=== PATIENT | male | born 1960 | race Caucasian/White ===

== ENCOUNTER 2016-06-03 07:56 | Day surgery (SDC) | payer MEDICARE ==
[2016-05-27 12:20] LABS: HEMATOCRIT 40.6 % (37.9-51.0); HEMOGLOBIN 13.6 g/dL (13.5-17.0); HGB HCT DIFFERENCE 0.2; MEAN CORPUSCULAR HEMOGLOBIN 30.1 pg (27.0-33.4); MEAN CORPUSCULAR HGB CONC 33.6 g/dL (32.0-36.0); MEAN CORPUSCULAR VOLUME 89 fl (80-97); RED BLOOD COUNT 4.54 10^6/uL (4.35-5.55); RED CELL DISTRIBUTION WIDTH 14.4 % (11.5-14.0); WHITE BLOOD COUNT 5.1 10^3/uL (4.0-10.5)
[2016-05-27 12:55] LABS: ALANINE AMINOTRANSFERASE 28 U/L (21-72); ALBUMIN 4.2 g/dL (3.5-5.0); ALKALINE PHOSPHATASE 89 U/L (38-126); AMYLASE 73 U/L (30-110); ANION GAP 14 (5-19); ASPARTATE AMINO TRANSFERASE 23 U/L (17-59); BILIRUBIN,DIRECT 0.4 mg/dL (0.0-0.4); BILIRUBIN,TOTAL 0.5 mg/dL (0.2-1.3); BLOOD UREA NITROGEN 22 mg/dL (7-20); CALCIUM 10.3 mg/dL (8.4-10.2); CARBON DIOXIDE 25 mmol/L (22-30); CHLORIDE 105 mmol/L (98-107); CREATININE RESULT 0.91 mg/dL (0.52-1.25); GLUCOSE 96 mg/dL (75-110); POTASSIUM 4.9 mmol/L (3.6-5.0); SODIUM 144.1 mmol/L (137-145); TOTAL PROTEIN 7.3 g/dL (6.3-8.2)
--- NOTE | 2016-05-27 14:40 | EKG REPORT ---
SEVERITY:- NORMAL ECG - SINUS RHYTHM : Confirmed by: Virgil Kramer 27-May-2016 14:40:01
[~2016-06-03 07:56] MED LIST: ACETAMINOPHEN 325 MG TABLET PO PRN; CEFAZOLIN 1 GM/D5W RTU 1 GM/50 ML RTUPB IV PRN; LACTATED RINGERS 1000 ML IV PRN
[2016-06-03] MEDS ORDERED: BUPIVACAINE HCL 0.25 % INJ/PF (2.5 MG/1 ML) 30 ML VIAL ONE (08:35)
[2016-06-03] MEDS ORDERED: MIDAZOLAM 2 MG/2 ML INJ ONE ×2 (09:06→10:08)
[2016-06-03] MEDS ORDERED: ALBUTEROL SULFATE 0.083% NEB 2.5 MG/3 ML AMPUL NEB ONE (09:06)
[2016-06-03] MEDS ORDERED: FENTANYL CITRATE INJ/PF 250 MCG/5 ML AMPULE ONE (10:08)
[2016-06-03] MEDS ORDERED: HYDROMORPHONE HCL INJ/PF 2 MG/ML AMPULE ONE (10:08)
[2016-06-03] MEDS ORDERED: PROPOFOL INJ 200 MG/20 ML VIAL IV ONE (10:09)
[2016-06-03] MEDS ORDERED: ACETAMINOPHEN 100 ML IV ONE (10:09)
[2016-06-03] MEDS ORDERED: DIPHENHYDRAMINE HCL 50 MG/ML VIAL IV PRN (10:59)
[2016-06-03] MEDS ORDERED: MEPERIDINE HCL/PF INJ 25 MG/1 ML DISP.SYRIN IV PRN (10:59)
[2016-06-03] MEDS ORDERED: PROMETHAZINE HCL INJ 25 MG/1 ML VIAL IV PRN ×2 (10:59)
[2016-06-03] MEDS ORDERED: FENTANYL CITRATE INJ/PF 100 MCG/2 ML AMPUL IV PRN ×3 (10:59)
--- NOTE | 2016-06-03 11:19 | Operative Report ---
Operative Report DATE OF SURGERY: 06/03/16 PREOPERATIVE DIAGNOSIS: Chronic cholecystitis POSTOPERATIVE DIAGNOSIS: Same OPERATION: Laparoscopic cholecystectomy SURGEON: RADHA MEADOWS BEEF PLUCK TRIMMER: ESSENCE BUNN ANESTHESIA: GA TISSUE REMOVED OR ALTERED: Gallbladder COMPLICATIONS: None ESTIMATED BLOOD LOSS: scant INTRAOPERATIVE FINDINGS: See below PROCEDURE: After obtaining informed consent, the patient was taken to the operating room. General Anesthesia was induced; the arms were extended, and the abdomen was exposed, and prepped and draped in a sterile fashion. Instrumentation was set up for laparoscopic cholecystectomy. Surgical plan and surgical timeout were conducted. A vertical incision was made above the umbilicus, and a verres needle was inserted uneventfully into the peritoneal cavity. Pneumoperitoneum was established. The verres needle was removed and a 5 mm trocar was inserted and a 5 mm flexible laparoscope was inserted. Visualization of the peritoneal cavity confirmed safe uneventful entry. Under direct visualization 3 additional 5 mm ports were established, one in the subxiphoid position and second in the subcostal position. Visualization of the hepatobiliary anatomy revealed no anatomic variations. Physical patient's obesity, and significant abdominal fat, a fifth port was placed in the sub-costal region under direct visualization, and a fan retractor was used to hold the omentum dorsally. There were multiple adhesions between the gallbladder and the gastro-colic region as well as the right first colon. All of these adhesions came down easily with blunt and minimal electrocautery dissection. Gallbladder was enlarged. Findings were clinically consistent with chronic cholecystitis . A grasper was placed on the fundus of the gallbladder and the gallbladder is elevated over the right surface of the liver; a second grasper was used to grasp the infundibulum of the gallbladder. The neck of the gallbladder and junction with the cystic duct was dissected out. The Cystic artery was in its usual location medial and cephalad to the cystic duct. The cystic artery had 2 branches and both were surrounded with a right angle clamp, clipped twice proximally and divided with laparoscopic scissors. We now opened the triangle of Calot by dividing the peritoneal reflection on both the medial and lateral sides of the cystic duct infundibular junction. The critical view was obtained. We now milked the cystic duct of any possible stones, clipped the cystic duct approximately 2 times once distally and divided with scissors. Multiple photos were taken. The gallbladder was now removed from the undersurface of the liver using hook cautery dissection. Graspers were repositioned and the gallbladder was removed uneventfully from the abdominal cavity through the super umbilical port site incision. The specimen was examined, then passed off to pathology for permanent analysis. We returned to the peritoneal cavity check for bleeding, and evidence of bile leak, and there was none. We Confirmed satisfactory placement of clips on cystic duct and cystic artery were secured . At this point we felt the operation was complete. The subcutaneous tissue was then anesthetized with quarter percent Marcaine Sponge and needle counts are correct. All ports removed under direct visualization pneumoperitoneum evacuated, and 5 mm port wounds closed with 3-0 Vicryl suture, benzoin and Steri-Strips. The patient was extubated, and taken to the recovery room in stable condition. The physician funeral home assistant, Ms. Bunn, provided assistance during this case by: Assisting and port insertion, retracting tissue, instillation of local anesthesia and closure of skin incisions.
--- NOTE | 2016-06-03 11:30 | PDOC DISCHARGE SUMMARY ---
Discharge Summary (SDC) - Discharge Final Diagnosis: cholecystitis Date of Surgery: 06/03/16 Discharge Date: 06/03/16 Condition: Stable Treatment or Instructions: [facility] [address], [place] [address] Discharge Instructions: Laparoscopic Surgery 1. General Information: a. DO NOT DRIVE a car or operate dangerous machinery for 3-4 days or while taking narcotic pain pills. b. DO NOT consume alcohol, tranquilizers, sleeping medications or any non- prescribed medications for 24 hours unless approved by your doctor or as long as taking narcotic prescription medications. c. DO NOT make important decisions or sign any important papers for the first 24 hours after surgery. d. When discharged home the same day of surgery have a responsible person with you for the first night. 2. Activity Restrictions:4 weeks. a. NO heavy lifting, straining abdominal muscles, bending over a lot, yard work, house work, or sports for [address] for 3-4 days or while taking _Percocet__ . c. It is fine to go for walks, up and down steps, ride in a car. d. Elevate your head when sleeping/resting. 3. Treatment: a. You may shower 24 hours after surgery, no baths or swimming for 2 weeks. Remove band-aids or dressings before shower but leave paper strips (steri-strips ) on the skin to fall off on their own. If still on at postoperative visit they will be removed then. b. Drainage of fluid or blood is not unusual from an incision. If occurs, you can clean with peroxide and cotton ball daily and cover with dry gauze until the wound seals. c. If a lot of bleeding occurs, you can hold pressure with a gauze or cloth over the site for 10 minutes and it will usually stop. If bleeding continues you will need to call for possible evaluation in office or emergency room. 4. Medications: a. ___Percocet_ may be taken for pain as needed, one tablet every 6 hours. Stop the narcotic when able since you cannot take it and drive, and they cause constipation. You may switch to plain Tylenol, Advil or Aleve as you transition from the narcotic. Many adults find good pain relief with Advil 600-800 mg three times a day with meals. This can cause indigestion, ulcers, and kidney problems with long-term use. b. You should resume all normal medications unless a change is specified by your doctors. 5. Diet: Begin with clear liquids and may progress to your normal diet if not nauseated. No high fat, high protein foods the day of surgery. 6. The following may occur after laparoscopic surgery: a. Shoulder or upper back ache from retained gas that should resolve in 1-2 days b. Soreness and bruising at incision sites will resolve with time. c. Scrotal swelling (labia in women) and bruising is often seen after hernia surgery. d. Sore throat e. Fatigue may last days to weeks. f. Difficulty urinating may occur and may need to come into emergency room for urinary catheter placement. 7. Notify Physician If: a. Worsening or pain not improved with pain medication b. Persistent nausea and vomiting c. Fever above 101 d. Persistent bleeding or swelling at operative site e. Unable to urinate and uncomfortable bladder 6-8 hours after surgery 8..Follow Up Care: a. Schedule a follow up appointment with your doctor for 2 weeks. In the event of any postoperative problems or questions or you may call the office during business hours or the On-Call physician evenings and weekends at [facility]. [facility] I understand the instructions for my postoperative care as described above and a copy has been given to me. Patient/Significant Other Witness Date Prescriptions: Oxycodone HCl/Acetaminophen [Percocet 5-325 mg Tablet] 1 tab PO Q6 PRN #20 tab PRN Reason: Discharge Diet: Other (Comments) - Start with clear liquids and progress as tolerated. Small portions only. Discharge Activity: Activity As Tolerated Report the Following to Your Physician Immediately: Nausea, Vomiting, Increase in Pain, Fever over 101 Degrees, Warmth, Drainage-Foul Smelling
[2016-06-03] MEDS ORDERED: EPHEDRINE SULFATE INJ 50 MG/1 ML AMPULE ONE (11:40)
[2016-06-03] MEDS ORDERED: FENTANYL CITRATE INJ/PF 100 MCG/2 ML AMPUL ONE (12:19)
[2016-06-03] MEDS ORDERED: OXYCODONE-ACETAMINOPHEN 5-325 MG TABLET ONE (13:19)
[2016-06-03] MEDS ORDERED: KETOROLAC TROMETHAMINE INJ/PF 30 MG/1 ML SDV ONE (13:19)
[2016-06-03] MEDS ORDERED: GLYCOPYRROLATE INJ 0.4 MG/2 ML VIAL ONE (13:46)
[2016-06-03] MEDS ORDERED: ONDANSETRON HCL INJ/PF 4 MG/2 ML SDV ONE (13:46)
[2016-06-03] MEDS ORDERED: NEOSTIGMINE METHYLSULFATE 10 MG/10 ML VIAL ONE (13:46)
[2016-06-03] MEDS ORDERED: SUCCINYLCHOLINE CHLORIDE INJ 200 MG/10 ML VIAL ONE (13:46)
[2016-06-03] MEDS ORDERED: DEXAMETHASONE SOD PHOSPHATE INJ 4 MG/1 ML VIAL ONE (13:46)
[2016-06-03] MEDS ORDERED: ROCURONIUM BROMIDE INJ 50 MG/5 ML VIAL IV ONE (13:46)
[2016-06-03 14:47] VITALS: BP 95/53
== END 2016-06-03 14:30 | disposition home or self-care (01) ==
LOC: OROUT 07:56
PROVIDERS: ATTEND Surgery
PROC: 0FT44ZZ Resection of Gallbladder, Percutaneous Endoscopic Approach (ICD-10-PCS; principal; 2016-06-03 10:30)
DX: K81.1 Chronic cholecystitis (principal); M19.90 Unspecified osteoarthritis, unspecified site; J44.9 Chronic obstructive pulmonary disease, unspecified; F41.9 Anxiety disorder, unspecified; F41.0 Panic disorder [episodic paroxysmal anxiety]; F17.210 Nicotine dependence, cigarettes, uncomplicated; I10 Essential (primary) hypertension; Z86.19 Personal history of other infectious and parasitic diseases; Z79.899 Other long term (current) drug therapy; Z79.1 Long term (current) use of non-steroidal anti-inflammatories (NSAID); Z79.51 Long term (current) use of inhaled steroids
CPT/HCPCS: 93005; 36415 ×2; 82150; 84132; 85027; 80076; 80048; 88304 ×2; 93010; 47562; J2250; J0690; J3490 ×2; J1100; J3010 ×2; J1885; A9270 ×2; J0330; J2405; J2704; J0131; 790; J1170

== ENCOUNTER 2016-12-02 08:43 | Day surgery (SDC) | payer MEDICARE ==
[~2016-12-02 08:43] MED LIST changes: -ACETAMINOPHEN 325 MG TABLET PO PRN; -CEFAZOLIN 1 GM/D5W RTU 1 GM/50 ML RTUPB IV PRN; +CHONDR SU A NA/HYALUR INTRAOC KIT (SURGICARE) ONE; +EPINEPHRINE INJ/PF 1 MG/1 ML AMPULE ONE; +KETOROLAC TROMETHAMINE 0.45% 4 DROP/0.4 ML DROPERETTE OD PRN; -LACTATED RINGERS 1000 ML IV PRN; +LIDOCAINE 1% INJ-PF (10 MG/ML) 30 ML SDV ONE; +TOBRAMYCIN SULFATE/DEXAMETH OPH OINTMENT 3.5 GM ONE
[2016-12-02] MEDS: TROPICAMIDE 1% OPH SOLN 3 ML OD PRN ×3 (08:57→09:31)
[2016-12-02] MEDS: CYCLOPENTOLATE 0.2%/PHENYLEPHRINE 1% OPH SOLN 2 ML OD PRN ×3 (08:57→09:31)
[2016-12-02] MEDS: BESIFLOXACIN HCL 0.6% OPH SUSP 5 ML BOTTLE OD PRN ×3 (08:58→10:02)
[2016-12-02] MEDS: TETRACAINE HCL 0.5% OPH SOLN 0.6 ML DROPERETTE OD PRN ×3 (08:59→09:37)
[2016-12-02] MEDS ORDERED: FENTANYL CITRATE INJ/PF 100 MCG/2 ML AMPUL ONE (09:27)
[2016-12-02] MEDS ORDERED: MIDAZOLAM 2 MG/2 ML INJ ONE (09:27)
== END 2016-12-02 11:00 | disposition home or self-care (01) ==
LOC: SC 08:43
PROVIDERS: ATTEND Ophthalmology
PROC: 089230Z Drainage of Right Anterior Chamber with Drainage Device, Percutaneous Approach (ICD-10-PCS; 2016-12-02)
PROC: 08RJ3JZ Replacement of Right Lens with Synthetic Substitute, Percutaneous Approach (ICD-10-PCS; principal; 2016-12-02 09:45)
DX: H25.11 Age-related nuclear cataract, right eye (principal); H40.1111 Primary open-angle glaucoma, right eye, mild stage; F17.210 Nicotine dependence, cigarettes, uncomplicated; M19.90 Unspecified osteoarthritis, unspecified site; J44.9 Chronic obstructive pulmonary disease, unspecified; I10 Essential (primary) hypertension; E78.00 Pure hypercholesterolemia, unspecified; D64.9 Anemia, unspecified; K21.9 Gastro-esophageal reflux disease without esophagitis; Z79.899 Other long term (current) drug therapy; Z88.5 Allergy status to narcotic agent; Z79.51 Long term (current) use of inhaled steroids; Z88.8 Allergy status to other drugs, medicaments and biological substances; R73.03 Prediabetes
CPT/HCPCS: 0191T; 66984; 142; C1783; J0171; J2250; J3010; J3490; V2630

== ENCOUNTER 2016-12-16 11:06 | Day surgery (SDC) | payer MEDICARE ==
[~2016-12-16 11:06] MED LIST changes: -KETOROLAC TROMETHAMINE 0.45% 4 DROP/0.4 ML DROPERETTE OD PRN; +KETOROLAC TROMETHAMINE 0.45% 4 DROP/0.4 ML DROPERETTE OS PRN
[2016-12-16] MEDS: TETRACAINE HCL 0.5% OPH SOLN 0.6 ML DROPERETTE OS PRN ×3 (12:10→12:50)
[2016-12-16] MEDS: TROPICAMIDE 1% OPH SOLN 3 ML OS PRN ×3 (12:11→12:35)
[2016-12-16] MEDS: BESIFLOXACIN HCL 0.6% OPH SUSP 5 ML BOTTLE OS PRN ×3 (12:11→13:11)
[2016-12-16] MEDS: CYCLOPENTOLATE 0.2%/PHENYLEPHRINE 1% OPH SOLN 2 ML OS PRN ×3 (12:11→12:35)
[2016-12-16] MEDS ORDERED: MIDAZOLAM 2 MG/2 ML INJ ONE ×2 (12:22→12:37)
== END 2016-12-16 13:47 | disposition home or self-care (01) ==
LOC: SC 11:06
PROVIDERS: ATTEND Ophthalmology
PROC: 089330Z Drainage of Left Anterior Chamber with Drainage Device, Percutaneous Approach (ICD-10-PCS; 2016-12-16)
PROC: 08RK3JZ Replacement of Left Lens with Synthetic Substitute, Percutaneous Approach (ICD-10-PCS; principal; 2016-12-16 12:15)
DX: H25.12 Age-related nuclear cataract, left eye (principal); H40.1121 Primary open-angle glaucoma, left eye, mild stage; F17.210 Nicotine dependence, cigarettes, uncomplicated; M19.90 Unspecified osteoarthritis, unspecified site; J44.9 Chronic obstructive pulmonary disease, unspecified; K21.9 Gastro-esophageal reflux disease without esophagitis; I10 Essential (primary) hypertension; E78.00 Pure hypercholesterolemia, unspecified; D64.9 Anemia, unspecified; R73.03 Prediabetes; G47.30 Sleep apnea, unspecified; N40.0 Benign prostatic hyperplasia without lower urinary tract symptoms; Z79.899 Other long term (current) drug therapy; Z88.5 Allergy status to narcotic agent; Z88.8 Allergy status to other drugs, medicaments and biological substances; Z98.41 Cataract extraction status, right eye; Z79.51 Long term (current) use of inhaled steroids
CPT/HCPCS: 0191T; 66984; 142; C1783; J0171; J2250; J3490; V2630

== ENCOUNTER 2017-10-09 15:45 | Emergency (ER) | payer MEDICARE ==
--- NOTE | 2017-10-09 16:34 | ER Document Report ---
ED Medical Screen (RME) - General Chief Complaint: Blood Pressure Problem Stated Complaint: NOT SLEEPING Time Seen by Provider: 10/09/17 16:31 Mode of Arrival: Wheelchair Information source: Patient, Relative TRAVEL OUTSIDE OF THE [place] IN LAST 30 DAYS: No - HPI Patient complains to provider of: slurred speech, insomnia Onset: Other - state pt. with slurred speech, insomnia and confusion starting 3 days ago. Is concerned he may have had a stroke - Related Data Allergies/Adverse Reactions: codeine [Codeine] Allergy (Verified 10/09/17 15:46) pregabalin [From Lyrica] Allergy (Verified 10/09/17 15:46) Past Medical History - Social History Chew tobacco use (# tins/day): No Frequency of alcohol use: None Drug Abuse: None - Past Medical History Cardiac Medical History: Reports: Hx Coronary Artery Disease, Hx Hypercholesterolemia, Hx Hypertension - MEDICATION Denies: Hx Heart Attack Pulmonary Medical History: Reports: Hx COPD, Hx Sleep Apnea Denies: Hx Asthma, Hx Bronchitis, Hx Pneumonia Neurological Medical History: Denies: Hx Cerebrovascular Accident, Hx Seizures Renal/ Medical History: Denies: Hx Peritoneal Dialysis GI Medical History: Reports: Hx Hepatitis - HEP C/REMISSION. Denies: Hx Hiatal Hernia, Hx Ulcer Musculoskeltal Medical History: Reports Hx Arthritis Psychiatric Medical History: Reports: Hx Depression Infectious Medical History: Reports: Hx Hepatitis - HEP C/REMISSION Past Surgical History: Reports: Hx Orthopedic Surgery - Back. Denies: Hx Open Heart Surgery, Hx Pacemaker - Immunizations Hx Diphtheria, Pertussis, Tetanus Vaccination: Yes Physical Exam - Vital signs Vitals: Temp Pulse Resp BP Pulse Ox 98.0 F 87 16 153/87 H 94 10/09/17 15:52 10/09/17 15:52 10/09/17 15:52 10/09/17 15:52 10/09/17 15:52 Course - Vital Signs Vital signs: Temp Pulse Resp BP Pulse Ox 98.0 F 87 16 153/87 H 94 10/09/17 15:52 10/09/17 15:52 10/09/17 15:52 10/09/17 15:52 10/09/17 15:52 Doctor's Discharge - Discharge Referrals: CATRACHITO RG MD [Primary Care Provider] - Follow up as needed
--- NOTE | 2017-10-09 17:29 | RADIOLOGY REPORT (SQ) ---
EXAM DESCRIPTION: CT HEAD WITHOUT COMPLETED DATE/TIME: 10/09/2017 5:17 pm REASON FOR STUDY: slurred speech, confusion COMPARISON: CT head 12/31/2015, 08/08/2015. TECHNIQUE: Axial images acquired through the brain without intravenous contrast. Images reviewed wi th bone, brain and subdural windows. Images stored on PACS. All CT scanners at this facility use dose modulation, iterative reconstruction, and/or weight based d osing when appropriate to reduce radiation dose to as low as reasonably achievable (ALARA). [facility]: Dose Right [facility]: CareDose [facility]: Dose Right [facility]: Teradose 4D [facility]: Smart [place] RADIATION DOSE: CT Rad equipment meets quality standard of care and radiation dose reduction techniq ues were employed. CTDIvol: 53.2 mGy. DLP: 964 mGy-cm. mGy. LIMITATIONS: None. FINDINGS: VENTRICLES: Normal size and contour. CEREBRUM: No mass effect. No hemorrhage. No midline shift. Normal welsh/white matter differentiatio n. No evidence for acute territorial infarction. CEREBELLUM: No mass effect. No hemorrhage. No alteration of density. No evidence for acute infarct ion. EXTRAAXIAL SPACES: No fluid collections. ORBITS AND GLOBE: Symmetrical contour of the globes. CALVARIUM: No depressed skull fracture. PARANASAL SINUSES: No air-fluid level. SOFT TISSUES: No hematoma. IMPRESSION: NO ACUTE INTRACRANIAL IMAGING FINDINGS. EVIDENCE OF ACUTE STROKE: NO. COMMENT: Quality ID # [id number]: Final reports with documentation of one or more dose reduction techniques (e.g., Automated exposure control, adjustment of the mA and/or kV according to patient size, use of iterative reconstruction technique) TECHNICAL DOCUMENTATION: JOB ID: [id number] 2010 [employer]- All Rights Reserved Reading location - IP/workstation name: [facility]
[2017-10-09 19:21] LABS: ABSOLUTE LYMPHOCYTES (AUTO) 1.9 10^3/uL (0.5-4.7); ABSOLUTE MONOCYTES (AUTO) 0.5 10^3/uL (0.1-1.4); ABSOLUTE NEUT (AUTO) 7.1 10^3/uL (1.7-8.2); BASOPHILS % (AUTO) 0.3 % (0-2); EOSINOPHILS % (AUTO) 0.1 % (0-6); HEMATOCRIT 40.6 % (37.9-51.0); HEMOGLOBIN 13.8 g/dL (13.5-17.0); LYMPHOCYTES % (AUTO) 19.8 % (13-45); MEAN CORPUSCULAR HEMOGLOBIN 30.7 pg (27.0-33.4); MEAN CORPUSCULAR HGB CONC 34.1 g/dL (32.0-36.0); MEAN CORPUSCULAR VOLUME 90 fl (80-97); MONOCYTES % (AUTO) 5.4 % (3-13); PLATELET COUNT 368 10^3/uL (150-450); RED CELL DISTRIBUTION WIDTH 14.1 % (11.5-14.0); SEGMENTED NEUTROPHILS % (AUTO) 74.4 % (42-78); TOTAL CELLS COUNTED % (AUTO) 100 %; WHITE BLOOD COUNT 9.6 10^3/uL (4.0-10.5)
[2017-10-09 19:25] LABS: APPEARANCE,URINE CLEAR; BILIRUBIN,URINE NEGATIVE (NEGATIVE); COLOR,URINE YELLOW; GLUCOSE, URINE NEGATIVE (NEGATIVE); KETONES,URINE NEGATIVE (NEGATIVE); LEUKOCYTE ESTERASE,URINE NEGATIVE (NEGATIVE); NITRITE,URINE NEGATIVE (NEGATIVE); PROTEIN,URINE NEGATIVE (NEGATIVE)
[2017-10-09 19:40] LABS: ALANINE AMINOTRANSFERASE 20 U/L (21-72); ALBUMIN 4.4 g/dL (3.5-5.0); ALKALINE PHOSPHATASE 95 U/L (38-126); ANION GAP 14 (5-19); ASPARTATE AMINO TRANSFERASE 19 U/L (17-59); BILIRUBIN,TOTAL 0.4 mg/dL (0.2-1.3); BLOOD UREA NITROGEN 40 mg/dL (7-20); CALCIUM 9.3 mg/dL (8.4-10.2); CARBON DIOXIDE 26 mmol/L (22-30); CHLORIDE 102 mmol/L (98-107); GLUCOSE 137 mg/dL (75-110); POTASSIUM 4.6 mmol/L (3.6-5.0); SODIUM 142.3 mmol/L (137-145)
--- NOTE | 2017-10-09 19:55 | ER Document Report ---
ED General - General Chief Complaint: Blood Pressure Problem Stated Complaint: NOT SLEEPING Time Seen by Provider: 10/09/17 16:31 Mode of Arrival: Wheelchair Notes: Patient is a 57-year-old male comes emergency department for chief complaint of difficulty sleeping, intermittent dizziness, leg pain, difficulty getting words out for the past days, and increased irritability. states he is just not acting himself. Patient states he did not want to come, she talked him into it. He denies fever or chills. He did have an episode of vomiting last night but none since. Past medical history includes hypertension, hyperlipidemia, CAD , COPD, sleep apnea, anxiety/depression, and back surgery. He is on chronic pain management, he states that he was afraid to take his trazodone because of his pain medications. He also has chronic dizziness with diagnosed vertigo, meclizine, did not take his meclizine today. He denies specific symptoms such as abdominal pain, chest pain, focal numbness or weakness, shortness of breath. He denies alcohol, has a history of cirrhosis in the past status post treatment. TRAVEL OUTSIDE OF THE [place] IN LAST 30 DAYS: No - Related Data Allergies/Adverse Reactions: codeine [Codeine] Allergy (Verified 10/09/17 16:35) pregabalin [From Lyrica] Allergy (Verified 10/09/17 16:35) Past Medical History - General Information source: Patient, Relative - Social History Smoking Status: Current Every Day Smoker Chew tobacco use (# tins/day): No Frequency of alcohol use: None Drug Abuse: None Lives with: Family Family History: Reviewed & Not Pertinent Patient has suicidal ideation: No Patient has homicidal ideation: No - Past Medical History Cardiac Medical History: Reports: Hx Coronary Artery Disease, Hx Hypercholesterolemia, Hx Hypertension - MEDICATION Denies: Hx Heart Attack Pulmonary Medical History: Reports: Hx COPD, Hx Sleep Apnea Denies: Hx Asthma, Hx Bronchitis, Hx Pneumonia Neurological Medical History: Denies: Hx Cerebrovascular Accident, Hx Seizures Renal/ Medical History: Denies: Hx Peritoneal Dialysis GI Medical History: Reports: Hx Hepatitis - HEP C/REMISSION. Denies: Hx Hiatal Hernia, Hx Ulcer Musculoskeletal Medical History: Reports Hx Arthritis Psychiatric Medical History: Reports: Hx Depression Infectious Medical History: Reports: Hx Hepatitis - HEP C/REMISSION Past Surgical History: Reports: Hx Cholecystectomy, Hx Neurologic Surgery - back , Hx Orthopedic Surgery - Back. Denies: Hx Open Heart Surgery, Hx Pacemaker - Immunizations Hx Diphtheria, Pertussis, Tetanus Vaccination: Yes Review of Systems - Review of Systems Constitutional: See HPI EENT: No symptoms reported Cardiovascular: No symptoms reported Respiratory: No symptoms reported Gastrointestinal: No symptoms reported Genitourinary: No symptoms reported Male Genitourinary: No symptoms reported Musculoskeletal: No symptoms reported Skin: No symptoms reported Hematologic/Lymphatic: No symptoms reported Neurological/Psychological: See HPI Physical Exam - Vital signs Vitals: Temp Pulse Resp BP Pulse Ox 98.0 F 87 16 153/87 H 94 10/09/17 15:52 10/09/17 15:52 10/09/17 15:52 10/09/17 15:52 10/09/17 15:52 - Notes Notes: GENERAL: Alert, interacts well. No acute distress. HEAD: Normocephalic, atraumatic. EYES: Pupils equal, round, and reactive to light. Extraocular movements intact. ENT: Oral mucosa moist, tongue midline. NECK: Full range of motion. Supple. Trachea midline. LUNGS: Clear to auscultation bilaterally, no wheezes, rales, or rhonchi. No respiratory distress. HEART: Regular rate and rhythm. No murmur ABDOMEN: Questionable mild distention, no tenderness, bowel sounds present EXTREMITIES: Moves all 4 extremities spontaneously. No edema, normal radial and dorsalis pedis pulses bilaterally. No cyanosis. BACK: no cervical, thoracic, lumbar midline tenderness. No saddle anesthesia, normal distal neurovascular exam. NEUROLOGICAL: Alert and oriented x3. Normal speech. [cranial nerves II through XII grossly intact]. PSYCH: Patient intermittently becomes very emotional and raises his voice, talks for an extended period before calming down. Apologetic afterwards. This is in a cycle. SKIN: Warm, dry, normal turgor. No rashes or lesions noted. Course - Re-evaluation Re-evalutation: Patient became very riled up after and his negative CAT scan of the head, yelling at his that he told her he was fine. He did become calm afterwards. Patient was started on prednisone 2 days ago, states that he was acting abnormally before this but I suspect his irritability, insomnia, and generally not feeling right are probably at least contributed to by the prednisone. He also got up in the middle of the night and vomited once last night, no abdominal complaints since. Patient is cooperative, alert, has no slurred speech, has a normal neurological evaluation, negative CAT scan of the head almost 3 days after his initial presenting symptoms, reported intermittent slurred speech which was mild, low suspicion of CVA as a result. Review of remaining labs shows nonspecific unremarkable CBC, chemistry shows creatinine at approximate baseline with elevated BUN, generally unremarkable otherwise. Urinalysis unremarkable. Discussed additional therapies or workup including given IV fluids but this was declined. Patient states he is ready to go home. Patient states that he will take his trazodone to help him sleep at night, he states he is going to stop the prednisone because it is not helping any feels like it is making him worse, discussed follow-up and return precautions, patient and state understanding and agreement. - Vital Signs Vital signs: Temp Pulse Resp BP Pulse Ox 97.9 F 80 18 149/94 H 93 10/09/17 20:30 10/09/17 20:30 10/09/17 20:30 10/09/17 20:30 10/09/17 20:30 - Laboratory Result Diagrams: 10/09/17 18:45 10/09/17 18:45 Laboratory results interpreted by me: 10/09/17 10/09/17 10/09/17 18:45 18:45 18:45 RDW 14.1 H BUN 40 H Creatinine 1.30 H Est GFR (Non-Af Amer) 57 L Glucose 137 H ALT 20 L Urine Urobilinogen 2.0 H Discharge - Discharge Clinical Impression: Dizziness, Medication side effect Insomnia Qualifiers: Insomnia type: unspecified Qualified Code(s): G47.00 - Insomnia, unspecified Condition: Stable Disposition: HOME, SELF-CARE Additional Instructions: Your laboratory workup, CAT scan, and evaluation did not show any concerning abnormalities. Your symptoms including insomnia, irritability, and the vomiting episode are most likely from the prednisone. I recommend stopping this. Continue other medications as prescribed. Return if you worsen including returned vomiting, fever, weakness on one side of body, severe headache, or any other concerning or worsening symptoms. Referrals: CATRACHITO RG MD [Primary Care Provider] - Follow up as needed
[2017-10-09 20:38] VITALS: BP 149/94
== END 2017-10-09 21:22 | disposition home or self-care (01) ==
LOC: ER 15:45
DX: G47.00 Insomnia, unspecified (principal); T38.0X5A Adverse effect of glucocorticoids and synthetic analogues, initial encounter; R42 Dizziness and giddiness; M79.606 Pain in leg, unspecified; X58.XXXA Exposure to other specified factors, initial encounter; F17.200 Nicotine dependence, unspecified, uncomplicated; Z88.6 Allergy status to analgesic agent
CPT/HCPCS: 36415; 70450; 80053; 81001; 85025; 99283

== ENCOUNTER 2018-08-01 18:00 | Emergency (ER) | payer MEDICARE ==
[2018-08-01] MEDS ORDERED: OXYCODONE-ACETAMINOPHEN 5-325 MG TABLET PO ONE (18:48)
--- NOTE | 2018-08-01 18:59 | ER Document Report ---
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 He had another incident and fell onto his foot and the said she heard "a pop around the whole house". Patient is in acute pain at this time and cannot bear any weight on the extremity. He has no range of motion due to pain and swelling. He does have distal pulses and brisk cap refill. He also complains of tailbone pain. No fevers or chills, no other complaints. - REPRODUCTIVE Reproductive: DENIES: : - MUSCULOSKELETAL Musculoskeletal: REPORTS: Extremity pain - R ankle Past Medical History - Social History Smoking Status: Current Every Day Smoker Chew tobacco use (# tins/day): No Frequency of alcohol use: None Drug Abuse: None Family History: Reviewed & Not Pertinent Patient has suicidal ideation: No Patient has homicidal ideation: No - Past Medical History Cardiac Medical History: Reports: Hx Coronary Artery Disease, Hx Hypercholesterolemia, Hx Hypertension - MEDICATION Denies: Hx Heart Attack Pulmonary Medical History: Reports: Hx COPD, Hx Sleep Apnea Denies: Hx Asthma, Hx Bronchitis, Hx Pneumonia Neurological Medical History: Denies: Hx Cerebrovascular Accident, Hx Seizures Renal/ Medical History: Denies: Hx Peritoneal Dialysis GI Medical History: Reports: Hx Hepatitis - HEP C/REMISSION. Denies: Hx Hiatal Hernia, Hx Ulcer Musculoskeletal Medical History: Reports Hx Arthritis Psychiatric Medical History: Reports: Hx Depression Infectious Medical History: Reports: Hx Hepatitis - HEP C/REMISSION Past Surgical History: Reports: Hx Cholecystectomy, Hx Neurologic Surgery - back, Hx Orthopedic Surgery - Back. Denies: Hx Open Heart Surgery, Hx Pacemaker - Immunizations Hx Diphtheria, Pertussis, Tetanus Vaccination: Yes Vertical Provider Document - CONSTITUTIONAL Notes: PHYSICAL EXAMINATION: Reviewed vital signs and charting by RN GENERAL: Alert, interacts well. Mild distress. HEAD: Normocephalic, atraumatic. EYES: Pupils equal, round. Extraocular movements intact. ENT: Oral mucosa moist, tongue midline. NECK: Full range of motion. Supple. Trachea midline. LUNGS: Clear to auscultation bilaterally, no wheezes, rales, or rhonchi. No respiratory distress. HEART: Regular rate and rhythm. No murmur ABDOMEN: Obese abdomen, soft, non-tender. EXTREMITIES: Significant swelling of the right ankle most prominent on the medial malleolus with acute tenderness to palpation, pulses are palpable 1+ DP and 1+ PT, with brisk cap refill. PSYCH: Normal affect, normal mood. SKIN: Warm, dry, normal turgor. No rashes or lesions noted. - INFECTION CONTROL TRAVEL OUTSIDE OF THE [place] IN LAST 30 DAYS: No Course - Re-evaluation Re-evalutation: 08/01/18 18:59 Plan to get a right ankle complete. I will also get a lumbar spine completed as patient complained of tailbone pain after the fall. Patient is a complex pain patient's I am giving him Percocet 33 25 2 tablets p.o. once. Of note, at triage patient's blood pressure was 203/175 I am asking PCT to get a another set of vitals. 08/01/18 19:45 X-ray shows bimalleolar tubular/fibula fracture of the right lower extremity. No evidence of coccyx or sacral fracture seen in the other image. Plan to put a posterior splint/stirrup splint, give crutches, and have patient follow-up with orthopedics in the morning. Vital signs are within normal limits he has a normal 08/01/18 20:07 - Vital Signs Vital signs: Temp Pulse Resp BP Pulse Ox 98.4 F 85 20 203/175 H 93 08/01/18 18:04 08/01/18 18:04 08/01/18 18:04 08/01/18 18:04 08/01/18 18:04 Discharge - Discharge Clinical Impression: Bimalleolar fracture of right ankle Qualifiers: Encounter type: initial encounter Fracture type: closed Qualified Code(s): S82.841A - Displaced bimalleolar fracture of right lower leg, initial encounter for closed fracture Condition: Good Disposition: HOME, SELF-CARE Additional Instructions: You are seen in emergency department this evening for a fracture of your right ankle. You broke post the distal tibia and the distal fibula, this is called a bimalleolar fracture. We have placed you in a splint and you need to follow-up with orthopedics first thing in the morning. Please call them at 730 or 8:00. You can take your home pain medications that you have prescribed for pain control. If your toes starts to turn purple or you are losing circulation, you have severe shortness of breath or chest pain, or you have any other concerning symptoms please come back to the emergency department for reevaluation. Referrals: CATRACHITO RG MD [Primary Care Provider] - Follow up as needed RICA SILVERIO DO [ACTIVE STAFF] - Follow up tomorrow
[2018-08-01 19:33] VITALS: BP 140/80
--- NOTE | 2018-08-01 19:40 | RADIOLOGY REPORT (SQ) ---
EXAM DESCRIPTION: L SPINE WHOLE COMPLETED DATE/TIME: 08/01/2018 7:16 pm REASON FOR STUDY: fall COMPARISON: None. NUMBER OF VIEWS: Five views including obliques. TECHNIQUE: AP, lateral, oblique, and sacral radiographic images acquired of the lumbar spine. LIMITATIONS: None. FINDINGS: MINERALIZATION: Normal. SEGMENTATION: Normal. No transitional anatomy. ALIGNMENT: Normal. VERTEBRAE: Maintained height. No fracture or worrisome bone lesion. DISCS: Disc spaces are narrowed from L4-S1. POSTERIOR ELEMENTS: Hypertrophic facet changes are present throughout the lumbar spine. HARDWARE: None in the spine. PARASPINAL SOFT TISSUES: Normal. PELVIS: Intact as visualized. No fractures or worrisome bone lesions. SI joints intact. OTHER: No other significant finding. IMPRESSION: Degenerative disc disease and facet arthropathy. TECHNICAL DOCUMENTATION: JOB ID: [id number]- All Rights Reserved Reading location - IP/workstation name: [email or web address]
--- NOTE | 2018-08-01 19:41 | RADIOLOGY REPORT (SQ) ---
EXAM DESCRIPTION: ANKLE RIGHT COMPLETE COMPLETED DATE/TIME: 08/01/2018 7:16 pm REASON FOR STUDY: fall COMPARISON: None. NUMBER OF VIEWS: Three views. TECHNIQUE: AP, lateral, and oblique radiographic images acquired of the right ankle. LIMITATIONS: None. FINDINGS: MINERALIZATION: Normal. BONES: There is an oblique fracture of the distal fibula and transverse fracture of the medial malleo loan. JOINTS: No effusions. SOFT TISSUES: No soft tissue swelling. No foreign body. OTHER: No other significant finding. IMPRESSION: Bimalleolar fracture. TECHNICAL DOCUMENTATION: JOB ID: [id number] [employer]- All Rights Reserved Reading location - IP/workstation name: [email or web address]
== END 2018-08-01 20:59 | disposition home or self-care (01) ==
LOC: ER 18:00
PROC: 2W3QX1Z Immobilization of Right Lower Leg using Splint (ICD-10-PCS; principal; 2018-08-01)
DX: S82.841A Displaced bimalleolar fracture of right lower leg, initial encounter for closed fracture (principal); M53.3 Sacrococcygeal disorders, not elsewhere classified; W19.XXXA Unspecified fall, initial encounter; Y93.9 Activity, unspecified; Y92.009 Unspecified place in unspecified non-institutional (private) residence as the place of occurrence of the external cause; Y99.9 Unspecified external cause status; M19.90 Unspecified osteoarthritis, unspecified site; F32.9 Major depressive disorder, single episode, unspecified; Z90.49 Acquired absence of other specified parts of digestive tract; I25.10 Atherosclerotic heart disease of native coronary artery without angina pectoris; E78.00 Pure hypercholesterolemia, unspecified; I10 Essential (primary) hypertension; Z79.899 Other long term (current) drug therapy; J44.9 Chronic obstructive pulmonary disease, unspecified; G47.30 Sleep apnea, unspecified; F17.200 Nicotine dependence, unspecified, uncomplicated
CPT/HCPCS: 99283; 73610; 72110; 29515; A9270

== ENCOUNTER 2018-08-08 09:37 | Day surgery (SDC) | payer MEDICARE ==
[~2018-08-08 09:37] MED LIST changes: +CEFAZOLIN 1 GM/D5W RTU 0 GM/0 ML RTUPB IV ONE; +CEFAZOLIN 2 GM/D5W RTU 2 GM/50 ML RTUPB IV ONE; +CEFAZOLIN 2 GM/D5W RTU 2 GM/50 ML RTUPB IV PRN; -CHONDR SU A NA/HYALUR INTRAOC KIT (SURGICARE) ONE; -EPINEPHRINE INJ/PF 1 MG/1 ML AMPULE ONE; -KETOROLAC TROMETHAMINE 0.45% 4 DROP/0.4 ML DROPERETTE OS PRN; -LIDOCAINE 1% INJ-PF (10 MG/ML) 30 ML SDV ONE; -TOBRAMYCIN SULFATE/DEXAMETH OPH OINTMENT 3.5 GM ONE
[2018-08-08 10:28] VITALS: BP 132/101
[2018-08-08 10:44] LABS: HEMATOCRIT 39.5 % (37.9-51.0); HEMOGLOBIN 13.4 g/dL (13.5-17.0); MEAN CORPUSCULAR HEMOGLOBIN 29.8 pg (27.0-33.4); MEAN CORPUSCULAR HGB CONC 33.8 g/dL (32.0-36.0); MEAN CORPUSCULAR VOLUME 88 fl (80-97); PLATELET COUNT 293 10^3/uL (150-450); RED BLOOD COUNT 4.48 10^6/uL (4.35-5.55); RED CELL DISTRIBUTION WIDTH 14.6 % (11.5-14.0); WHITE BLOOD COUNT 6.9 10^3/uL (4.0-10.5)
[2018-08-08] MEDS ORDERED: DEXAMETHASONE SOD PHOSPHATE INJ 4 MG/1 ML VIAL ONE (11:02)
[2018-08-08] MEDS ORDERED: FENTANYL CITRATE INJ/PF 100 MCG/2 ML AMPUL ONE (11:02)
[2018-08-08] MEDS ORDERED: MIDAZOLAM 2 MG/2 ML INJ ONE (11:02)
[2018-08-08] MEDS ORDERED: ONDANSETRON HCL INJ/PF 4 MG/2 ML SDV ONE (11:02)
[2018-08-08] MEDS ORDERED: PROPOFOL INJ 200 MG/20 ML VIAL IV ONE (11:03)
[2018-08-08 11:06] LABS: ANION GAP 13 (5-19); BLOOD UREA NITROGEN 19 mg/dL (7-20); CALCIUM 9.7 mg/dL (8.4-10.2); CARBON DIOXIDE 26 mmol/L (22-30); CHLORIDE 103 mmol/L (98-107); GLUCOSE 115 mg/dL (75-110); POTASSIUM 4.5 mmol/L (3.6-5.0); SODIUM 141.5 mmol/L (137-145)
[2018-08-08] MEDS ORDERED: BUPIVACAINE HCL 0.5%-EPI 1:200000 INJ/PF 30 ML VIAL ONE (11:07)
--- NOTE | 2018-08-08 11:47 | RADIOLOGY REPORT (SQ) ---
EXAM DESCRIPTION: CHEST SINGLE VIEW COMPLETED DATE/TIME: 08/08/2018 11:02 am REASON FOR STUDY: PRE-OP COMPARISON: 12/31/2015 EXAM PARAMETERS: NUMBER OF VIEWS: One view. TECHNIQUE: Single frontal radiographic view of the chest acquired. RADIATION DOSE: NA LIMITATIONS: None. FINDINGS: LUNGS AND PLEURA: No opacities, masses or pneumothorax. No pleural effusion. MEDIASTINUM AND HILAR STRUCTURES: No masses. Contour normal. HEART AND VASCULAR STRUCTURES: Heart normal in size. Normal vasculature. BONES: No acute findings. HARDWARE: None in the chest. OTHER: No other significant finding. IMPRESSION: 1. NO ACUTE RADIOGRAPHIC FINDING IN THE CHEST. TECHNICAL DOCUMENTATION: JOB ID: [id number] [employer]- All Rights Reserved Reading location - IP/workstation name: [email or web address]
--- NOTE | 2018-08-08 12:55 | EKG REPORT ---
SEVERITY:- ABNORMAL ECG - SINUS RHYTHM ABNRM R PROG, CONSIDER ASMI OR LEAD PLACEMENT NO CHANGE FROM PREVIOUS EKG. : Confirmed by: Joshua Jiménez MD 08-Aug-2018 12:55:03
--- NOTE | 2018-08-08 12:59 | PDOC CONSULTATION ---
Consultation Consult Date: 08/08/18 Attending physician:: RIK MCCLENDON Provider Consulted: BK YAN Consult reason:: abn ekg History of Present Illness Admission Date/PCP: CATRACHITO RG MD Patient complains of: Right ankle discomfort. History of Present Illness: PRIETO KAHN is a 57 year old male, was admitted preop for right ankle fracture following a fall. Patient while being interviewed by the anesthesiologist had a episode of diaphoresis. A twelve-lead EKG obtained showed QS complex V1 and V2. This is felt to be changed from before. I was asked to evaluate patient in preop consultation. Patient has known history of CAD, COPD. Patient did have a nuclear stress test in March which was apparently unremarkable. On questioning patient denied any chest pain or shortness of breath. Attendant with the patient tells me that he gets sweating spells often without any chest pains. Patient denies being diabetic. Past Medical History Cardiac Medical History: Reports: Coronary Artery Disease, Hyperlipidema, Hypertension - MEDICATION Denies: Myocardial Infarction Pulmonary Medical History: Reports: Chronic Obstructive Pulmonary Disease (COPD), Sleep Apnea Denies: Asthma, Bronchitis, Pneumonia Neurological Medical History: Denies: Seizures GI Medical History: Reports: Hepatitis - HEP C/REMISSION Denies: Hiatal Hernia Musculoskeltal Medical History: Reports: Arthritis Psychiatric Medical History: Reports: Depression Hematology: Denies: Anemia, Sickle Cell Disease Past Surgical History Past Surgical History: Reports: Cholecystectomy, Orthopedic Surgery - Back Denies: Pacemaker Social History Information Source: Patient Smoking Status: Current Every Day Smoker Frequency of Alcohol Use: Rare Drugs: None Hx Prescription Drug Abuse: No Family History Family History: Reviewed & Not Pertinent Parental Family History Reviewed: Yes Children Family History Reviewed: Yes Sibling(s) Family History Reviewed.: Yes Medication/Allergy Home Medications: Albuterol Sulfate [Proair HFA] 1 puff PO Q4H PRN 08/08/15 Baclofen [Baclofen 20 mg Tablet] 20 mg PO QID 08/08/15 Buspirone HCl 20 mg PO TID 08/08/15 Furosemide 40 mg PO DAILY PRN 08/08/15 Gabapentin 800 mg PO QID 08/08/15 Lisinopril 40 mg PO DAILY 08/08/15 Meloxicam 7.5 mg PO BID 06/09/16 Pantoprazole Sodium 40 mg PO DAILY 08/08/15 Quetiapine Fumarate [Seroquel] 200 mg PO QHS 08/08/15 Sertraline HCl 150 mg PO DAILY 08/08/15 Simvastatin [Zocor 20 mg Tablet] 20 mg PO QHS 08/08/15 Tamsulosin HCl 0.4 mg PO DAILY 08/08/15 Trazodone HCl 300 mg PO QHS 08/08/15 Fluticasone/Vilanterol [Breo Ellipta 100-25 Mcg INH] 1 each IH DAILY 11/26/16 Meclizine HCl 12.5 mg PO DAILY PRN 11/26/16 Polyethylene Glycol 3350 [Miralax Powder 17 gm/Packet] 1 packet PO DAILY 11/26/16 Methadone HCl [Dolophine 10 Mg Tablet] 10 mg PO TID 08/08/18 Allergies/Adverse Reactions: codeine [Codeine] Allergy (Verified 08/08/18 09:59) pregabalin [From Lyrica] Allergy (Verified 08/08/18 09:59) Review of Systems Constitutional: ABSENT: chills, fever(s), headache(s), weight gain, weight loss Eyes: ABSENT: visual disturbances Ears: ABSENT: hearing changes Cardiovascular: ABSENT: chest pain, dyspnea on exertion, edema, orthropnea, palpitations Respiratory: ABSENT: cough, hemoptysis Gastrointestinal: ABSENT: abdominal pain, constipation, diarrhea, hematemesis, hematochezia, nausea, vomiting Genitourinary: ABSENT: dysuria, hematuria Musculoskeletal: PRESENT: other - Right ankle fracture. ABSENT: joint swelling Integumentary: ABSENT: rash, wounds Neurological: ABSENT: abnormal gait, abnormal speech, confusion, dizziness, focal weakness, syncope Psychiatric: ABSENT: anxiety, depression, homidical ideation, suicidal ideation Endocrine: ABSENT: cold intolerance, heat intolerance, polydipsia, polyuria Hematologic/Lymphatic: ABSENT: easy bleeding, easy bruising Physical Exam Vital Signs: Temp Pulse Resp BP Pulse Ox 98.1 F 115 H 20 132/101 H 90 L 08/08/18 10:02 08/08/18 10:02 08/08/18 10:02 08/08/18 10:02 08/08/18 10:02 Intake & Output 08/07/18 08/08/18 08/09/18 06:59 06:59 06:59 Intake Total 0 Balance 0 Weight 110.677 kg General appearance: PRESENT: no acute distress, well-developed, well-nourished Head exam: PRESENT: atraumatic, normocephalic Eye exam: PRESENT: conjunctiva pink, EOMI, PERRLA. ABSENT: scleral icterus Ear exam: PRESENT: normal external ear exam Mouth exam: PRESENT: moist, tongue midline Neck exam: ABSENT: carotid bruit, JVD, lymphadenopathy, thyromegaly Respiratory exam: PRESENT: clear to auscultation stanley. ABSENT: rales, rhonchi, wheezes Cardiovascular exam: PRESENT: RRR. ABSENT: diastolic murmur, rubs, systolic murmur Pulses: PRESENT: normal dorsalis pedis pul Vascular exam: PRESENT: normal capillary refill GI/Abdominal exam: PRESENT: normal bowel sounds, soft. ABSENT: distended, guarding, mass, organolmegaly, rebound, tenderness Rectal exam: PRESENT: deferred Extremities exam: PRESENT: full ROM, +1 edema - Right lower extremity secondary to fracture., other - Right ankle fracture noted.. ABSENT: calf tenderness, clubbing, pedal edema Neurological exam: PRESENT: alert, awake, oriented to person, oriented to place, oriented to time, oriented to situation, CN II-XII grossly intact. ABSENT: motor sensory deficit Psychiatric exam: PRESENT: appropriate affect, normal mood. ABSENT: homicidal ideation, suicidal ideation Skin exam: PRESENT: dry, intact, warm. ABSENT: cyanosis, rash Results Laboratory Results: 08/08/18 10:20 08/08/18 10:20 08/08/18 08/08/18 10:20 10:20 WBC 6.9 RBC 4.48 Hgb 13.4 L Hct 39.5 MCV 88 MCH 29.8 MCHC 33.8 RDW 14.6 H Plt Count 293 Sodium 141.5 Potassium 4.5 Chloride 103 Carbon Dioxide 26 Anion Gap 13 BUN 19 Creatinine 0.87 Est GFR ( Amer) > 60 Est GFR (Non-Af Amer) > 60 Glucose 115 H Calcium 9.7 Impressions: Chest X-Ray 08/08/18 00:00 IMPRESSION: 1. NO ACUTE RADIOGRAPHIC FINDING IN THE CHEST. Assessment & Plan - Diagnosis (1) Abnormal electrocardiogram Is this a current diagnosis for this admission?: Yes (2) COPD (chronic obstructive pulmonary disease) Qualifiers: COPD type: unspecified COPD Qualified Code(s): J44.9 - Chronic obstructive pulmonary disease, unspecified Is this a current diagnosis for this admission?: Yes (3) Hypertension Qualifiers: Hypertension type: essential hypertension Qualified Code(s): I10 - Essential (primary) hypertension Is this a current diagnosis for this admission?: Yes (4) Bimalleolar fracture of right ankle Qualifiers: Encounter type: initial encounter Fracture type: closed Qualified Code(s): S82.841A - Displaced bimalleolar fracture of right lower leg, initial encounter for closed fracture Is this a current diagnosis for this admission?: Yes (5) Dyspnea Qualifiers: Dyspnea type: shortness of breath Qualified Code(s): R06.02 - Shortness of breath Is this a current diagnosis for this admission?: Yes - Notes Notes: Patient noted to have abnormal electrocardiogram. Possibly related to lead placement. Will repeat an EKG with proper lead placement. Since patient has dyspnea, will get a stat 2D echocardiogram. Will also look for any wall motion abnormalities in view of abnormal EKG. Patient advised on quitting smoking. Patient also advised to report any chest pains or increased shortness of breath. Further plans after review of 2D echo and EKG. Discussed with anesthesiologist and orthopedic surgeon. - Time Time Spent: 30 to 50 Minutes Medications reviewed and adjusted accordingly: Yes
--- NOTE | 2018-08-08 13:10 | EKG REPORT ---
SEVERITY:- NORMAL ECG - SINUS RHYTHM : Confirmed by: Joshua Jiménez MD 08-Aug-2018 13:09:18
--- NOTE | 2018-08-08 14:56 | XCELERA REPORT ---
[address] [address] Transthoracic Echocardiogram Report Name: PRIETO KAHN Age: 57 yrs Gender: Male : 1960 Patient Status: Outpatient [facility] Study Date: 08/08/2018 01:34 PM Height: 68 in Weight: 244 lb BSA: 2.2 m2 Procedure: A complete two-dimensional transthoracic echocardiogram was performed (2D, M-mode, spectral and color flow Doppler). The study was technically adequate with some images being suboptimal in quality. Reason For Study: CARDIAC CLEARANCE Ordering Physician: VIRGIL YAN Performed By: Patito Estevez Interpretation Summary The left ventricular ejection fraction is normal. There is borderline concentric left ventricular hypertrophy. Doppler measurements suggest pseudonormalized left ventricular relaxation, which is associated with grade II/IV or mild to moderate diastolic dysfunction The left ventricle is grossly normal size. No regional wall motion abnormalities noted. The right ventricular systolic function is normal. Borderline left atrial enlargement. The right atrium is normal in size There is a trace amount of mitral regurgitation There is no mitral valve stenosis. No aortic regurgitation is present. There is no aortic valve stenosis There is a trace or physiologic amount of tricuspid regurgitation There is no tricuspid stenosis. The aortic root is not well visualized but is probably normal size. The inferior vena cava was not well visualized There is no pericardial effusion. MMode/2D Measurements & Calculations RVDd: 5.1 cm LVIDd: 4.5 cm FS: 37.3 % Ao root diam: 2.8 cm IVSd: 1.0 cm LVIDs: 2.8 cm EDV(Teich): 91.8 ml Ao root area: 6.3 cm2 LVPWd: 1.0 cm ESV(Teich): 29.9 ml EF(Teich): 67.4 % Doppler Measurements & Calculations MV E max marilee: MV dec slope: Ao V2 max: LV V1 max P.9 cm/sec 258.3 cm/sec2 132.7 cm/sec 4.7 mmHg MV A max marilee: MV dec time: 0.21 sec Ao max PG: LV V1 max: 91.2 cm/sec 7.0 mmHg 108.3 cm/sec MV E/A: 0.59 PA V2 max: TR max marilee: 75.2 cm/sec 233.7 cm/sec PA max P.3 mmHgTR max P.8 mmHg Left Ventricle The left ventricle is grossly normal size. There is borderline concentric left ventricular hypertrophy. The left ventricular ejection fraction is normal. Doppler measurements suggest pseudonormalized left ventricular relaxation, which is associated with grade II/IV or mild to moderate diastolic dysfunction. No regional wall motion abnormalities noted. Right Ventricle The right ventricle is grossly normal size. There is normal right ventricular wall thickness. The right ventricular systolic function is normal. Atria The right atrium is normal in size. Borderline left atrial enlargement. Interarterial septum not well visualized and not well dopplered. Cannot comment on ASD/PFO presence. Mitral Valve The mitral valve leaflets are sclerotic, but show no functional abnormalities. There is no mitral valve stenosis. There is a trace amount of mitral regurgitation. Aortic Valve The aortic valve is sclerotic, but shows no functional abnormality. There is no aortic valve stenosis. No aortic regurgitation is present. Tricuspid Valve The tricuspid valve is not well visualized, but is grossly normal. There is no tricuspid stenosis. There is a trace or physiologic amount of tricuspid regurgitation. Pulmonic Valve The pulmonic valve is not well seen, but is grossly normal. There is no pulmonic valvular stenosis. There is a trace or physiologic amount of pulmonic regurgitation. Great Vessels The aortic root is not well visualized but is probably normal size. The inferior vena cava was not well visualized. Effusions There is no pericardial effusion. : VIRGIL YAN > Virgil Yan
--- NOTE | 2018-08-08 14:59 | Progress Note ---
Provider Note Provider Note: Mr. Whitaker had 2D echo which showed normal LVEF. No definite wall motion abnormalities were noted. EKG was noted to be relatively unremarkable and unchanged. Repeat EKG with proper lead placement shows reapperience of R wave in lead V2. Patient is relatively asymptomatic. Patient therefore cleared for surgery.
--- NOTE | 2018-08-12 18:06 | PDOC H&P ---
History of Present Illness Admission Date/PCP: CATRACHITO RG MD History of Present Illness: PRIETO KAHN is a 57 year old male 57 yo WM with R bimlleolar ankle fracture Past Medical History Cardiac Medical History: Reports: Coronary Artery Disease, Hyperlipidema, Hypertension - MEDICATION Denies: Myocardial Infarction Pulmonary Medical History: Reports: Chronic Obstructive Pulmonary Disease (COPD), Sleep Apnea Denies: Asthma, Bronchitis, Pneumonia Neurological Medical History: Denies: Seizures GI Medical History: Reports: Hepatitis - HEP C/REMISSION Denies: Hiatal Hernia Musculoskeltal Medical History: Reports: Arthritis Psychiatric Medical History: Reports: Depression Hematology: Denies: Anemia, Sickle Cell Disease Past Surgical History Past Surgical History: Reports: Cholecystectomy Denies: Pacemaker Social History Information Source: Patient, [facility] Smoking Status: Current Every Day Smoker Frequency of Alcohol Use: Rare Drugs: None Hx Prescription Drug Abuse: No Family History Family History: Reviewed & Not Pertinent Parental Family History Reviewed: No Children Family History Reviewed: No Sibling(s) Family History Reviewed.: No Medication/Allergy Home Medications: Albuterol Sulfate [Proair HFA] 1 puff PO Q4H PRN 08/08/15 Baclofen [Baclofen 20 mg Tablet] 20 mg PO QID 08/08/15 Buspirone HCl 20 mg PO TID 08/08/15 Furosemide 40 mg PO DAILY PRN 08/08/15 Gabapentin 800 mg PO QID 08/08/15 Lisinopril 40 mg PO DAILY 08/08/15 Meloxicam 7.5 mg PO BID 08/08/15 Pantoprazole Sodium 40 mg PO DAILY 08/08/15 Quetiapine Fumarate [Seroquel] 200 mg PO QHS 08/08/15 Sertraline HCl 150 mg PO DAILY 08/08/15 Simvastatin [Zocor 20 mg Tablet] 20 mg PO QHS 08/08/15 Tamsulosin HCl 0.4 mg PO DAILY 08/08/15 Trazodone HCl 300 mg PO QHS 08/08/15 Fluticasone/Vilanterol [Breo Ellipta 100-25 Mcg INH] 1 each IH DAILY 11/26/16 Meclizine HCl 12.5 mg PO DAILY PRN 11/26/16 Polyethylene Glycol 3350 [Miralax Powder 17 gm/Packet] 1 packet PO DAILY 11/26/16 Methadone HCl [Dolophine 10 mg Tablet] 10 mg PO TID 08/08/18 Albuterol Sulfate [Ventolin 0.083% Neb 2.5 mg/3 mL Ampul] 1 vial DAILY 08/10/18 Lidocaine [Lidocare] 1 each TP PRN PRN 08/10/18 Oxycodone HCl/Acetaminophen [Percocet 10-325 mg Tablet] 1 each PO Q6 PRN #40 tablet 08/10/18 Allergies/Adverse Reactions: codeine [Codeine] Allergy (Verified 08/10/18 08:13) N/V/D, hives latex Allergy (Verified 08/10/18 08:33) Blisters, takes skin off pregabalin [From Lyrica] Allergy (Verified 08/10/18 08:13) Generalized edema Review of Systems All systems: as per PMH Physical Exam Vital Signs: Temp Pulse Resp BP Pulse Ox 36.7 C 115 H 20 132/101 H 90 L 08/08/18 10:02 08/08/18 10:02 08/08/18 10:02 08/08/18 10:02 08/08/18 10:02 General appearance: PRESENT: mild distress, well-developed, well-nourished Head exam: PRESENT: normocephalic Respiratory exam: PRESENT: unlabored Cardiovascular exam: PRESENT: RRR Vascular exam: PRESENT: normal capillary refill GI/Abdominal exam: PRESENT: soft Rectal exam: PRESENT: deferred Extremities exam: PRESENT: other - RLE in post splint Neurological exam: PRESENT: alert, awake, oriented to person, oriented to place, oriented to time, oriented to situation. ABSENT: motor sensory deficit Psychiatric exam: PRESENT: appropriate affect, normal mood. ABSENT: homicidal ideation, suicidal ideation Skin exam: PRESENT: dry, intact, warm. ABSENT: cyanosis, rash Results Laboratory Results: 08/08/18 10:20 08/08/18 10:20 Impressions: Chest X-Ray 08/08/18 00:00 IMPRESSION: 1. NO ACUTE RADIOGRAPHIC FINDING IN THE CHEST. Status: Imported from PACS Assessment & Plan - Diagnosis (1) Bimalleolar ankle fracture Qualifiers: Encounter type: initial encounter Fracture type: closed Laterality: right Qualified Code(s): S82.841A - Displaced bimalleolar fracture of right lower leg, initial encounter for closed fracture Is this a current diagnosis for this admission?: Yes Plan: ORIF - Time Time Spent: 30 to 50 Minutes Anticipated discharge: Home Within: within 24 hours
== END 2018-08-08 14:40 | disposition home or self-care (01) ==
LOC: OROUT 09:37
PROVIDERS: ATTEND Orthopaedic Surgery
DX: S82.841A Displaced bimalleolar fracture of right lower leg, initial encounter for closed fracture (principal); W19.XXXA Unspecified fall, initial encounter; R61 Generalized hyperhidrosis; I25.10 Atherosclerotic heart disease of native coronary artery without angina pectoris; J44.9 Chronic obstructive pulmonary disease, unspecified; E78.5 Hyperlipidemia, unspecified; I10 Essential (primary) hypertension; G47.30 Sleep apnea, unspecified; B18.2 Chronic viral hepatitis C; F17.210 Nicotine dependence, cigarettes, uncomplicated; Z79.51 Long term (current) use of inhaled steroids; Z79.899 Other long term (current) drug therapy; Z88.5 Allergy status to narcotic agent
CPT/HCPCS: 36415; 85027; 80048; 93306; 71045; 93005; 93010; J0690; J1100; J2250; J2405; J2704; J3010; J3490

== ENCOUNTER 2018-08-10 07:55 | Day surgery (SDC) | payer MEDICARE ==
[~2018-08-10 07:55] MED LIST changes: -CEFAZOLIN 1 GM/D5W RTU 0 GM/0 ML RTUPB IV ONE
[2018-08-10] MEDS ORDERED: PROPOFOL INJ 200 MG/20 ML VIAL IV ONE (11:19)
[2018-08-10] MEDS ORDERED: MIDAZOLAM 2 MG/2 ML INJ ONE (11:19)
[2018-08-10] MEDS ORDERED: FENTANYL CITRATE INJ/PF 250 MCG/5 ML AMPULE ONE (11:19)
[2018-08-10] MEDS ORDERED: BUPIVACAINE HCL 0.5%-EPI 1:200000 INJ/PF 30 ML VIAL ONE (11:27)
[2018-08-10] MEDS ORDERED: DIPHENHYDRAMINE HCL 50 MG/ML VIAL IV PRN (11:54)
[2018-08-10] MEDS ORDERED: PROMETHAZINE HCL INJ 25 MG/1 ML VIAL IV PRN ×2 (11:54)
[2018-08-10] MEDS ORDERED: ONDANSETRON HCL INJ/PF 4 MG/2 ML SDV IV PRN (11:54)
[2018-08-10] MEDS ORDERED: MORPHINE SULFATE 10 MG/ML INJ IV PRN (11:54)
[2018-08-10] MEDS ORDERED: MEPERIDINE HCL/PF INJ 25 MG/1 ML DISP.SYRIN IV PRN (11:54)
[2018-08-10] MEDS ORDERED: FENTANYL CITRATE INJ/PF 100 MCG/2 ML AMPUL IV PRN ×3 (11:54)
[2018-08-10] MEDS ORDERED: ACETAMINOPHEN 1,000 MG/100 ML RTUPB IV ONE (12:05)
--- NOTE | 2018-08-10 12:20 | Discharge Summary ---
Discharge Summary (SDC) - Discharge Final Diagnosis: Right ankle fracture Date of Surgery: 08/10/18 Discharge Date: 08/10/18 Condition: Good Treatment or Instructions: Touchdown weightbearing restriction right lower extremity Prescriptions: Oxycodone HCl/Acetaminophen [Percocet 10-325 mg Tablet] 1 each PO Q6 PRN #40 tablet PRN Reason: Referrals: CATRACHITO RG MD [Primary Care Provider] - Discharge Diet: As Tolerated, Regular Respiratory Treatments at Home: Deep Breathing/Coughing Discharge Activity: Balance Activity w/Rest, No tub bath Home Care Assistance: None Needed Report the Following to Your Physician Immediately: Shortness of Breath, Fever over 101 Degrees, Drainage-Foul Smelling
--- NOTE | 2018-08-10 12:22 | Operative Report ---
Operative Report DATE OF SURGERY: 08/10/18 PREOPERATIVE DIAGNOSIS: Right bimalleolar ankle fracture OPERATION: ORIF right bimalleolar ankle fracture SURGEON: RIK MCCLENDON ANESTHESIA: GA ESTIMATED BLOOD LOSS: Minimal PROCEDURE: With the patient supine on the operating table the right lower extremities elevated for exsanguination tourniquet inflated 280 torr. Longitudinal incision was made over the lateral aspect of the distal fibula and sharp dissection was carried incision down to the underlying periosteal layer. The periosteum was divided. The fracture was identified. Its reduced anatomically and held with a tenaculum. Subsequently a Pierce 6 hole titanium distal fibula plate is applied to the lateral surface and secured with 3 screws proximally and 5 screws distally. The hardware placement and fracture reduction were assessed fluoroscopically which is felt to be adequate. Attention is now turned to the medial aspect of the ankle. A longitudinal incision made on the medial malleolus. The medial malleolus is reduced anatomically using a dental pick. It subsequent held in place with 2 K wires for the Pierce 4.0 mm cannulated screw set. Subsequently 2 x 50 mm cannulated short thread 4.0 millimeter screws were placed over the guidewires to secure medial malleolar reduction. Fluoroscopic is used to evaluate fracture reduction hardware position was felt to be adequate. The tourniquet is deflated. Hemostasis obtained with electrocautery. Wound is irrigated with bulb lavage. Subsequent closed in layers interrupted Vicryl followed by daniella. Sterile compressive dressing was applied followed by a cam walker. The patient's return to the PACU in satisfactory condition.
[2018-08-10] MEDS ORDERED: FENTANYL CITRATE INJ/PF 100 MCG/2 ML AMPUL ONE (13:32)
--- NOTE | 2018-08-10 13:56 | RADIOLOGY REPORT (SQ) ---
EXAM DESCRIPTION: NO CHG FLUORO; ANKLE RIGHT AP/LATERAL COMPLETED DATE/TIME: 08/10/2018 1:27 pm REASON FOR STUDY: ORIF RT ANKLE ASST WITH FLUORO IN OR COMPARISON: None. FLUOROSCOPY TIME: 0.1 minutes 3 Images saved to PACS LIMITATIONS: None. PROCEDURE: ORIF right ankle fracture. FINDINGS: Images from fluoro document placement of 2 long cannulated screws in the medial malleolus and a compression plate on the distal fibula. IMPRESSION: ORIF right ankle. Refer to operative note for further information. COMMENT: PQRS 6045F: Fluoroscopy time of the procedure is documented in the report. TECHNICAL DOCUMENTATION: JOB ID: [id number] [employer]- All Rights Reserved Reading location - IP/workstation name: [email or web address]
--- NOTE | 2018-08-10 13:56 | RADIOLOGY REPORT (SQ) ---
EXAM DESCRIPTION: NO CHG FLUORO; ANKLE RIGHT AP/LATERAL COMPLETED DATE/TIME: 08/10/2018 1:27 pm REASON FOR STUDY: ORIF RT ANKLE ASST WITH FLUORO IN OR COMPARISON: None. FLUOROSCOPY TIME: 0.1 minutes 3 Images saved to PACS LIMITATIONS: None. PROCEDURE: ORIF right ankle fracture. FINDINGS: Images from fluoro document placement of 2 long cannulated screws in the medial malleolus and a compression plate on the distal fibula. IMPRESSION: ORIF right ankle. Refer to operative note for further information. COMMENT: PQRS 6045F: Fluoroscopy time of the procedure is documented in the report. TECHNICAL DOCUMENTATION: JOB ID: [id number] [employer]- All Rights Reserved Reading location - IP/workstation name: [email or web address]
[2018-08-10] MEDS ORDERED: OXYCODONE-ACETAMINOPHEN 5-325 MG TABLET PO ONE (14:00)
[2018-08-10] MEDS ORDERED: OXYCODONE HCL IR 5 MG TABLET PO ONE (14:00)
[2018-08-10] MEDS ORDERED: ACETAMINOPHEN 325 MG TABLET ONE (14:14)
[2018-08-10] MEDS ORDERED: OXYCODONE HCL SR 10 MG TABLET PO ONE (14:14)
[2018-08-10] MEDS ORDERED: OXYCODONE HCL IR 5 MG TABLET ONE (14:15)
[2018-08-10] MEDS ORDERED: LIDOCAINE 2% INJ-PF (20 MG/ML) 2 ML AMPUL ONE (14:59)
[2018-08-10] MEDS ORDERED: KETOROLAC TROMETHAMINE 60 MG/2 ML SDV ONE (14:59)
[2018-08-10] MEDS ORDERED: PHENYLEPHRINE HCL INJ/PF 10 MG/1 ML SDV ONE (14:59)
[2018-08-10] MEDS ORDERED: ONDANSETRON HCL INJ/PF 4 MG/2 ML SDV ONE (14:59)
[2018-08-10] MEDS ORDERED: DEXAMETHASONE SOD PHOSPHATE INJ 4 MG/1 ML VIAL ONE (14:59)
[2018-08-10 16:27] VITALS: BP 113/65
== END 2018-08-10 15:35 | disposition home or self-care (01) ==
LOC: OROUT 07:55
PROVIDERS: ATTEND Orthopaedic Surgery
DX: S82.841A Displaced bimalleolar fracture of right lower leg, initial encounter for closed fracture (principal); W19.XXXA Unspecified fall, initial encounter; J44.9 Chronic obstructive pulmonary disease, unspecified; I10 Essential (primary) hypertension; I25.10 Atherosclerotic heart disease of native coronary artery without angina pectoris; Z88.5 Allergy status to narcotic agent; E78.5 Hyperlipidemia, unspecified; F17.210 Nicotine dependence, cigarettes, uncomplicated; B18.2 Chronic viral hepatitis C; G47.33 Obstructive sleep apnea (adult) (pediatric); Z79.899 Other long term (current) drug therapy; Z79.51 Long term (current) use of inhaled steroids; Z91.040 Latex allergy status
CPT/HCPCS: 73600; 27814; C1713 ×6; C1769; A9270 ×2; J2250; J3490 ×2; J1100; J1885; J3010 ×2; J2370; J2405; J2704; J0690; J0131

== ENCOUNTER 2018-09-04 00:11 | Observation (INO) | payer MEDICARE ==
[2018-09-04 01:36] LABS: ABSOLUTE BASOPHILS # (AUTO) 0.1 10^3/uL (0.0-0.2); ABSOLUTE EOSINOPHILS # (AUTO) 0.2 10^3/uL (0.0-0.6); ABSOLUTE LYMPHOCYTES (AUTO) 1.5 10^3/uL (0.5-4.7); ABSOLUTE MONOCYTES (AUTO) 0.9 10^3/uL (0.1-1.4); ABSOLUTE NEUT (AUTO) 8.5 10^3/uL (1.7-8.2); BASOPHILS % (AUTO) 0.8 % (0-2); EOSINOPHILS % (AUTO) 1.5 % (0-6); LYMPHOCYTES % (AUTO) 13.4 % (13-45); MEAN CORPUSCULAR HEMOGLOBIN 29.3 pg (27.0-33.4); MEAN CORPUSCULAR HGB CONC 33.4 g/dL (32.0-36.0); MEAN CORPUSCULAR VOLUME 88 fl (80-97); MONOCYTES % (AUTO) 8.2 % (3-13); PLATELET COUNT 437 10^3/uL (150-450); RED CELL DISTRIBUTION WIDTH 14.6 % (11.5-14.0); SEGMENTED NEUTROPHILS % (AUTO) 76.1 % (42-78); TOTAL CELLS COUNTED % (AUTO) 100 %; WHITE BLOOD COUNT 11.2 10^3/uL (4.0-10.5)
[2018-09-04 01:57] LABS: ALANINE AMINOTRANSFERASE 12 U/L (21-72); ALBUMIN 3.8 g/dL (3.5-5.0); ALKALINE PHOSPHATASE 137 U/L (38-126); ANION GAP 8 (5-19); ASPARTATE AMINO TRANSFERASE 18 U/L (17-59); BILIRUBIN,DIRECT 0.4 mg/dL (0.0-0.4); BILIRUBIN,TOTAL 0.4 mg/dL (0.2-1.3); BLOOD UREA NITROGEN 31 mg/dL (7-20); CALCIUM 9.4 mg/dL (8.4-10.2); CARBON DIOXIDE 30 mmol/L (22-30); CHLORIDE 100 mmol/L (98-107); GLUCOSE 120 mg/dL (75-110); POTASSIUM 4.3 mmol/L (3.6-5.0); SODIUM 137.9 mmol/L (137-145); TOTAL PROTEIN 7.8 g/dL (6.3-8.2)
[2018-09-04] MEDS ORDERED: PIPERACILLIN/TAZOBACTAM 3.375 GM VIAL IV ONE (02:32)
[2018-09-04] MEDS ORDERED: VANCOMYCIN HCL INJ 1000 MG VIAL IV ONE (02:32)
[2018-09-04] MEDS ORDERED: NORMAL SALINE 1000 ML 1,000 ML IV ONE (02:32)
[2018-09-04] MEDS ORDERED: OXYCODONE-ACETAMINOPHEN 5-325 MG TABLET PO ONE (02:33)
--- NOTE | 2018-09-04 02:58 | ER Document Report ---
ED General - General Chief Complaint: Wound Infection Stated Complaint: POST OPT PROBLEM Time Seen by Provider: 09/04/18 02:18 Primary Care Provider: CATRACHITO RG MD [Primary Care Provider] - Follow up as needed Mode of Arrival: Wheelchair Information source: Patient TRAVEL OUTSIDE OF THE [place] IN LAST 30 DAYS: No - HPI Patient complains to provider of: Right lower extremity redness and ulceration. Onset/Duration: Gradual Quality of pain: Achy, Dull Severity: Moderate Pain Level: 2 Context: Patient had surgery on 10 August 2018 on his right lower extremity. Surgery was done by Dr. Morales. He said over a week now the wound has broken down and 3 days ago that become red with purulent discharge and ulceration. He denies fever/chills, no chest pain or shortness of breath. Patient also denies abdominal pain. Associated symptoms: None Exacerbated by: Denies Relieved by: Denies Similar symptoms previously: No Recently seen / treated by doctor: Yes - Related Data Allergies/Adverse Reactions: codeine [Codeine] Allergy (Verified 09/04/18 00:43) N/V/D, hives latex Allergy (Verified 09/04/18 00:43) Blisters, takes skin off pregabalin [From Lyrica] Allergy (Verified 09/04/18 00:43) Generalized edema Past Medical History - Social History Smoking Status: Current Every Day Smoker Family History: Reviewed & Not Pertinent Patient has suicidal ideation: No Patient has homicidal ideation: No - Past Medical History Cardiac Medical History: Reports: Hx Coronary Artery Disease, Hx Hypercholesterolemia, Hx Hypertension - MEDICATION Denies: Hx Heart Attack Pulmonary Medical History: Reports: Hx COPD, Hx Sleep Apnea Denies: Hx Asthma, Hx Bronchitis, Hx Pneumonia Neurological Medical History: Denies: Hx Cerebrovascular Accident, Hx Seizures Renal/ Medical History: Denies: Hx Peritoneal Dialysis GI Medical History: Reports: Hx Hepatitis - HEP C/REMISSION. Denies: Hx Hiatal Hernia, Hx Ulcer Musculoskeletal Medical History: Reports Hx Arthritis Psychiatric Medical History: Reports: Hx Depression Infectious Medical History: Reports: Hx Hepatitis - HEP C/REMISSION Past Surgical History: Reports: Hx Cholecystectomy, Hx Neurologic Surgery - back, Hx Orthopedic Surgery - right leg/ankle. Denies: Hx Open Heart Surgery, Hx Pacemaker - Immunizations Hx Diphtheria, Pertussis, Tetanus Vaccination: Yes Review of Systems - Review of Systems Constitutional: No symptoms reported EENT: No symptoms reported Cardiovascular: No symptoms reported Respiratory: No symptoms reported Gastrointestinal: No symptoms reported Genitourinary: No symptoms reported Male Genitourinary: No symptoms reported Musculoskeletal: Leg swelling, Other - Surgical wound breakdown. Skin: Other - Lower extremity ulceration from the site of surgery. Hematologic/Lymphatic: No symptoms reported Neurological/Psychological: No symptoms reported -: Yes All other systems reviewed and negative Physical Exam - Vital signs Vitals: Temp Pulse Resp BP Pulse Ox 98.0 F 98 20 104/74 92 09/04/18 00:54 09/04/18 00:54 09/04/18 00:54 09/04/18 00:54 09/04/18 00:54 Interpretation: Normal - General General appearance: Appears well, Alert - HEENT Head: Normocephalic, Atraumatic Eyes: Normal Pupils: PERRL - Respiratory Respiratory status: No respiratory distress Chest status: Nontender Breath sounds: Normal Chest palpation: Normal - Cardiovascular Rhythm: Regular Heart sounds: Normal auscultation Murmur: No - Abdominal Inspection: Normal Distension: No distension Bowel sounds: Normal Tenderness: Nontender Organomegaly: No organomegaly - Back Back: Normal, Nontender - Extremities General upper extremity: Normal inspection, Nontender, Normal color, Normal ROM, Normal temperature General lower extremity: Normal ROM, Normal temperature, Other - Right lower leg surgical wound dehiscence with ulcerations, erythema and purulent discharge.. No: Jacquelin's sign - Neurological Neuro grossly intact: Yes Cognition: Normal Orientation: AAOx4 [place] Coma Scale Eye Opening: Spontaneous Shanae Coma Scale Verbal: Oriented Shanae Coma Scale Motor: Obeys Commands Shanae Coma Scale Total: 15 Speech: Normal Motor strength normal: LUE, RUE, LLE, RLE Sensory: Normal - Psychological Associated symptoms: Normal affect, Normal mood - Skin Skin Temperature: Warm Skin Moisture: Dry Skin Color: Normal Course - Vital Signs Vital signs: Temp Pulse Resp BP Pulse Ox 98.0 F 98 20 104/74 92 09/04/18 00:54 09/04/18 00:54 09/04/18 00:54 09/04/18 00:54 09/04/18 00:54 - Laboratory Result Diagrams: 09/04/18 01:25 09/04/18 01:25 Laboratory results interpreted by me: 09/04/18 09/04/18 09/04/18 01:25 01:25 01:25 WBC 11.2 H RBC 4.10 L Hgb 12.0 L Hct 36.0 L RDW 14.6 H Absolute Neutrophils 8.5 H ESR 110 H APTT BUN 31 H Creatinine 1.52 H Est GFR ( Amer) 57 L Est GFR (Non-Af Amer) 47 L Glucose 120 H ALT 12 L Alkaline Phosphatase 137 H C-Reactive Protein 09/04/18 09/04/18 01:25 01:25 WBC RBC Hgb Hct RDW Absolute Neutrophils ESR APTT 37.4 H BUN Creatinine Est GFR ( Amer) Est GFR (Non-Af Amer) Glucose ALT Alkaline Phosphatase C-Reactive Protein 215.3 H - Diagnostic Test Radiology reviewed: Reports reviewed - Transfer of Care Notes: 09/04/18 04:08 I called and spoke with the orthopedic surgeon Dr. Morales. He wants patient to be admitted to his service for further evaluation and management. Discharge - Discharge Clinical Impression: Surgical wound breakdown Qualifiers: Encounter type: initial encounter Qualified Code(s): T81.31XA - Disruption of external operation (surgical) wound, not elsewhere classified, initial encounter Lower extremity ulceration Qualifiers: Laterality: right Non-pressure ulcer stage: unspecified non-pressure ulcer stage Qualified Code(s): L97.919 - Non-pressure chronic ulcer of unspecified part of right lower leg with unspecified severity Condition: Stable Disposition: ADMITTED INPATIENT Admitting Provider: Dr. Morales (Orthopedic surgeon) Unit Admitted: Surgical Floor Referrals: CATRACHITO RG MD [Primary Care Provider] - Follow up as needed
[2018-09-04 03:08] LABS: INTERNATIONAL RATION (INR) 1.12; PROTHROMBIN TIME 14.5 SEC (11.4-15.4)
[2018-09-04 03:09] LABS: PARTIAL THROMBOPLASTIN TIME 37.4 SEC (23.5-35.8)
--- NOTE | 2018-09-04 03:22 | RADIOLOGY REPORT (SQ) ---
EXAM DESCRIPTION: XR TIBIA FIBULA 2 VIEWS COMPLETED DATE/TME: 09/04/2018 02:33 CLINICAL HISTORY: 58 years, Male, Right lower leg ulcer COMPARISON: None. NUMBER OF VIEWS: Two TECHNIQUE: AP and lateral views of the right tibia and fibula LIMITATIONS: None. FINDINGS: A metallic side plate with multiple screws stabilizes a fracture of the distal fibula. There two metallic screws stabilizing the medial malleolus. There is no acute fracture or dislocation involving the proximal tibia or fibula. There is no erosion or periosteal reaction. There is mild soft tissue swelling surrounding the ankle. IMPRESSION: Postsurgical changes involving the distal fibula and medial malleolus with no evidence of hardware complication. No definite findings of osteomyelitis. copyright 2010 [employer]- All Rights Reserved
[2018-09-04] MEDS ORDERED: ONDANSETRON 4 MG TAB.RAPDIS PO PRN (11:43)
[2018-09-04] MEDS: HYDROCODONE/ACETAMINOPHEN 5-325 MG TABLET PO PRN (17:29)
[2018-09-04] MEDS: CEFTRIAXONE 2 GM/D5W RTU 2 GM/50 ML RTUPB IV SCH (17:30)
[2018-09-04] MEDS: VANCOMYCIN HCL 1,000 MG in DEXTROSE 5%-WATER 250 ML IV SCH (18:25)
[2018-09-04] MEDS ORDERED: FUROSEMIDE 20 MG TABLET PO PRN (19:56)
[2018-09-04] MEDS ORDERED: ALBUTEROL SULFATE HFA (90 MCG/PUFF) 200 PUFF/8.5 GM MDI IH PRN (19:56)
[2018-09-04] MEDS ORDERED: MECLIZINE HCL 12.5 MG TABLET PO PRN (19:56)
[2018-09-04] MEDS ORDERED: OXYCODONE-ACETAMINOPHEN 5-325 MG TABLET PO PRN (19:56)
[2018-09-04] MEDS ORDERED: BACLOFEN 20 MG TABLET ONE (21:53)
[2018-09-04] MEDS ORDERED: SIMVASTATIN 10 MG TABLET PO SCH (22:00)
[2018-09-04] MEDS ORDERED: PRAZOSIN HCL 4 MG PO SCH (22:00)
[2018-09-04] MEDS: QUETIAPINE FUMARATE 100 MG TABLET PO SCH (23:09)
[2018-09-04] MEDS: METHADONE HCL 10 MG TABLET PO SCH (23:10)
[2018-09-04] MEDS: TRAZODONE HCL 50 MG TABLET PO SCH (23:11)
[2018-09-04] MEDS: SIMVASTATIN 10 MG TABLET PO SCH (23:12)
[2018-09-04] MEDS: BACLOFEN 20 MG TABLET PO SCH (23:13)
[2018-09-04] MEDS: GABAPENTIN 400 MG CAPSULE PO SCH (23:13)
[2018-09-05] MEDS ORDERED: OXYCODONE-ACETAMINOPHEN 5-325 MG TABLET PO PRN (05:00)
[2018-09-05] MEDS ORDERED: MECLIZINE HCL 12.5 MG TABLET PO PRN (05:00)
[2018-09-05] MEDS: GABAPENTIN 400 MG CAPSULE PO SCH ×4 (05:32→23:04)
[2018-09-05] MEDS: CEFTRIAXONE 2 GM/D5W RTU 2 GM/50 ML RTUPB IV SCH ×2 (05:32→17:13)
[2018-09-05] MEDS: METHADONE HCL 10 MG TABLET PO SCH ×3 (05:33→21:51)
[2018-09-05] MEDS: PANTOPRAZOLE SODIUM 40 MG TABLET.DR PO SCH (05:33)
[2018-09-05] MEDS: VANCOMYCIN HCL 1,000 MG in DEXTROSE 5%-WATER 250 ML IV SCH ×2 (05:33→17:13)
--- NOTE | 2018-09-05 07:03 | PDOC H&P ---
History of Present Illness Admission Date/PCP: 09/04/18 04:28 CATRACHITO RG MD History of Present Illness: PRIETO KAHN is a 58 year old male Patient is a 58-year-old white male status post open reduction internal fixation of a right bimalleolar ankle fracture on August 10, 2018. Patient underwent staple removal 2 weeks and now presented over the weekend with erythema and drainage from the lateral incision. He is admitted and started on empiric antibiotics. Past Medical History Cardiac Medical History: Reports: Coronary Artery Disease, Hyperlipidema, Hypertension - MEDICATION Denies: Myocardial Infarction Pulmonary Medical History: Reports: Chronic Obstructive Pulmonary Disease (COPD), Sleep Apnea Denies: Asthma, Bronchitis, Pneumonia Neurological Medical History: Denies: Seizures GI Medical History: Reports: Hepatitis - HEP C/REMISSION Denies: Hiatal Hernia Musculoskeltal Medical History: Reports: Arthritis Psychiatric Medical History: Reports: Depression Hematology: Denies: Anemia, Sickle Cell Disease Past Surgical History Past Surgical History: Reports: Cholecystectomy, Orthopedic Surgery - ORIF right bimalleolar ankle fracture, 08/10/2018 Denies: Pacemaker Social History Information Source: Patient, [facility] Lives with: Spouse/Significant other Smoking Status: Current Every Day Smoker Cigarettes Packs Per Day: 1 Frequency of Alcohol Use: None Hx Recreational Drug Use: No Drugs: None Hx Prescription Drug Abuse: No - Advance Directive Resuscitation Status: Full Code Family History Family History: Reviewed & Not Pertinent Parental Family History Reviewed: No Children Family History Reviewed: No Sibling(s) Family History Reviewed.: No Medication/Allergy Home Medications: Albuterol Sulfate [Proair HFA] 1 puff PO Q4H PRN 08/08/15 Baclofen [Baclofen 20 mg Tablet] 20 mg PO Q6 08/08/15 Buspirone HCl 22.5 mg PO Q8 08/08/15 Furosemide 20 mg PO DAILY PRN 08/08/15 Gabapentin 800 mg PO Q6 08/08/15 Lisinopril 40 mg PO DAILY 08/08/15 Pantoprazole Sodium 40 mg PO DAILY 08/08/15 Sertraline HCl 200 mg PO DAILY 08/08/15 Simvastatin [Zocor 20 mg Tablet] 20 mg PO QHS 08/08/15 Tamsulosin HCl 0.4 mg PO DAILY 08/08/15 Trazodone HCl 300 mg PO QHS 08/08/15 Fluticasone/Vilanterol [Breo Ellipta 100-25 Mcg INH] 1 each IH DAILY 11/26/16 Meclizine HCl 12.5 mg PO DAILY PRN 11/26/16 Polyethylene Glycol 3350 [Miralax Powder 17 gm/Packet] 17 gm PO DAILY 11/26/16 Methadone HCl [Dolophine 10 mg Tablet] 5 mg PO Q8 08/08/18 Albuterol Sulfate [Ventolin 0.083% Neb 2.5 mg/3 mL Ampul] 2.5 mg NEB DAILY 08/10/18 Oxycodone HCl/Acetaminophen [Percocet 10-325 mg Tablet] 1 each PO BIDP PRN 09/04/18 Prazosin HCl [Minipress] 4 mg PO QHS 09/04/18 Quetiapine Fumarate [Seroquel 100 mg Tablet] 100 mg PO DAILY 09/04/18 Quetiapine Fumarate [Seroquel] 500 mg PO QHS 09/04/18 Allergies/Adverse Reactions: codeine [Codeine] Allergy (Verified 09/04/18 00:43) N/V/D, hives latex Allergy (Verified 09/04/18 00:43) Blisters, takes skin off pregabalin [From Lyrica] Allergy (Verified 09/04/18 00:43) Generalized edema Review of Systems All systems: as per PMH Physical Exam Vital Signs: Temp Pulse Resp BP Pulse Ox 36.6 C 70 15 132/78 H 91 L 09/04/18 23:00 09/04/18 23:00 09/04/18 23:00 09/04/18 23:00 09/04/18 23:00 Intake & Output 09/03/18 09/04/18 09/05/18 06:59 06:59 06:59 Intake Total 2840 Output Total 600 Balance 2240 Weight 110.9 kg 110.5 kg Physical Exam: Middle-aged white male lying comfortably hospital bed. is sitting next room in the recliner. Patient is alert, oriented, and appropriate. General appearance: PRESENT: no acute distress, mild distress Head exam: PRESENT: normocephalic Respiratory exam: PRESENT: unlabored Cardiovascular exam: PRESENT: RRR Pulses: PRESENT: +1 pedal pulses bilateral Vascular exam: PRESENT: normal capillary refill GI/Abdominal exam: PRESENT: soft Rectal exam: PRESENT: deferred Extremities exam: PRESENT: other - The medial incision on the right ankle is covered with Steri-Strips. Is clean dry and intact. The lateral incision is approximated. The erythema that is been reported at the time of admission seems to be significantly decreased. There continues to be some serosanguineous drainage. Induration is minor to moderate and tenderness is present. Distal neurovascular examination of the toes are intact. Neurological exam: PRESENT: alert, awake, oriented to person, oriented to place, oriented to time, oriented to situation. ABSENT: motor sensory deficit Psychiatric exam: PRESENT: appropriate affect, normal mood. ABSENT: homicidal ideation, suicidal ideation Skin exam: PRESENT: dry, intact, warm. ABSENT: cyanosis, rash Results Laboratory Results: 09/04/18 01:25 09/04/18 01:25 09/04/18 06:10 Lactic Acid 0.7 Impressions: Tibia/Fibula X-Ray 09/04/18 02:33 IMPRESSION: Postsurgical changes involving the distal fibula and medial malleolus with no evidence of hardware complication. No definite findings of osteomyelitis. copyright 2010 [employer]- All Rights Reserved Status: Imported from PACS Assessment & Plan - Diagnosis (1) Surgical wound breakdown Qualifiers: Encounter type: initial encounter Qualified Code(s): T81.31XA - Disruption of external operation (surgical) wound, not elsewhere classified, initial encounter Is this a current diagnosis for this admission?: Yes Plan: 58-year-old white male now 1 month status post ORIF of a right bimalleolar ankle fracture with a cellulitis being treated empirically with antibiotics. Patient remains afebrile. Overall clinical situation seems to be improving. - Time Time Spent: 50 to 70 Minutes Anticipated discharge: Home with Homehealth Within: Other
[2018-09-05] MEDS ORDERED: FUROSEMIDE 20 MG TABLET PO PRN (07:30)
[2018-09-05] MEDS: ALBUTEROL SULFATE 0.083% NEB 2.5 MG/3 ML AMPUL NEB SCH (09:04)
[2018-09-05] MEDS: OXYCODONE HCL IR 5 MG TABLET PO PRN (09:12)
[2018-09-05] MEDS: QUETIAPINE FUMARATE 100 MG TABLET PO SCH ×2 (09:13→21:52)
[2018-09-05] MEDS: LISINOPRIL 10 MG TABLET PO SCH (09:13)
[2018-09-05] MEDS: FLUTICASONE/VILANTEROL 100-25 MCG/DOSE IH SCH (09:14)
[2018-09-05] MEDS: SERTRALINE HCL 50 MG TABLET PO SCH (09:14)
[2018-09-05] MEDS: BUSPIRONE HCL 10 MG TABLET PO SCH ×3 (09:14→17:12)
[2018-09-05] MEDS: POLYETHYLENE GLYCOL 3350 POWDER 17 GM/1 PACKET PO SCH (09:15)
[2018-09-05] MEDS: BACLOFEN 20 MG TABLET PO SCH ×4 (09:22→21:53)
[2018-09-05] MEDS ORDERED: LISINOPRIL 10 MG TABLET PO SCH (10:00)
[2018-09-05] MEDS: HYDROCODONE/ACETAMINOPHEN 5-325 MG TABLET PO PRN ×2 (11:39→18:29)
--- NOTE | 2018-09-05 16:30 | RADIOLOGY REPORT (SQ) ---
EXAM DESCRIPTION: PICC INSERTION; FLUORO/CV PLACEMENT; U/S GUIDE FOR VASCULAR ACCESS COMPLETED DATE/TIME: 09/05/2018 3:39 pm REASON FOR STUDY: IV ANTIBIOTICS; IV ABX; IV ACCESS COMPARISON: None. FLUOROSCOPY TIME: 1 minutes 7 seconds 1 ultrasound and 1 digital fluoroscopic images saved to PACS. TECHNIQUE: Fluoroscopic and ultrasound guided PICC placement. LIMITATIONS: None. PROCEDURE: After written consent and assessment were obtained, the patient was brought into the fluo roscopy room and placed supine on the table. Ultrasound evaluation of potential access sites were per formed. After successfully identifying a patent left basilic vein, the left arm was prepped and drape d in a sterile fashion along with the ultrasound probe. The entry site was anesthetized with 1% lidoc jared. A 21 gauge 7 cm needle was advanced through the skin and into the basilic vein under live ultra sound guidance. An ultrasound image was saved to PACS confirming access site. A .018 guide wire was then inserted through the needle and into the venous system. The needle was then removed and an 11 b lade scalpel was used to make a 1cm skin incision. A 5 fr peel-away sheath was advanced over the wir e and into the venous system. A measurement was then made using the existing wire and live fluoroscop ic guidance. The wire was then removed and trimmed. The PICC was advanced through the peel-away sheat h and into the venous system. The peel-away sheath was removed and the catheter was adhered to the pa tients arm with a stat lock. The catheter was then aspirated and flushed and a sterile bandage was pl aced over the access site. A fluoroscopic spot image was saved to PACS confirming the catheter tip w ithin the superior vena cava. IMPRESSION: SUCCESSFUL PLACEMENT OF A 5 FR DUAL LUMEN 44 CM PICC IN THE LEFT BASILIC VEIN. COMMENT: Patient medication list reviewed: Yes- Quality ID# [id number]:Eligible professional attests to doc umenting in the medical record they obtained, updated, or reviewed the patient's current medications. . Quality ID 145: Final reports for procedures using fluoroscopy that document radiation exposure jackelyn alannah, or exposure time and number of fluorographic images (if radiation exposure indices are not avail able) Quality ID #76: The patient was prepped and draped using maximum sterile barrier technique including cap, mask, sterile gown, sterile gloves, a large sterile sheet, hand hygiene, and 2% Chlorhexidine fo r cutaneous antisepsis. When ultrasound is used, sterile ultrasound techniques are followed requiring sterile gel and sterile probes. TECHNICAL DOCUMENTATION: JOB ID: [id number] [employer]- All Rights Reserved rev-07/16 Reading location - IP/workstation name: [email or web address]
[2018-09-05] MEDS: TAMSULOSIN HCL 0.4 MG CAP.SR.24H PO SCH (17:12)
[2018-09-05] MEDS ORDERED: NORMAL SALINE 10 ML SDV (AFTER EACH USE) IV PRN (18:00)
[2018-09-05] MEDS: SIMVASTATIN 10 MG TABLET PO SCH (21:52)
[2018-09-05] MEDS: TRAZODONE HCL 50 MG TABLET PO SCH (21:52)
[2018-09-05] MEDS: NORMAL SALINE 10 ML SDV (SCHEDULED) IV SCH (21:53)
[2018-09-06] MEDS: VANCOMYCIN HCL 1,000 MG in DEXTROSE 5%-WATER 250 ML IV SCH ×2 (05:18→16:02)
[2018-09-06] MEDS ORDERED: GABAPENTIN 400 MG CAPSULE ONE (05:31)
[2018-09-06] MEDS ORDERED: CEFTRIAXONE INJ 1000 MG VIAL ONE (05:39)
[2018-09-06] MEDS ORDERED: CEFTRIAXONE 1 GM/D5W RTU 1 GM/50 ML RTUPB IV ONE (05:40)
[2018-09-06 05:47] LABS: VANCOMYCIN,TROUGH 12.7 ug/mL (5.0-20.0)
[2018-09-06] MEDS: METHADONE HCL 10 MG TABLET PO SCH ×2 (06:18→13:29)
[2018-09-06] MEDS: GABAPENTIN 400 MG CAPSULE PO SCH ×3 (06:18→17:44)
[2018-09-06] MEDS: PANTOPRAZOLE SODIUM 40 MG TABLET.DR PO SCH (06:19)
[2018-09-06] MEDS: CEFTRIAXONE 2 GM/D5W RTU 2 GM/50 ML RTUPB IV SCH ×2 (06:27→17:43)
--- NOTE | 2018-09-06 07:09 | PDOC DISCHARGE SUMMARY ---
General - Admit/Disc Date/PCP Admission Date/Primary Care Provider: 09/04/18 04:28 CATRACHITO RG MD Discharge Date: 09/06/18 - Discharge Diagnosis (1) Surgical wound breakdown Is this a current diagnosis for this admission?: Yes - Additional Information Resuscitation Status: Full Code Home Medications: Albuterol Sulfate [Proair HFA] 1 puff PO Q4HP PRN 08/08/15 Baclofen [Baclofen 20 mg Tablet] 20 mg PO Q6HP PRN 08/08/15 Buspirone HCl 22.5 mg PO Q8 08/08/15 Furosemide 20 mg PO DAILY PRN 08/08/15 Gabapentin 800 mg PO Q6 08/08/15 Lisinopril 40 mg PO DAILY 08/08/15 Pantoprazole Sodium 40 mg PO DAILY 08/08/15 Sertraline HCl 200 mg PO DAILY 08/08/15 Simvastatin [Zocor 20 mg Tablet] 20 mg PO QHS 08/08/15 Tamsulosin HCl 0.4 mg PO DAILY 08/08/15 Trazodone HCl 300 mg PO QHS 08/08/15 Fluticasone/Vilanterol [Breo Ellipta 100-25 Mcg INH] 1 each IH DAILY 11/26/16 Meclizine HCl 12.5 mg PO DAILY PRN 11/26/16 Polyethylene Glycol 3350 [Miralax Powder 17 gm/Packet] 17 gm PO DAILY 11/26/16 Methadone HCl [Dolophine 10 mg Tablet] 5 mg PO Q8 MDD 25 MG 08/08/18 Oxycodone HCl/Acetaminophen [Percocet 10-325 mg Tablet] 1 each PO BIDP PRN 09/04/18 Prazosin HCl [Minipress] 4 mg PO QHS 09/04/18 Quetiapine Fumarate [Seroquel 100 mg Tablet] 100 mg PO DAILY 09/04/18 Quetiapine Fumarate [Seroquel] 500 mg PO QHS 09/04/18 History of Present Illness History of Present Illness: 58-year-old white male proximally 1 month status post right bimalleolar ankle fracture presents emergency room with swelling, erythema, drainage and abated inflammatory parameters. Hospital Course Hospital Course: Patient is admitted through the urgency room and was started empirically on a combination of Rocephin and vancomycin. There is dramatic improvement in the a ppearance of his wound and his discomfort.Patient had a PICC line placed Physical Exam Vital Signs: Temp Pulse Resp BP Pulse Ox 36.8 C 78 18 128/70 H 92 09/06/18 04:02 09/06/18 04:02 09/06/18 04:02 09/06/18 04:02 09/06/18 04:02 Intake & Output 09/05/18 09/06/18 09/07/18 06:59 06:59 06:59 Intake Total 2840 1644 Output Total 600 850 Balance 2240 794 Weight 110.5 kg 110.8 kg General appearance: PRESENT: no acute distress, mild distress Respiratory exam: PRESENT: unlabored Cardiovascular exam: PRESENT: RRR Pulses: PRESENT: +1 pedal pulses bilateral Vascular exam: PRESENT: normal capillary refill GI/Abdominal exam: PRESENT: soft Rectal exam: PRESENT: deferred Extremities exam: PRESENT: other - Right lower extremity erythema and induration are decreasing. Drainage has stopped. There is minimal tenderness to palpation. Distal neurovascular examination is intact. Neurological exam: PRESENT: alert, awake, oriented to person, oriented to place, oriented to time, oriented to situation. ABSENT: motor sensory deficit Psychiatric exam: PRESENT: appropriate affect, normal mood. ABSENT: homicidal ideation, suicidal ideation Skin exam: PRESENT: dry, intact, warm. ABSENT: cyanosis, rash Results Laboratory Results: 09/04/18 01:25 09/04/18 01:25 Impressions: Tibia/Fibula X-Ray 09/04/18 02:33 IMPRESSION: Postsurgical changes involving the distal fibula and medial malleolus with no evidence of hardware complication. No definite findings of osteomyelitis. copyright 2011 [employer]- All Rights Reserved Guidance Fluoroscopy 09/05/18 00:00 IMPRESSION: SUCCESSFUL PLACEMENT OF A 5 FR DUAL LUMEN 44 CM PICC IN THE LEFT BASILIC VEIN. Interventional Vascular Procedure 09/05/18 00:00 IMPRESSION: SUCCESSFUL PLACEMENT OF A 5 FR DUAL LUMEN 44 CM PICC IN THE LEFT B ASILIC VEIN. PICC Line Insertion 09/05/18 13:39 IMPRESSION: SUCCESSFUL PLACEMENT OF A 5 FR DUAL LUMEN 44 CM PICC IN THE LEFT BASILIC VEIN. Status: Imported from PACS Qualifiers - * PATIENT BEING DISCHARGED WITH ANY OF THE FOLLOWING DIAGNOSIS: No VTE patient discharged on overlapping Therapy?: No Reason(s) for not prescribing Overlap Therapy:: Not indicated Acute Heart Failure - Is this a Heart Failure Patient?: No Plan Discharge Plan: Patient to be discharged home with home health intermediate health physical therapy. Patient to be administered 2 g of IV Rocephin every 24 hours for 14 days. Follow-up with Dr. Morales and [facility] for surgery in 2 weeks for reevaluation. Patient remained touchdown weightbearing in the cam walker until that time. Time Spent: Less than 30 Minutes
[2018-09-06] MEDS: HYDROCODONE/ACETAMINOPHEN 5-325 MG TABLET PO PRN (09:00)
[2018-09-06] MEDS: BUSPIRONE HCL 10 MG TABLET PO SCH ×3 (09:00→17:44)
[2018-09-06] MEDS: QUETIAPINE FUMARATE 100 MG TABLET PO SCH (09:01)
[2018-09-06] MEDS: BACLOFEN 20 MG TABLET PO SCH ×3 (09:01→17:44)
[2018-09-06] MEDS: LISINOPRIL 10 MG TABLET PO SCH (09:01)
[2018-09-06] MEDS: FLUTICASONE/VILANTEROL 100-25 MCG/DOSE IH SCH (09:02)
[2018-09-06] MEDS: POLYETHYLENE GLYCOL 3350 POWDER 17 GM/1 PACKET PO SCH (09:02)
[2018-09-06] MEDS: NORMAL SALINE 10 ML SDV (SCHEDULED) IV SCH (09:08)
[2018-09-06] MEDS: ALBUTEROL SULFATE 0.083% NEB 2.5 MG/3 ML AMPUL NEB SCH (10:00)
[2018-09-06] MEDS: SERTRALINE HCL 50 MG TABLET PO SCH (11:03)
[2018-09-06] MEDS: OXYCODONE HCL IR 5 MG TABLET PO PRN (16:16)
[2018-09-06 16:34] VITALS: BP 132/78
[2018-09-06] MEDS: TAMSULOSIN HCL 0.4 MG CAP.SR.24H PO SCH (17:44)
== END 2018-09-06 19:22 | disposition home or self-care (01) ==
LOC: ER 00:11 → INTOOBSV 04:28 → EH 04:28 → 4S 15:21 → 2N 09-06 00:50
PROVIDERS: ADMIT Orthopaedic Surgery; ATTEND Orthopaedic Surgery
PROC: 02HV33Z Insertion of Infusion Device into Superior Vena Cava, Percutaneous Approach (ICD-10-PCS; principal; 2018-09-05)
DX: T81.41XA Infection following a procedure, superficial incisional surgical site, initial encounter (principal); T81.31XA Disruption of external operation (surgical) wound, not elsewhere classified, initial encounter; L03.115 Cellulitis of right lower limb; Y83.9 Surgical procedure, unspecified as the cause of abnormal reaction of the patient, or of later complication, without mention of misadventure at the time of the procedure; L97.919 Non-pressure chronic ulcer of unspecified part of right lower leg with unspecified severity; I25.10 Atherosclerotic heart disease of native coronary artery without angina pectoris; F17.210 Nicotine dependence, cigarettes, uncomplicated; E78.5 Hyperlipidemia, unspecified; I10 Essential (primary) hypertension; J44.9 Chronic obstructive pulmonary disease, unspecified; Z86.19 Personal history of other infectious and parasitic diseases; Z90.49 Acquired absence of other specified parts of digestive tract; Z79.899 Other long term (current) drug therapy
CPT/HCPCS: 99285; 36415 ×2; 87040; 83605 ×2; 85025; 85652; 85610; 85730; 86140; 80053; 80202; 73590; 36569; 77001; 76937; 94640 ×2; G0378 ×3; C1769; A9270 ×34; J3490 ×7; J0696 ×4; J7060 ×3; J7030; J3370 ×3; J1642 ×2; J2543

== ENCOUNTER 2018-11-17 03:48 | Emergency (ER) | payer MEDICARE ==
[2018-11-17 06:01] LABS: ABSOLUTE BASOPHILS # (AUTO) 0.1 10^3/uL (0.0-0.2); ABSOLUTE EOSINOPHILS # (AUTO) 0.6 10^3/uL (0.0-0.6); ABSOLUTE LYMPHOCYTES (AUTO) 2.5 10^3/uL (0.5-4.7); ABSOLUTE MONOCYTES (AUTO) 0.6 10^3/uL (0.1-1.4); ABSOLUTE NEUT (AUTO) 2.8 10^3/uL (1.7-8.2); BASOPHILS % (AUTO) 0.9 % (0-2); EOSINOPHILS % (AUTO) 8.8 % (0-6); HEMATOCRIT 36.7 % (37.9-51.0); HEMOGLOBIN 12.3 g/dL (13.5-17.0); LYMPHOCYTES % (AUTO) 38.2 % (13-45); MEAN CORPUSCULAR HEMOGLOBIN 29.5 pg (27.0-33.4); MEAN CORPUSCULAR HGB CONC 33.6 g/dL (32.0-36.0); MEAN CORPUSCULAR VOLUME 88 fl (80-97); MONOCYTES % (AUTO) 8.8 % (3-13); PLATELET COUNT 261 10^3/uL (150-450); RED BLOOD COUNT 4.18 10^6/uL (4.35-5.55); RED CELL DISTRIBUTION WIDTH 15.2 % (11.5-14.0); SEGMENTED NEUTROPHILS % (AUTO) 43.3 % (42-78); TOTAL CELLS COUNTED % (AUTO) 100 %; WHITE BLOOD COUNT 6.5 10^3/uL (4.0-10.5)
[2018-11-17 06:20] LABS: ALBUMIN 3.9 g/dL (3.5-5.0); ALKALINE PHOSPHATASE 96 U/L (38-126); ANION GAP 7 (5-19); ASPARTATE AMINO TRANSFERASE 32 U/L (17-59); BILIRUBIN,DIRECT 0.3 mg/dL (0.0-0.4); BILIRUBIN,TOTAL 0.3 mg/dL (0.2-1.3); BLOOD UREA NITROGEN 32 mg/dL (7-20); CALCIUM 9.4 mg/dL (8.4-10.2); CARBON DIOXIDE 27 mmol/L (22-30); CHLORIDE 108 mmol/L (98-107); GLUCOSE 117 mg/dL (75-110); POTASSIUM 3.8 mmol/L (3.6-5.0); TOTAL PROTEIN 6.8 g/dL (6.3-8.2)
[2018-11-17 06:23] LABS: INTERNATIONAL RATION (INR) 1.08; PARTIAL THROMBOPLASTIN TIME 28.4 SEC (23.5-35.8)
[2018-11-17 06:31] LABS: CREATINE KINASE MB 1.71 ng/mL (<4.55); TROPONIN I < 0.012 ng/mL
--- NOTE | 2018-11-17 06:32 | ER Document Report ---
HPI - HPI Patient complains to provider of: right ankle infection, sacral decubitus bed sore, dizziness, vomiting Time Seen by Provider: 11/17/18 05:11 Onset/Duration: Gradual, Worse Quality of pain: Achy Severity: Moderate Pain Level: 3 Context: 58-year-old male with the listed past medical history here for concern of a another recurring infection in his hardware to his right ankle for the last several days. He sustained a right bimalleolar fracture in July 2018. He follows with orthopedist, Dr. Morales, and has been on many antibiotics several times since surgery for concern of infected hardware. Hardware has never been removed however the patient has been on weeks of antibiotics and even had a PICC line-not currently. He states the area did improve up until about the last week when he noticed some increasing redness, pain, swelling and purulent drainage. He denies any fever. The at bedside states 2 weeks ago he appeared like he "had a stroke" as he was not making any sense when he was talking for about a day or 2 but refused to go to the ER then. He refused to be evaluated at all then per at bedside until now. She states the symptoms eventually returned back to baseline up until about 4 days ago when they started recurring again and he started "talking out of his head" and appearing altered per . she states sx come and go now and are improved however. She denies any fall or trauma. No history of this before. He is able to walk minimally at baseline-this is unchanged due to pain and chronic debilitation. He does also complain of a sacral bedsore that is worsening secondary to him being more immobile. He also complains of having several episodes of nonbloody nonbilious emesis a couple days ago and has felt intermittently dizzy since; however vomiting has resolved but feels he may still be a little dehydrated now causing those sx despite tolerating po now. Again he has had no fall or trauma and not hit his head. No LOC. No diarrhea. No stomach pain. No UTI symptoms. No rash otherwise. He is not a diabetic. He was last on Bactrim about 3 weeks ago-his most recent abx. They have follow-up November [address] Morales. No numbness, tingling, weakness, saddle anesthesia, incontinence, or any other symptoms. Patient states he has quit smoking over the last few weeks. He is not on home oxygen. No recent steroids. No other immunocompromising drugs. No other complaints at this time. Associated Symptoms: denies: Chest pain, Fever, Headache, Shortness of breath Exacerbated by: Movement Relieved by: Remaining still Similar symptoms previously: Yes Recently seen / treated by doctor: No - ROS Systems Reviewed and Negative: Yes All other systems reviewed and negative - To include 10 systems, unless mentioned in the hpi. Past Medical History - General Information source: Patient, Relative - - Social History Smoking Status: Former Smoker Chew tobacco use (# tins/day): No Frequency of alcohol use: None Drug Abuse: Prescription drugs - Chronic narcotic pain medicine Lives with: Spouse/Significant other Family History: Reviewed & Not Pertinent Patient has suicidal ideation: No Patient has homicidal ideation: No - Past Medical History Cardiac Medical History: Reports: Hx Coronary Artery Disease, Hx Hypercholesterolemia, Hx Hypertension - controlled on meds Denies: Hx Heart Attack Pulmonary Medical History: Reports: Hx COPD - not on home O2, Hx Sleep Apnea - not compliant with cpap Denies: Hx Asthma, Hx Bronchitis, Hx Pneumonia Neurological Medical History: Denies: Hx Cerebrovascular Accident, Hx Seizures Endocrine Medical History: Denies: Hx Diabetes Mellitus Type 1, Hx Diabetes Mellitus Type 2 Renal/ Medical History: Denies: Hx End Stage Renal Disease, Hx Hemodialysis, Hx Peritoneal Dialysis GI Medical History: Reports: Hx Hepatitis - HEP C/REMISSION. Denies: Hx Hiatal Hernia, Hx Ulcer Musculoskeletal Medical History: Reports Hx Arthritis, Reports Hx Musculoskeletal Trauma Skin Medical History: Reports Hx Cellulitis - chronic nonhealing right ankle fx/wound, Reports Other - chronic sacral decubitus ulcer Psychiatric Medical History: Reports: Hx Depression Traumatic Medical History: Reports: Hx Fractures - right jorge fx repaired w/hardware 07/[address] morales Infectious Medical History: Reports: Hx Hepatitis - HEP C/REMISSION Past Surgical History: Reports: Hx Cholecystectomy, Hx Neurologic Surgery - back, Hx Orthopedic Surgery - ORIF right bimalleolar ankle fracture, 08/10/2018. Denies: Hx Open Heart Surgery, Hx Pacemaker - Immunizations Immunizations up to date: Yes Hx Diphtheria, Pertussis, Tetanus Vaccination: Yes Vertical Provider Document - CONSTITUTIONAL Agree With Documented VS: Yes Exam Limitations: No Limitations General Appearance: No Apparent Distress Notes: >>>> PHYSICAL_EXAM: GENERAL_APPEARANCE: well_nourished, alert, cooperative, no_acute_distress, no_obvious_discomfort. pleasant, obese middle-aged white male who appears slightly older than stated age, somewhat bizarre affect, smiling, speaking in full sentences, in no sign of pain or resp distress, at bedside who provides most of the hx as pt seems agitated to be questioned VITALS: reviewed, see vital signs table. HEAD: no_swelling\\tenderness on the head. normocephalic. atraumatic. no jaeger signs. no raccoons eyes. EYES: PERRL, EOMI, conjunctiva_clear. NOSE: no_nasal_discharge. MOUTH: (-)decreased moisture. THROAT: no_tonsilar_inflammation, no thrush, no_airway_obstruction. no_l ymphadenopathy NECK: supple, no_neck_tenderness, full rom. full strength. no meningeal signs. BACK: no_back_tenderness. CHEST_WALL: no_chest_tenderness. no overlying skin changes LUNGS: scant exp wheezes, ctab (-)accessory muscle use, good air exchange bilateral. HEART: normal_rate, normal_rhythm, ABDOMEN: normal_BS, soft, no_abd_tenderness, (-)guarding, (-)rebound, obese abd, exam somewhat limited secondary to pts body habitus, no distension or peritoneal signs. no cva ttp RECTAL: internal exam deferred however there is a grade 1-2 sacral decubitus ulcer perirectally approx 10 cm in diameter EXTREMITIES: strength 5/5 in all_extremities, good pulses in all_extremities, no_swelling\\tenderness in the extremities other than over medial and lateral right distal ankle over pts prior incisions where there appears to be some mild surrounding erythema, swelling, and scant purulent drainage with mild wound/incision dehiscence laterally, no bleeding or streaking, no other_edem a/ttp/erythema. full rom. slight antalgic gait secondary to pain as pt is minimally ambulatory at baseline, good pulses. brisk cap refill. good hand music coordinator. neg addie sign. no sign of gout. no sign of septic jt. no foot drop. neg sadler squeeze. normal temp to touch. NEURO: motor and sensation intact, cranial nerves 2-12 intact, cerebellar fxn intact SKIN: warm, dry, good_color, no_rash. MENTAL_STATUS: speech_clear, oriented_X_3, normal_affect, responds_appropriately to questions. - INFECTION CONTROL TRAVEL OUTSIDE OF THE [place] IN LAST 30 DAYS: No Course - Re-evaluation Re-evalutation: 11/17/18 08:20 Pt here for multiple complaints to include mostly a concern for a postop infect ion of his hardware in his right distal tib and fibula for the last several days with some increased pain, redness, swelling, and drainage. He has had multiple postop infections here since his initial surgery in July done by Dr. Morales. has been on multiple antibiotics. He was recently on Bactrim about 3 weeks ago for this. He states a few days ago he had several episodes of nonbloody nonbilious vomiting and has felt dehydrated and dizzy then which is improving since he has been able to tolerate po. His states he hasn't been acting himself and has appeared a bit off intermittently for the last few weeks. he is also noncompliant with his cpap chronically-worse recently. No fall or trauma. They have not followed up with his primary care doctor or their orthopedic surgeon. No fever. he is not diabetic. No change in neurologic. No one-sided weakness, facial droop, or slurred speech. Denies intoxication. His labs were unremarkable other than a mildly elevated sed rate and CRP and ck. He had a normal white count and lactic acid. His creatinine was slightly increased from his baseline however he has been higher in the past. he was uds pos for methadone. He was orthostatic. He was given fluids, orthostasis resolved. Blood and wound cultures are pending. he is non toxic in appearance. CT brain was negative per radiology and reviewed by myself. His right ankle x-ray showed no acute abnormality however radiologist did recommend a nuclear medicine bone scan to definitively rule out osteomyelitis and was otherwise negative per radiology and reviewed by myself. Chest x-ray was negative per radiology and reviewed by myself. Patient informed of his findings. He improved with treatment here. Secondary to this being a recurrence of postop infection I did have the granular operator page the patient's surgeon, Dr. Morales, at 8 AM however the granular operator informed me she had to leave a voicemail as he did not answer his phone. at 830am i did have the granular operator page coagulation operator ortho dr ley about the pt and granular operator stated she had to page dr ley and he would call me back. at approx 8:45a, dr morales did graciously return my phone call, as i was informed by my lead ZANA, that he prefers to be called even when he isn't coagulation operator in regards to his pts, and after reviewing the pt with him, he advised no further workup was indicated at this time and pt stable for dc home on po bactrim and close f/u with him in a day or two. pt informed of this and understanding and in agreement with tx plan. also of note, around 8:55a, dr ley, coagulation operator ortho, did return my call graciously, and i informed him i had already spoken to dr morales in regards to the pt-since it was dr morales's pt initially, and he was understanding and thanked me and the call/consult was terminated. will dc with bactrim. he can cont to take his chronic pain meds for pain he has at home. advised wound care. advised sx care. Pt advised to f/u with dr morales in 1-2 days or return to the ed with any worsening sx. pt and understand and agree to plan. vss. afebrile. well appearing. satting well on ra. neurononfocal. On reexam, pt improved with tx listed. remained stable. nontoxic. well appearin g. pain controlled. neurononfocal. chronically debilitated but not toxic in appearance case discussed with ER Attending, Dr. vallejo, who directed and agrees with plan of care and advised no further workup indicated at this time and to follow dr morales's recommendations. Documentation achieved through voice recording which may lead to some occasional accidental typographical errors. Extensive efforts have been made to proof read documentation to make sure these are the least as possible. Category Date Time Status Orthostatic Vital Sign (ED) NOW Care 11/17/18 05:20 Active ANKLE RIGHT COMPLETE [RAD] Stat Exams 11/17/18 05:22 Completed CHEST 2 VIEWS [RAD] Stat Exams 11/17/18 05:[address] HEAD WITHOUT [CT] Stat Exams 11/17/18 05:57 Completed BLOOD CULTURE [MC] Stat Lab 11/17/18 06:45 Received CBC WITH DIFF [HEME] Stat Lab 11/17/18 05:30 Completed COMPREHENSIVE METABOLIC PANEL [CHEM] Stat Lab 11/17/18 05:30 Completed CREATINE KINASE MB [CHEM] Stat Lab 11/17/18 05:30 Completed CREATINE KINASE [CHEM] Stat Lab 11/17/18 05:30 Completed CRP [C-REACTIVE PROTEIN] [CHEM] Stat Lab 11/17/18 05:30 Completed LACTIC ACID SEPSIS [CHEM] Stat Lab 11/17/18 05:30 Completed LIPASE [CHEM] Stat Lab 11/17/18 05:30 Completed MAGNESIUM [CHEM] Stat Lab 11/17/18 05:30 Completed PARTIAL THROMBOPLASTIN TIME [COAG] Stat Lab 11/17/18 05:30 Completed PROTHROMBIN TIME/INR [COAG] Stat Lab 11/17/18 05:30 Completed Sed Rate [ERYTHROCYTE SEDIMENTATION RATE] [HEME] Stat Lab 11/17/18 05:30 Completed TROPONIN I [CHEM] Stat Lab 11/17/18 05:30 Completed URINALYSIS [URIN] Stat Lab 11/17/18 05:30 Completed URINE DRUG SCREEN [CHEM] Stat Lab 11/17/18 05:30 Completed WOUND CULTURE + GRAM STAIN [MC] Stat Lab 11/17/18 05:30 Received Normal Saline 1000 ml [NaCl 0.9% 1000 ml IV Soln] 1,000 Med 11/17/18 07:49 Ordered ml IV BOLUS 11/17/18 08:34 - Vital Signs Vital signs: Temp Pulse Resp BP Pulse Ox 97.1 F 85 13 129/77 H 93 11/17/18 03:56 11/17/18 03:56 11/17/18 05:31 11/17/18 05:31 11/17/18 05:31 11/17/18 08:30 BP BP BP BP Pulse Ox 11/17/18 09:01 95 11/17/18 08:34 98 11/17/18 08:33 93 11/17/18 08:32 93 11/17/18 08:03 96 11/17/18 07:45 112/77 87/71 L 112/78 11/17/18 07:43 99 11/17/18 07:42 92 11/17/18 07:41 11/17/18 07:38 93 11/17/18 07:37 11/17/18 07:31 94 11/17/18 07:30 92 11/17/18 07:15 96 11/17/18 07:14 11/17/18 07:00 91 L 11/17/18 06:02 91 L 11/17/18 06:01 11/17/18 06:00 91 L 11/17/18 05:31 93 11/17/18 05:30 91 L 11/17/18 05:02 11/17/18 05:01 11/17/18 05:00 11/17/18 04:47 92 11/17/18 04:46 92 11/17/18 04:45 11/17/18 04:44 94 11/17/18 03:56 167/91 H 97 - Laboratory Result Diagrams: 11/17/18 05:30 11/17/18 05:30 Laboratory results interpreted by me: 11/17/18 11/17/18 11/17/18 05:30 05:30 05:30 RBC 4.18 L Hgb 12.3 L Hct 36.7 L RDW 15.2 H Eos % (Auto) 8.8 H Chloride 108 H BUN 32 H Creatinine 1.26 H Est GFR (MDRD) Non-Af 59 L Glucose 117 H Creatine Kinase 666 H 11/17/18 08:30 Labs- Entire Visit 11/17/18 11/17/18 11/17/18 05:30 05:30 05:30 WBC 6.5 RBC 4.18 L Hgb 12.3 L Hct 36.7 L MCV 88 MCH 29.5 MCHC 33.6 RDW 15.2 H Plt Count 261 Lymph % (Auto) 38.2 Nelson % (Auto) 8.8 Eos % (Auto) 8.8 H Baso % (Auto) 0.9 Absolute Neuts (auto) 2.8 Absolute Lymphs (auto) 2.5 Absolute Monos (auto) 0.6 Absolute Eos (auto) 0.6 Absolute Basos (auto) 0.1 Seg Neutrophils % 43.3 ESR PT INR APTT Sodium 142.3 Potassium 3.8 Chloride 108 H Carbon Dioxide 27 Anion Gap 7 BUN 32 H Creatinine 1.26 H Est GFR ( Amer) > 60 Est GFR (MDRD) Non-Af 59 L Glucose 117 H Lactic Acid 1.1 Calcium 9.4 Magnesium Total Bilirubin 0.3 Direct Bilirubin 0.3 Neonat Total Bilirubin Not Reportable Neonat Direct Bilirubin Not Reportable Neonat Indirect Bili Not Reportable AST 32 ALT 16 Alkaline Phosphatase 96 Creatine Kinase CK-MB (CK-2) Troponin I C-Reactive Protein Total Protein 6.8 Albumin 3.9 Lipase Urine Color Urine Appearance Urine pH Ur Specific [place] Urine Protein Urine Glucose (UA) Urine Ketones Urine Blood Urine Nitrite Urine Bilirubin Urine Urobilinogen Ur Leukocyte Esterase Urine WBC (Auto) Urine RBC (Auto) U Hyaline Cast (Auto) Urine Mucus (Auto) Urine Ascorbic Acid Urine Opiates Screen Urine Methadone Screen Ur Barbiturates Screen Ur Phencyclidine Scrn Ur Amphetamines Screen U Benzodiazepines Scrn Urine Cocaine Screen U Marijuana (THC) Screen 11/17/18 11/17/18 11/17/18 05:30 05:30 05:30 WBC RBC Hgb Hct MCV MCH MCHC RDW Plt Count Lymph % (Auto) Nelson % (Auto) Eos % (Auto) Baso % (Auto) Absolute Neuts (auto) Absolute Lymphs (auto) Absolute Monos (auto) Absolute Eos (auto) Absolute Basos (auto) Seg Neutrophils % ESR PT 14.0 INR 1.08 APTT 28.4 Sodium Potassium Chloride Carbon Dioxide Anion Gap BUN Creatinine Est GFR ( Amer) Est GFR (MDRD) Non-Af Glucose Lactic Acid Calcium Magnesium 2.0 Total Bilirubin Direct Bilirubin Neonat Total Bilirubin Neonat Direct Bilirubin Neonat Indirect Bili AST ALT Alkaline Phosphatase Creatine Kinase 666 H CK-MB (CK-2) 1.71 Troponin I < 0.012 C-Reactive Protein Total Protein Albumin Lipase 291.7 Urine Color Urine Appearance Urine pH Ur Specific [place] Urine Protein Urine Glucose (UA) Urine Ketones Urine Blood Urine Nitrite Urine Bilirubin Urine Urobilinogen Ur Leukocyte Esterase Urine WBC (Auto) Urine RBC (Auto) U Hyaline Cast (Auto) Urine Mucus (Auto) Urine Ascorbic Acid Urine Opiates Screen Urine Methadone Screen Ur Barbiturates Screen Ur Phencyclidine Scrn Ur Amphetamines Screen U Benzodiazepines Scrn Urine Cocaine Screen U Marijuana (THC) Screen 11/17/18 11/17/18 11/17/18 05:30 05:30 05:30 WBC RBC Hgb Hct MCV MCH MCHC RDW Plt Count Lymph % (Auto) Nelson % (Auto) Eos % (Auto) Baso % (Auto) Absolute Neuts (auto) Absolute Lymphs (auto) Absolute Monos (auto) Absolute Eos (auto) Absolute Basos (auto) Seg Neutrophils % ESR 23 H PT INR APTT Sodium Potassium Chloride Carbon Dioxide Anion Gap BUN Creatinine Est GFR ( Amer) Est GFR (MDRD) Non-Af Glucose Lactic Acid Calcium Magnesium Total Bilirubin Direct Bilirubin Neonat Total Bilirubin Neonat Direct Bilirubin Neonat Indirect Bili AST ALT Alkaline Phosphatase Creatine Kinase CK-MB (CK-2) Troponin I C-Reactive Protein Total Protein Albumin Lipase Urine Color YELLOW Urine Appearance CLEAR Urine pH 5.0 Ur Specific [place] 1.020 Urine Protein NEGATIVE Urine Glucose (UA) NEGATIVE Urine Ketones NEGATIVE Urine Blood NEGATIVE Urine Nitrite NEGATIVE Urine Bilirubin NEGATIVE Urine Urobilinogen NEGATIVE Ur Leukocyte Esterase NEGATIVE Urine WBC (Auto) 1 Urine RBC (Auto) 1 U Hyaline Cast (Auto) 7 Urine Mucus (Auto) OCC Urine Ascorbic Acid NEGATIVE Urine Opiates Screen NEGATIVE Urine Methadone Screen UNCONFIRMED POSITIVE Ur Barbiturates Screen NEGATIVE Ur Phencyclidine Scrn NEGATIVE Ur Amphetamines Screen NEGATIVE U Benzodiazepines Scrn NEGATIVE Urine Cocaine Screen NEGATIVE U Marijuana (THC) Screen NEGATIVE 11/17/18 05:30 WBC RBC Hgb Hct MCV MCH MCHC RDW Plt Count Lymph % (Auto) Nelson % (Auto) Eos % (Auto) Baso % (Auto) Absolute Neuts (auto) Absolute Lymphs (auto) Absolute Monos (auto) Absolute Eos (auto) Absolute Basos (auto) Seg Neutrophils % ESR PT INR APTT Sodium Potassium Chloride Carbon Dioxide Anion Gap BUN Creatinine Est GFR ( Amer) Est GFR (MDRD) Non-Af Glucose Lactic Acid Calcium Magnesium Total Bilirubin Direct Bilirubin Neonat Total Bilirubin Neonat Direct Bilirubin Neonat Indirect Bili AST ALT Alkaline Phosphatase Creatine Kinase CK-MB (CK-2) Troponin I C-Reactive Protein 11.0 H Total Protein Albumin Lipase Urine Color Urine Appearance Urine pH Ur Specific [place] Urine Protein Urine Glucose (UA) Urine Ketones Urine Blood Urine Nitrite Urine Bilirubin Urine Urobilinogen Ur Leukocyte Esterase Urine WBC (Auto) Urine RBC (Auto) U Hyaline Cast (Auto) Urine Mucus (Auto) Urine Ascorbic Acid Urine Opiates Screen Urine Methadone Screen Ur Barbiturates Screen Ur Phencyclidine Scrn Ur Amphetamines Screen U Benzodiazepines Scrn Urine Cocaine Screen U Marijuana (THC) Screen - Diagnostic Test Radiology reviewed: Image reviewed, Reports reviewed Radiology results interpreted by me: 11/17/18 08:30 Chest X-Ray 11/17/18 05:21 IMPRESSION: 1. No acute pulmonary process identified. Ankle X-Ray 11/17/18 05:22 IMPRESSION: 1. No hardware abnormality identified. No lytic osseous lesions identified to suggest osteomyelitis. If there is continued concern for osteomyelitis/hardware infection correlation with nuclear medicine bone scan and possible white blood cell scan may be helpful. copyright 2010 [email or web address]- All Rights Reserved Head CT 11/17/18 05:57 IMPRESSION: No acute intracranial findings. Discharge - Discharge Clinical Impression: Orthostatic hypotension, Acute kidney injury, Dehydration, History of vomiting Post op infection Qualifiers: Encounter type: subsequent encounter Postoperative infection type: unspecified type Qualified Code(s): T81.40XD - Infection following a procedure, unspecified, subsequent encounter Bimalleolar ankle fracture Qualifiers: Encounter type: subsequent encounter Fracture type: closed Laterality: right Fracture healing: with delayed healing Qualified Code(s): S82.841G - Displaced bimalleolar fracture of right lower leg, subsequent encounter for closed fracture with delayed healing Condition: Stable Disposition: HOME, SELF-CARE Instructions: Cellulitis ([facility]) Additional Instructions: Follow-up with ortho in 1 to 2 days. Return for any worsening symptoms. continue to take your pain meds for pain. take the medication as prescribed. keep the area clean and dry. elevate and rest the area Prescriptions: Sulfamethoxazole/Trimethoprim [Bactrim Ds Tablet] 1 each PO BID #20 tablet Referrals: CATRACHITO RG MD [Primary Care Provider] - Follow up as needed RIK MORALES MD [ACTIVE STAFF] - Follow up in 3-5 days
[2018-11-17 06:41] LABS: APPEARANCE,URINE CLEAR; BILIRUBIN,URINE NEGATIVE (NEGATIVE); COLOR,URINE YELLOW; GLUCOSE, URINE NEGATIVE (NEGATIVE); KETONES,URINE NEGATIVE (NEGATIVE); LEUKOCYTE ESTERASE,URINE NEGATIVE (NEGATIVE); NITRITE,URINE NEGATIVE (NEGATIVE); PROTEIN,URINE NEGATIVE (NEGATIVE); UROBILINOGEN,URINE NEGATIVE mg/dL (<2.0)
[2018-11-17 06:53] LABS: URINE AMPHETAMINES SCREEN NEGATIVE; URINE BARBITURATES SCREEN NEGATIVE; URINE BENZODIAZEPINES SCREEN NEGATIVE; URINE COCAINE SCREEN NEGATIVE; URINE MARIJUANA (THC) SCREEN NEGATIVE; URINE METHADONE SCREEN UNCONFIRMED POSITIVE; URINE PHENCYCLIDINE SCREEN NEGATIVE
--- NOTE | 2018-11-17 06:56 | RADIOLOGY REPORT (SQ) ---
CLINICAL HISTORY: dizziness COMPARISON: None. TECHNIQUE: CT HEAD WITHOUT IV CONTRAST on 11/17/2018 5:57 AM CDT This exam was performed according to our departmental dose-optimization program, which includes automated exposure control, adjustment of the mA and/or kV according to patient size and/or use of iterative reconstruction technique. FINDINGS: There is no acute hemorrhage, mass effect or midline shift. Pickard-white differentiation is preserved. There is no hydrocephalus. There is no significant volume loss for age. There are mild patchy hypodensities within the periventricular and subcortical white matter, consistent with microangiopathic ischemic changes. The calvarium is intact. Orbits and globes are unremarkable. The paranasal sinuses are clear. Mastoid air cells are clear. IMPRESSION: No acute intracranial findings.
--- NOTE | 2018-11-17 07:48 | RADIOLOGY REPORT (SQ) ---
EXAM DESCRIPTION: XR ANKLE 3 OR MORE VIEWS COMPLETED DATE/TME: 11/17/2018 05:22 CLINICAL HISTORY: 58 years, Male, infection. post op COMPARISON: 08/10/2018 FINDINGS: Lateral plate and screw fixation of fibula. Screw fixation of the medial malleolus. No lytic osseous lesions or hardware lucency identified. Degenerative change of the ankle. No acute fracture identified. Mild soft tissue edema. IMPRESSION: 1. No hardware abnormality identified. No lytic osseous lesions identified to suggest osteomyelitis. If there is continued concern for osteomyelitis/hardware infection correlation with nuclear medicine bone scan and possible white blood cell scan may be helpful. copyright 2010 [employer]- All Rights Reserved
[2018-11-17] MEDS ORDERED: NORMAL SALINE 1000 ML 1,000 ML IV ONE (07:49)
--- NOTE | 2018-11-17 07:49 | RADIOLOGY REPORT (SQ) ---
EXAM DESCRIPTION: XR CHEST 2 VIEWS COMPLETED DATE/TME: 11/17/2018 05:21 CLINICAL HISTORY: dizziness COMPARISON: None. FINDINGS: Frontal and lateral views of the chest. Cardiomediastinal silhouette: Atherosclerotic calcification thoracic aorta. Lungs: No consolidation, pneumothorax, or pleural effusion. Bones: Degenerative change of the spine. Leads overlie the chest. Upper abdomen: No abnormality identified. IMPRESSION: 1. No acute pulmonary process identified.
[2018-11-17] MEDS ORDERED: SULFAMETHOXAZOLE/TRIMETHOPRIM 800-160 MG TABLET PO ONE (08:41)
[2018-11-17 09:05] VITALS: BP 114/69
== END 2018-11-17 09:22 | disposition home or self-care (01) ==
LOC: ER 03:48
DX: T81.40XA Infection following a procedure, unspecified, initial encounter (principal); Y83.8 Other surgical procedures as the cause of abnormal reaction of the patient, or of later complication, without mention of misadventure at the time of the procedure; S82.841G Displaced bimalleolar fracture of right lower leg, subsequent encounter for closed fracture with delayed healing; X58.XXXD Exposure to other specified factors, subsequent encounter; I95.1 Orthostatic hypotension; E86.0 Dehydration; N17.9 Acute kidney failure, unspecified; L89.159 Pressure ulcer of sacral region, unspecified stage; R42 Dizziness and giddiness; I25.10 Atherosclerotic heart disease of native coronary artery without angina pectoris; I10 Essential (primary) hypertension; J44.9 Chronic obstructive pulmonary disease, unspecified; F19.10 Other psychoactive substance abuse, uncomplicated; E66.9 Obesity, unspecified; G47.30 Sleep apnea, unspecified; Z91.19 Patient's noncompliance with other medical treatment and regimen; Z87.891 Personal history of nicotine dependence; Z79.899 Other long term (current) drug therapy
CPT/HCPCS: 99284; 96360; 36415; 87040; 87070; 87205; 82553; 82550; 83690; 83735; 85025; 85652; 85610; 85730; 86140; 87077; 80053; 81001; 84484; 87186; 80307; 83605; 73610; 71046; 70450; A9270; J7030

== ENCOUNTER 2018-12-16 18:02 | Emergency (ER) | payer MEDICARE ==
--- NOTE | 2018-12-16 18:39 | ER Document Report ---
ED Medical Screen (RME) - General Chief Complaint: Incision Problem Stated Complaint: INFECTED INCISION Time Seen by Provider: 12/16/18 18:35 Primary Care Provider: CATRACHITO RG MD [Primary Care Provider] - Follow up as needed Mode of Arrival: Ambulatory Information source: Patient Notes: 58-year-old male presented to ED for complaint of infected incision to the right lower leg. He states he had plates and screws placed for a fractured ankle in July of this year. He states this is his fourth infection to the area and it is never healed up since the surgery to place the plates and screws. states that he is scheduled to have the plates and screws removed and new plates and screws placed if necessary 28 December. Patient has a history of COPD. He states he did have a blood infection and in 2011 but does not remember what kind of infection it was. It was from an abscess on his spine. Was living in [place] at the time. I have greeted and performed a rapid initial assessment of this patient. A comprehensive ED assessment and evaluation of the patient, analysis of test results and completion of medical decision making process will be conducted by an additional ED providers. TRAVEL OUTSIDE OF THE [place] IN LAST 30 DAYS: No - Related Data Allergies/Adverse Reactions: codeine [Codeine] Allergy (Verified 09/04/18 00:43) N/V/D, hives latex Allergy (Verified 09/04/18 00:43) Blisters, takes skin off pregabalin [From Lyrica] Allergy (Verified 09/04/18 00:43) Generalized edema Past Medical History - Past Medical History Cardiac Medical History: Reports: Hx Coronary Artery Disease, Hx Hypercholesterolemia, Hx Hypertension - controlled on meds Denies: Hx Heart Attack Pulmonary Medical History: Reports: Hx COPD - not on home O2, Hx Sleep Apnea - not compliant with cpap Denies: Hx Asthma, Hx Bronchitis, Hx Pneumonia Neurological Medical History: Denies: Hx Cerebrovascular Accident, Hx Seizures Endocrine Medical History: Denies: Hx Diabetes Mellitus Type 1, Hx Diabetes Mellitus Type 2 Renal/ Medical History: Denies: Hx End Stage Renal Disease, Hx Hemodialysis, Hx Peritoneal Dialysis GI Medical History: Reports: Hx Hepatitis - HEP C/REMISSION. Denies: Hx Hiatal Hernia, Hx Ulcer Musculoskeltal Medical History: Reports Hx Arthritis, Reports Hx Musculoskeletal Trauma Skin Medical History: Reports Hx Cellulitis - chronic nonhealing right ankle fx/wound Psychiatric Medical History: Reports: Hx Depression Traumatic Medical History: Reports: Hx Fractures - right jorge fx repaired w/hardware 07/[address] chawla Infectious Medical History: Reports: Hx Hepatitis - HEP C/REMISSION Past Surgical History: Reports: Hx Cholecystectomy, Hx Neurologic Surgery - back, Hx Orthopedic Surgery - ORIF right bimalleolar ankle fracture, 08/10/2018. Denies: Hx Open Heart Surgery, Hx Pacemaker - Immunizations Immunizations up to date: Yes Hx Diphtheria, Pertussis, Tetanus Vaccination: Yes Physical Exam - Vital signs Vitals: Temp Pulse Resp Pulse Ox 97.5 F 83 16 91 L 12/16/18 18:26 12/16/18 18:26 12/16/18 18:26 12/16/18 18:26 Course - Vital Signs Vital signs: Temp Pulse Resp BP Pulse Ox 97.5 F 83 16 91 L 12/16/18 18:26 12/16/18 18:26 12/16/18 18:26 12/16/18 18:26 Doctor's Discharge - Discharge Referrals: CATRACHITO RG MD [Primary Care Provider] - Follow up as needed
--- NOTE | 2018-12-16 19:17 | RADIOLOGY REPORT (SQ) ---
EXAM DESCRIPTION: TIBIA FIBULA RIGHT COMPLETED DATE/TIME: 12/16/2018 7:08 pm REASON FOR STUDY: Pain swelling infection surgical site COMPARISON: 09/04/2018 NUMBER OF VIEWS: Two views. TECHNIQUE: Two radiographic images acquired of the right tibia and fibula to include the knee and an kle in at least one projection. LIMITATIONS: None. FINDINGS: MINERALIZATION: Normal. BONES: Re- demonstration of open reduction, internal fixation of the distal tibia and fibula. There is no evidence of hardware fracture, perihardware lucency or migration. No fracture or dislocation. SOFT TISSUES: No obvious swelling or foreign body. OTHER: No other significant finding. IMPRESSION: Status post open reduction, internal fixation of the distal tibia and fibula without satnam dence of hardware complication. No acute findings. TECHNICAL DOCUMENTATION: JOB ID: [id number]- All Rights Reserved Reading location - IP/workstation name: [email or web address]
[2018-12-16 20:10] LABS: APPEARANCE,URINE CLEAR; BILIRUBIN,URINE NEGATIVE (NEGATIVE); COLOR,URINE YELLOW; GLUCOSE, URINE NEGATIVE (NEGATIVE); KETONES,URINE NEGATIVE (NEGATIVE); PROTEIN,URINE NEGATIVE (NEGATIVE); URINE SPECIFIC GRAVITY 1.017; UROBILINOGEN,URINE NEGATIVE mg/dL (<2.0)
[2018-12-16 20:13] LABS: ABSOLUTE BASOPHILS # (AUTO) 0.1 10^3/uL (0.0-0.2); ABSOLUTE EOSINOPHILS # (AUTO) 0.7 10^3/uL (0.0-0.6); ABSOLUTE LYMPHOCYTES (AUTO) 2.3 10^3/uL (0.5-4.7); ABSOLUTE MONOCYTES (AUTO) 0.6 10^3/uL (0.1-1.4); ABSOLUTE NEUT (AUTO) 3.1 10^3/uL (1.7-8.2); BASOPHILS % (AUTO) 0.7 % (0-2); EOSINOPHILS % (AUTO) 10.5 % (0-6); HEMATOCRIT 35.5 % (37.9-51.0); HEMOGLOBIN 11.8 g/dL (13.5-17.0); LYMPHOCYTES % (AUTO) 34.5 % (13-45); MEAN CORPUSCULAR HEMOGLOBIN 29.5 pg (27.0-33.4); MEAN CORPUSCULAR HGB CONC 33.4 g/dL (32.0-36.0); MEAN CORPUSCULAR VOLUME 88 fl (80-97); MONOCYTES % (AUTO) 8.7 % (3-13); PLATELET COUNT 288 10^3/uL (150-450); RED BLOOD COUNT 4.02 10^6/uL (4.35-5.55); RED CELL DISTRIBUTION WIDTH 14.9 % (11.5-14.0); SEGMENTED NEUTROPHILS % (AUTO) 45.6 % (42-78); TOTAL CELLS COUNTED % (AUTO) 100 %; WHITE BLOOD COUNT 6.8 10^3/uL (4.0-10.5)
[2018-12-16 21:09] LABS: ALBUMIN 3.9 g/dL (3.5-5.0); ALKALINE PHOSPHATASE 104 U/L (38-126); ANION GAP 9 (5-19); ASPARTATE AMINO TRANSFERASE 16 U/L (17-59); BILIRUBIN,DIRECT 0.3 mg/dL (0.0-0.4); BILIRUBIN,TOTAL 0.3 mg/dL (0.2-1.3); BLOOD UREA NITROGEN 28 mg/dL (7-20); CALCIUM 8.9 mg/dL (8.4-10.2); CARBON DIOXIDE 26 mmol/L (22-30); CHLORIDE 107 mmol/L (98-107); GLUCOSE 112 mg/dL (75-110); POTASSIUM 3.9 mmol/L (3.6-5.0)
--- NOTE | 2018-12-17 01:03 | ER Document Report ---
ED Wound - General Chief Complaint: Wound Infection Stated Complaint: INFECTED INCISION Time Seen by Provider: 12/16/18 18:35 Primary Care Provider: CATRACHITO RG MD [Primary Care Provider] - Follow up as needed Mode of Arrival: Ambulatory TRAVEL OUTSIDE OF THE [place] IN LAST 30 DAYS: No - HPI Patient complains to provider of: Wound infection - Patient has a history of a ORIF of the right tib-fib and has had 3 separate infections in the distal area. He says that they have used Bactrim and his almost healed but once he stops that it recurs. He claims that tonight he has had no fever chills but has some more redness and a little bit of purulent drainage from the area. Apparently his doctor is trying to clear this up to remove the hardware. Occurred: Yesterday - Related Data Allergies/Adverse Reactions: codeine [Codeine] Allergy (Verified 09/04/18 00:43) N/V/D, hives latex Allergy (Verified 09/04/18 00:43) Blisters, takes skin off pregabalin [From Lyrica] Allergy (Verified 09/04/18 00:43) Generalized edema Home Medications: Pt states "the list is in there". Past Medical History - General Information source: Patient - Social History Smoking Status: Unknown if Ever Smoked Frequency of alcohol use: None Drug Abuse: None Family History: Reviewed & Not Pertinent Patient has suicidal ideation: No Patient has homicidal ideation: No - Past Medical History Cardiac Medical History: Reports: Hx Coronary Artery Disease, Hx Hypercholesterolemia, Hx Hypertension - controlled on meds Denies: Hx Heart Attack Pulmonary Medical History: Reports: Hx COPD - not on home O2, Hx Sleep Apnea - not compliant with cpap Denies: Hx Asthma, Hx Bronchitis, Hx Pneumonia Neurological Medical History: Denies: Hx Cerebrovascular Accident, Hx Seizures Endocrine Medical History: Denies: Hx Diabetes Mellitus Type 1, Hx Diabetes Mellitus Type 2 Renal/ Medical History: Denies: Hx End Stage Renal Disease, Hx Hemodialysis, Hx Peritoneal Dialysis GI Medical History: Reports: Hx Hepatitis - HEP C/REMISSION. Denies: Hx Hiatal Hernia, Hx Ulcer Musculoskeletal Medical History: Reports Hx Arthritis, Reports Hx Musculoskeletal Trauma Skin Medical History: Reports Hx Cellulitis - chronic nonhealing right ankle fx/wound Psychiatric Medical History: Reports: Hx Depression Traumatic Medical History: Reports: Hx Fractures - right jorge fx repaired w/hardware 07/[address] chawla Infectious Medical History: Reports: Hx Hepatitis - HEP C/REMISSION Past Surgical History: Reports: Hx Cholecystectomy, Hx Neurologic Surgery - back, Hx Orthopedic Surgery - ORIF right bimalleolar ankle fracture, 08/10/2018. Denies: Hx Open Heart Surgery, Hx Pacemaker - Immunizations Immunizations up to date: Yes Hx Diphtheria, Pertussis, Tetanus Vaccination: Yes Review of Systems - Review of Systems Constitutional: denies: No symptoms reported, See HPI, Chills, Diaphoresis, Fever, Malaise, Weakness, Other, Weight gain, Weight loss, Recent illness Cardiovascular: denies: No symptoms reported, See HPI, Chest pain, Palpitations, Heart racing, Orthopnea, Dyspnea, Syncope, Dizziness, Lightheaded, Edema, Other, Paroxysmal Nocturnal Dysp Respiratory: denies: No symptoms reported, See HPI, Cough, Hurts to breathe, Hemoptysis, Short of breath, Sputum, Stridor, Wheezing, Other Gastrointestinal: denies: No symptoms reported, See HPI, Abdomen distended, Abdominal pain, Diarrhea, Nausea, Vomiting, Constipation, Blood streaked bowels, Poor appetite, Poor fluid intake, Blood in vomit, Black stools, Rectal bleeding, Last bowel movement, Fecal incontinence, Other Genitourinary: denies: No symptoms reported, See HPI, Burning, Dysuria, Discharge, Frequency, Flank pain, Hematuria, Incontinence, Pain, Urgency, Retention, Other Skin: Other - open wound Hematologic/Lymphatic: denies: No symptoms reported, See HPI, Anemia, Blood clots, Easy bleeding, Easy bruising, Enlarged lymph nodes, Swollen glands, Other -: Yes All other systems reviewed and negative Physical Exam - Vital signs Vitals: Temp Pulse Resp Pulse Ox 97.5 F 83 16 91 L 12/16/18 18:26 12/16/18 18:26 12/16/18 18:26 12/16/18 18:26 Notes: PHYSICAL EXAMINATION: GENERAL: Well-appearing, well-nourished and in no acute distress. HEAD: Atraumatic, normocephalic. EYES: Pupils equal round and reactive to light, extraocular movements intact, sclera anicteric, conjunctiva are normal. ENT: nares patent, oropharynx clear without exudates. Moist mucous membranes. NECK: Normal range of motion, supple without lymphadenopathy LUNGS: Breath sounds clear to auscultation bilaterally and equal. No wheezes rales or rhonchi. HEART: Regular rate and rhythm without murmurs ABDOMEN: Soft, nontender, normoactive bowel sounds. No guarding, no rebound. No masses appreciated. EXTREMITIES: Normal range of motion, no pitting or edema. No cyanosis. Right distal lateral lower leg shows 2 small areas of ulceration with minimal purulent looking drainage from the proximal ulcer there is no lymphangitis. Left leg is normal. NEUROLOGICAL: No focal neurological deficits. Moves all extremities spontaneously and on command. PSYCH: Normal mood, normal affect. SKIN: Warm, Dry, normal turgor, no rashes or lesions noted. Patient has a grade 1 sacral decubitus which I explained to him he would need to follow-up with wound care nurse for that. Course - Vital Signs Vital signs: Temp Pulse Resp BP Pulse Ox 97.5 F 83 16 91 L 12/16/18 18:26 12/16/18 18:26 12/16/18 18:26 12/16/18 18:26 - Laboratory Result Diagrams: 12/16/18 19:25 12/16/18 19:25 Laboratory results interpreted by me: 12/16/18 12/16/18 19:25 19:25 RBC 4.02 L Hgb 11.8 L Hct 35.5 L RDW 14.9 H Eos % (Auto) 10.5 H Absolute Eos (auto) 0.7 H BUN 28 H Creatinine 1.26 H Est GFR (MDRD) Non-Af 59 L Glucose 112 H AST 16 L - Diagnostic Test Radiology reviewed: Image reviewed, Reports reviewed - Transfer of Care Notes: 12/17/18 01:04 I believe this is a local wound infection we will put him back on Bactrim but add additionally Keflex to his regimen he should follow-up with his regular doctor I will check a Gram stain they can culture to make sure we are covering this. As far his his sacral decubitus is a grade 1 told him frequent changes in clothing and using padding until he can see a wound care nurse that his doctor can refer him to for further definitive treatment. Discharge - Discharge Clinical Impression: r leg wound infection Sacral decubitus ulcer Qualifiers: Pressure injury stage: stage 1 Qualified Code(s): L89.151 - Pressure ulcer of sacral region, stage 1 Condition: Good Disposition: HOME, SELF-CARE Instructions: Prophylactic Antibiotic ([facility]) Additional Instructions: Keep area covered with gauze return if pus drainage increases red streaks up the leg fever or condition worsens and follow-up with your doctor for referral to a wound care nurse for the sore on your buttock Prescriptions: Sulfamethoxazole/Trimethoprim [Bactrim Ds Tablet] 1 each PO BID #20 tablet Cephalexin Monohydrate [Keflex 500 mg Capsule] 500 mg PO Q6H 5 Days #28 capsule Referrals: CATRACHITO RG MD [Primary Care Provider] - Follow up as needed
[2018-12-17 03:33] VITALS: BP 132/68
== END 2018-12-17 03:31 | disposition home or self-care (01) ==
LOC: ER 18:02
DX: L08.9 Local infection of the skin and subcutaneous tissue, unspecified (principal); L89.151 Pressure ulcer of sacral region, stage 1; R68.83 Chills (without fever); I25.10 Atherosclerotic heart disease of native coronary artery without angina pectoris; I10 Essential (primary) hypertension; J44.9 Chronic obstructive pulmonary disease, unspecified; Z88.5 Allergy status to narcotic agent; Z91.040 Latex allergy status; Z88.6 Allergy status to analgesic agent
CPT/HCPCS: 36415; 80053; 81001; 85025; 87040; 87070; 87075; 87077; 87186; 87205; 99283

== ENCOUNTER 2018-12-25 23:47 | Emergency (ER) | payer MEDICARE ==
--- NOTE | 2018-12-26 00:41 | ER Document Report ---
ED Extremity Problem, Lower - General Chief Complaint: Ankle Pain Stated Complaint: RIGHT ANKLE PAIN Time Seen by Provider: 12/26/18 00:31 Notes: Patient is a 58-year-old male that comes to the emergency department for chief complaint of a nonhealing wound on the right ankle area, patient states he had an ORIF by Dr. Chawla after a fracture, he has been seen multiple times for this now, states that instead of improving the area is worsening with increased wound size and some drainage from the area. Patient denies pain to the area, d enies fever chills, denies nausea or vomiting. He stopped smoking a few weeks ago, he is not a diabetic. Patient was placed on Keflex and Bactrim after being seen in this emergency department on 12/16/2018, they state they have been taking as prescribed. Patient is also scheduled to have the hardware removed on the of this month but states she is concerned that they will not be able to do this because the area of the wound is opening more. Patient denies any other complaints. TRAVEL OUTSIDE OF THE [place] IN LAST 30 DAYS: No - Related Data Allergies/Adverse Reactions: codeine [Codeine] Allergy (Verified 12/26/18 01:24) N/V/D, hives latex Allergy (Verified 12/26/18 01:24) Blisters, takes skin off pregabalin [From Lyrica] Allergy (Verified 12/26/18 01:24) Generalized edema Home Medications: panaprazole, sertraline, baclofen, seroquel, lisinopril, lasix, gabapentin, meloxacam, prozasin, trazadone, methadone, cephalaxin, bactrim ds Past Medical History - General Information source: Patient, Relative - Social History Smoking Status: Former Smoker Frequency of alcohol use: None Drug Abuse: None Lives with: Family Family History: Reviewed & Not Pertinent Patient has suicidal ideation: No Patient has homicidal ideation: No - Past Medical History Cardiac Medical History: Reports: Hx Coronary Artery Disease, Hx Hypercholesterolemia, Hx Hypertension - controlled on meds Denies: Hx Heart Attack Pulmonary Medical History: Reports: Hx COPD - not on home O2, Hx Sleep Apnea - not compliant with cpap Denies: Hx Asthma, Hx Bronchitis, Hx Pneumonia Neurological Medical History: Denies: Hx Cerebrovascular Accident, Hx Seizures Endocrine Medical History: Denies: Hx Diabetes Mellitus Type 1, Hx Diabetes Mellitus Type 2 Renal/ Medical History: Denies: Hx End Stage Renal Disease, Hx Hemodialysis, Hx Peritoneal Dialysis GI Medical History: Reports: Hx Hepatitis - HEP C/REMISSION. Denies: Hx Hiatal Hernia, Hx Ulcer Musculoskeletal Medical History: Reports Hx Arthritis, Reports Hx Musculoskeletal Trauma Skin Medical History: Reports Hx Cellulitis - chronic nonhealing right ankle fx/wound Psychiatric Medical History: Reports: Hx Depression Traumatic Medical History: Reports: Hx Fractures - right jorge fx repaired w/hardware 07/[address] chawla Infectious Medical History: Reports: Hx Hepatitis - HEP C/REMISSION Past Surgical History: Reports: Hx Cholecystectomy, Hx Neurologic Surgery - back, Hx Orthopedic Surgery - ORIF right bimalleolar ankle fracture, 08/10/2018. Denies: Hx Open Heart Surgery, Hx Pacemaker - Immunizations Immunizations up to date: Yes Hx Diphtheria, Pertussis, Tetanus Vaccination: Yes Review of Systems - Review of Systems Constitutional: No symptoms reported EENT: No symptoms reported Cardiovascular: No symptoms reported Respiratory: No symptoms reported Gastrointestinal: No symptoms reported Genitourinary: No symptoms reported Male Genitourinary: No symptoms reported Musculoskeletal: See HPI Skin: See HPI Hematologic/Lymphatic: No symptoms reported Neurological/Psychological: No symptoms reported Physical Exam - Vital signs Vitals: Temp Pulse Resp BP Pulse Ox 97.3 F 64 18 139/83 H 94 12/26/18 00:03 12/26/18 00:03 12/26/18 00:03 12/26/18 00:03 12/26/18 00:03 - Notes Notes: GENERAL: Alert, interacts well. No acute distress. HEAD: Normocephalic, atraumatic. EYES: Pupils equal, round, and reactive to light. Extraocular movements intact. ENT: Oral mucosa moist, tongue midline. Oropharynx unremarkable. NECK: Full range of motion. Supple. Trachea midline. LUNGS: Clear to auscultation bilaterally, no wheezes, rales, or rhonchi. No respiratory distress. HEART: Regular rate and rhythm. No murmur ABDOMEN: Soft, non-tender. Non-distended. Bowel sounds present in all 4 quadrants. GENITOURINARY: Deferred EXTREMITIES: Right distal lateral extremity above the ankle with an open wound over the hardware, this is partial-thickness, I cannot clearly see the hardware at this time. No bones visualized. There is surrounding pink but no notable erythema or abnormal heat, no notable tenderness, no discharge, no foul odor. Normal distal neurovascular exam, normal lower extremity exam otherwise. BACK: no cervical, thoracic, lumbar midline tenderness. No saddle anesthesia, normal distal neurovascular exam. Moves all extremities in full range of motion. NEUROLOGICAL: Alert and oriented x3. Normal speech. Cranial nerves II through XII grossly intact. PSYCH: Normal affect, normal mood. SKIN: Warm, dry, normal turgor. No rashes or lesions noted. Course - Re-evaluation Re-evalutation: Patient's wound is more open reportedly per and possibly more so by the previous documentation. Wound culture from last time showed staph aureus, no MRSA or other finding, patient was on Bactrim and Keflex and has now completed this. No fever, no leukocytosis, no diabetes. Patient is now not smoking. The area is nontender, not notably erythematous or hot, no purulent drainage is noted, does not appear to be infected at this time. No recent injury, had a negative recent x-ray. I discussed with Dr. Roth, only recommendation is cleaning, redressing, follow-up tomorrow with orthopedics. I discussed this with patient and , they state understanding and agreement. - Vital Signs Vital signs: Temp Pulse Resp BP Pulse Ox 98 F 92 15 106/74 96 12/26/18 02:48 12/26/18 02:48 12/26/18 02:48 12/26/18 02:48 12/26/18 02:48 - Laboratory Result Diagrams: 12/26/18 00:29 12/26/18 00:29 Laboratory results interpreted by me: 12/26/18 12/26/18 00:29 00:29 RBC 3.91 L Hgb 11.5 L Hct 34.8 L RDW 15.1 H Eos % (Auto) 6.8 H Seg Neutrophils % 39.2 L BUN 21 H Creatinine 1.32 H Est GFR (MDRD) Non-Af 56 L Discharge - Discharge Clinical Impression: Non-healing wound Condition: Stable Disposition: HOME, SELF-CARE Additional Instructions: The wound that is not healing and does appear to be enlarging, however the culture indicated that the bacteria in the wound was sensitive to the antibiotics that were just completed and the examination of the wound is reassuring at this time. Please contact your orthopedic surgeon tomorrow to discuss the enlarging of the wound and to be evaluated for additional management. Return if you worsen including discolored discharge, developing or spreading redness, developing pain in the area, fever, or any other concerning symptoms.
[2018-12-26 01:17] LABS: ABSOLUTE EOSINOPHILS # (AUTO) 0.3 10^3/uL (0.0-0.6); ABSOLUTE LYMPHOCYTES (AUTO) 2.1 10^3/uL (0.5-4.7); ABSOLUTE MONOCYTES (AUTO) 0.5 10^3/uL (0.1-1.4); BASOPHILS % (AUTO) 0.9 % (0-2); EOSINOPHILS % (AUTO) 6.8 % (0-6); HEMATOCRIT 34.8 % (37.9-51.0); HEMOGLOBIN 11.5 g/dL (13.5-17.0); LYMPHOCYTES % (AUTO) 42.1 % (13-45); MEAN CORPUSCULAR HEMOGLOBIN 29.3 pg (27.0-33.4); MEAN CORPUSCULAR HGB CONC 32.9 g/dL (32.0-36.0); MEAN CORPUSCULAR VOLUME 89 fl (80-97); PLATELET COUNT 292 10^3/uL (150-450); RED BLOOD COUNT 3.91 10^6/uL (4.35-5.55); RED CELL DISTRIBUTION WIDTH 15.1 % (11.5-14.0); SEGMENTED NEUTROPHILS % (AUTO) 39.2 % (42-78); TOTAL CELLS COUNTED % (AUTO) 100 %
[2018-12-26 01:31] LABS: ANION GAP 9 (5-19); BLOOD UREA NITROGEN 21 mg/dL (7-20); CARBON DIOXIDE 29 mmol/L (22-30); CHLORIDE 100 mmol/L (98-107); GLUCOSE 104 mg/dL (75-110); POTASSIUM 4.8 mmol/L (3.6-5.0)
[2018-12-26 02:50] VITALS: BP 106/74
== END 2018-12-26 02:48 | disposition home or self-care (01) ==
LOC: ER 23:47
DX: S91.001A Unspecified open wound, right ankle, initial encounter (principal); T81.89XA Other complications of procedures, not elsewhere classified, initial encounter; M25.571 Pain in right ankle and joints of right foot; X58.XXXA Exposure to other specified factors, initial encounter; I25.10 Atherosclerotic heart disease of native coronary artery without angina pectoris; E78.00 Pure hypercholesterolemia, unspecified; I10 Essential (primary) hypertension; Z88.6 Allergy status to analgesic agent; Z91.040 Latex allergy status; Z90.49 Acquired absence of other specified parts of digestive tract
CPT/HCPCS: 36415; 80048; 85025; 87070; 87205; 99283

== ENCOUNTER 2018-12-28 05:36 | Day surgery (SDC) | payer MEDICARE ==
--- NOTE | 2018-12-21 12:00 | RADIOLOGY REPORT (SQ) ---
EXAM DESCRIPTION: CHEST PA/LATERAL COMPLETED DATE/TIME: 12/21/2018 11:50 am REASON FOR STUDY: PRE-OP COMPARISON: 11/17/2018 EXAM PARAMETERS: NUMBER OF VIEWS: two views TECHNIQUE: Digital Frontal and Lateral radiographic views of the chest acquired. RADIATION DOSE: NA LIMITATIONS: none FINDINGS: LUNGS AND PLEURA: No opacities, masses or pneumothorax. No pleural effusion. MEDIASTINUM AND HILAR STRUCTURES: No masses or contour abnormalities. HEART AND VASCULAR STRUCTURES: Heart normal size. No evidence for failure. BONES: No acute findings. HARDWARE: None in the chest. OTHER: No other significant finding. IMPRESSION: NO SIGNIFICANT RADIOGRAPHIC FINDING IN THE CHEST. TECHNICAL DOCUMENTATION: JOB ID: [id number] [email or web address]- All Rights Reserved Reading location - IP/workstation name: [email or web address]
[2018-12-21 12:18] LABS: APPEARANCE,URINE SLIGHTLY-CLOUDY; BILIRUBIN,URINE NEGATIVE (NEGATIVE); COLOR,URINE YELLOW; GLUCOSE, URINE NEGATIVE (NEGATIVE); KETONES,URINE NEGATIVE (NEGATIVE); LEUKOCYTE ESTERASE,URINE NEGATIVE (NEGATIVE); NITRITE,URINE NEGATIVE (NEGATIVE); PROTEIN,URINE NEGATIVE (NEGATIVE); URINE SPECIFIC GRAVITY 1.016; UROBILINOGEN,URINE NEGATIVE mg/dL (<2.0)
[2018-12-21 12:36] LABS: HEMOGLOBIN 12.6 g/dL (13.5-17.0); MEAN CORPUSCULAR HEMOGLOBIN 29.5 pg (27.0-33.4); MEAN CORPUSCULAR HGB CONC 33.1 g/dL (32.0-36.0); MEAN CORPUSCULAR VOLUME 89 fl (80-97); RED BLOOD COUNT 4.25 10^6/uL (4.35-5.55); RED CELL DISTRIBUTION WIDTH 15.2 % (11.5-14.0); WHITE BLOOD COUNT 7.9 10^3/uL (4.0-10.5)
[2018-12-21 13:04] LABS: ANION GAP 14 (5-19); BLOOD UREA NITROGEN 24 mg/dL (7-20); CALCIUM 9.4 mg/dL (8.4-10.2); CARBON DIOXIDE 22 mmol/L (22-30); CHLORIDE 106 mmol/L (98-107); GLUCOSE 90 mg/dL (75-110)
[2018-12-21 13:05] LABS: PLATELET COUNT 245 10^3/uL (150-450)
--- NOTE | 2018-12-21 18:59 | EKG REPORT ---
SEVERITY:- NORMAL ECG - SINUS RHYTHM : Confirmed by: Dee Dee Cheung MD 21-Dec-2018 18:58:28
[~2018-12-28 05:36] MED LIST changes: -CEFAZOLIN 2 GM/D5W RTU 2 GM/50 ML RTUPB IV ONE; -CEFAZOLIN 2 GM/D5W RTU 2 GM/50 ML RTUPB IV PRN; +CEFAZOLIN SODIUM 2 GM in DEXTROSE 5%-WATER 100 ML IV PRN; +LACTATED RINGERS 1000 ML IV PRN; +LIDOCAINE 0.5% INJ-PF (5 MG/ML) 50 ML SDV SUBCUT PRN
[2018-12-28] MEDS ORDERED: KETAMINE HCL INJ 500 MG/10 ML VIAL ONE (07:00)
[2018-12-28] MEDS ORDERED: HYDROMORPHONE HCL INJ/PF 2 MG/ML AMPULE ONE (07:00)
[2018-12-28] MEDS ORDERED: MIDAZOLAM 2 MG/2 ML INJ ONE (07:01)
[2018-12-28] MEDS ORDERED: FENTANYL CITRATE INJ/PF 100 MCG/2 ML AMPUL ONE (07:01)
[2018-12-28] MEDS ORDERED: PROPOFOL INJ 200 MG/20 ML VIAL IV ONE (07:01)
[2018-12-28] MEDS ORDERED: BUPIVACAINE HCL 0.5 % INJ/PF 30 ML SDV ONE (07:16)
[2018-12-28] MEDS ORDERED: DIPHENHYDRAMINE HCL 50 MG/ML VIAL IV PRN (07:53)
[2018-12-28] MEDS ORDERED: MEPERIDINE HCL/PF INJ 25 MG/1 ML DISP.SYRIN IV PRN (07:53)
--- NOTE | 2018-12-28 08:04 | Discharge Summary ---
Discharge Summary (SDC) - Discharge Final Diagnosis: Delayed wound healing status post ORIF right ankle Date of Surgery: 12/28/18 Discharge Date: 12/28/18 Condition: Good Treatment or Instructions: Touchdown weightbearing restriction right lower extremity. The single thing you can do to help wound healing would be to stop smoking Prescriptions: Oxycodone HCl/Acetaminophen [Percocet 10-325 mg Tablet] 1 each PO Q6 PRN #25 PRN Reason: Sulfamethoxazole/Trimethoprim [Septra-Ds 800-160 mg Tablet] 1 tab PO BID #20 tablet Referrals: CATRACHITO RG MD [Primary Care Provider] - Discharge Diet: Regular Respiratory Treatments at Home: Deep Breathing/Coughing Discharge Activity: Balance Activity w/Rest, No tub bath Home Care Assistance: None Needed Report the Following to Your Physician Immediately: Shortness of Breath, Fever over 101 Degrees, Drainage-Foul Smelling
--- NOTE | 2018-12-28 08:05 | Operative Report ---
Operative Report DATE OF SURGERY: 12/28/18 PREOPERATIVE DIAGNOSIS: Delayed wound healing right lateral ankle wound OPERATION: Hardware removal, repeat wound closure right lateral ankle wound SURGEON: RIK MCCLENDON ANESTHESIA: GA TISSUE REMOVED OR ALTERED: Hardware to CSS. Cultures to microbiology ESTIMATED BLOOD LOSS: Minimal PROCEDURE: With the patient supine rating table the right lower extremities prepped and draped sterile fashion. Limb is elevated for exsanguination and tourniquet inflated 280 torr. The lateral incision is open. The underlying plate and scr ews were easily removed. Wound is debrided. Its irrigated with normal saline containing Betadine and bulb lavage. It subsequently closed using interrupted PDS suture. A sterile compressive dressing and posterior plaster splint were applied and the patient's return to the PACU satisfactory condition.
[2018-12-28] MEDS ORDERED: KETOROLAC TROMETHAMINE INJ/PF 30 MG/1 ML SDV ONE (08:29)
[2018-12-28] MEDS: FENTANYL CITRATE INJ/PF 100 MCG/2 ML AMPUL ONE ×2 (08:30→08:43)
[2018-12-28] MEDS ORDERED: OXYCODONE-ACETAMINOPHEN 5-325 MG TABLET PO ONE (08:45)
[2018-12-28] MEDS ORDERED: OXYCODONE HCL IR 5 MG TABLET PO ONE (08:45)
[2018-12-28] MEDS ORDERED: ACETAMINOPHEN 1,000 MG/100 ML RTUPB IV ONE (09:01)
[2018-12-28 10:49] VITALS: BP 118/78
[2018-12-28] MEDS ORDERED: LIDOCAINE 2% INJ-PF (20 MG/ML) 2 ML AMPUL ONE (14:08)
[2018-12-28] MEDS ORDERED: ONDANSETRON HCL INJ/PF 4 MG/2 ML SDV ONE (14:08)
== END 2018-12-28 10:40 | disposition home or self-care (01) ==
LOC: OROUT 05:36
PROVIDERS: ATTEND Orthopaedic Surgery
DX: T84.89XA Other specified complication of internal orthopedic prosthetic devices, implants and grafts, initial encounter (principal); T84.84XA Pain due to internal orthopedic prosthetic devices, implants and grafts, initial encounter; Y83.9 Surgical procedure, unspecified as the cause of abnormal reaction of the patient, or of later complication, without mention of misadventure at the time of the procedure; M25.571 Pain in right ankle and joints of right foot; Z79.899 Other long term (current) drug therapy; F17.210 Nicotine dependence, cigarettes, uncomplicated
CPT/HCPCS: 93005; 36415 ×2; 87070; 87205; 84132; 85027; 87075; 87077; 80048; 81001; 87186; 71046; 93010; 20680; J2250; J3490 ×2; J0690; J3010; J1885; J2405; J7060; J2704; J0131; 1480; J1170

== ENCOUNTER 2019-01-08 13:40 | Emergency (ER) | payer MEDICARE ==
[2019-01-08] MEDS ORDERED: NORMAL SALINE 1000 ML 1,000 ML IV ONE (14:19)
[2019-01-08] MEDS ORDERED: ONDANSETRON HCL INJ/PF 4 MG/2 ML SDV IV ONE (14:19)
--- NOTE | 2019-01-08 14:21 | ER Document Report ---
ED Medical Screen (RME) - General Chief Complaint: Nausea/Vomiting Stated Complaint: VOMITING Time Seen by Provider: 01/08/19 14:14 Primary Care Provider: CATRACHITO RG MD [Primary Care Provider] - Follow up as needed Mode of Arrival: Wheelchair Information source: Patient Notes: Patient presents complaining of nausea and vomiting started yesterday. Patient denies any abdominal tenderness, fever, or urinary symptoms. Patient denies any cough or cold symptoms. Patient is status post orthopedic surgery on 12/28/2018 for removal of hardware to the right ankle. Patient poor historian I have greeted and performed a rapid initial assessment of this patient. A comprehensive ED assessment and evaluation of the patient, analysis of test results and completion of the medical decision making process will be conducted by additional ED providers. TRAVEL OUTSIDE OF THE [place] IN LAST 30 DAYS: No - Related Data Allergies/Adverse Reactions: codeine [Codeine] Allergy (Verified 01/08/19 14:13) N/V/D, hives latex Allergy (Verified 01/08/19 14:13) Blisters, takes skin off pregabalin [From Lyrica] Allergy (Verified 01/08/19 14:13) Generalized edema Past Medical History - Social History Chew tobacco use (# tins/day): No Frequency of alcohol use: None Drug Abuse: None - Past Medical History Cardiac Medical History: Reports: Hx Coronary Artery Disease, Hx Hypercholesterolemia, Hx Hypertension - controlled on meds Denies: Hx Heart Attack Pulmonary Medical History: Reports: Hx COPD - not on home O2, Hx Sleep Apnea - not compliant with cpap Denies: Hx Asthma, Hx Bronchitis, Hx Pneumonia Neurological Medical History: Denies: Hx Cerebrovascular Accident, Hx Seizures Endocrine Medical History: Denies: Hx Diabetes Mellitus Type 1, Hx Diabetes Mellitus Type 2 Renal/ Medical History: Denies: Hx End Stage Renal Disease, Hx Hemodialysis, Hx Peritoneal Dialysis GI Medical History: Reports: Hx Hepatitis - HEP C/REMISSION. Denies: Hx Hiatal Hernia, Hx Ulcer Musculoskeltal Medical History: Reports Hx Arthritis, Reports Hx Musculoskeletal Trauma Skin Medical History: Reports Hx Cellulitis - chronic nonhealing right ankle fx/wound Psychiatric Medical History: Reports: Hx Depression Traumatic Medical History: Reports: Hx Fractures - right jorge fx repaired w/hardware 07/[address] chawla Infectious Medical History: Reports: Hx Hepatitis - HEP C/REMISSION Past Surgical History: Reports: Hx Cholecystectomy, Hx Neurologic Surgery - back, Hx Orthopedic Surgery - ORIF right bimalleolar ankle fracture, 08/10/2018. Denies: Hx Open Heart Surgery, Hx Pacemaker - Immunizations Immunizations up to date: Yes Hx Diphtheria, Pertussis, Tetanus Vaccination: Yes Physical Exam - Vital signs Vitals: Temp Pulse Resp BP Pulse Ox 97.9 F 106 H 18 145/96 H 100 01/08/19 13:51 01/08/19 13:51 01/08/19 13:51 01/08/19 13:51 01/08/19 13:51 - General General appearance: Alert Notes: Abdomen nontender Course - Vital Signs Vital signs: Temp Pulse Resp BP Pulse Ox 97.9 F 106 H 18 145/96 H 100 01/08/19 13:51 01/08/19 13:51 01/08/19 13:51 01/08/19 13:51 01/08/19 13:51 Doctor's Discharge - Discharge Referrals: CATRACHITO RG MD [Primary Care Provider] - Follow up as needed
[2019-01-08 15:12] LABS: ABSOLUTE LYMPHOCYTES (AUTO) 0.7 10^3/uL (0.5-4.7); ABSOLUTE MONOCYTES (AUTO) 0.2 10^3/uL (0.1-1.4); ABSOLUTE NEUT (AUTO) 5.6 10^3/uL (1.7-8.2); BASOPHILS % (AUTO) 0.2 % (0-2); EOSINOPHILS % (AUTO) 0.1 % (0-6); HEMATOCRIT 40.3 % (37.9-51.0); HEMOGLOBIN 13.6 g/dL (13.5-17.0); LYMPHOCYTES % (AUTO) 10.6 % (13-45); MEAN CORPUSCULAR HEMOGLOBIN 29.8 pg (27.0-33.4); MEAN CORPUSCULAR HGB CONC 33.7 g/dL (32.0-36.0); MEAN CORPUSCULAR VOLUME 88 fl (80-97); MONOCYTES % (AUTO) 2.9 % (3-13); PLATELET COUNT 332 10^3/uL (150-450); RED BLOOD COUNT 4.56 10^6/uL (4.35-5.55); SEGMENTED NEUTROPHILS % (AUTO) 86.2 % (42-78); TOTAL CELLS COUNTED % (AUTO) 100 %; WHITE BLOOD COUNT 6.5 10^3/uL (4.0-10.5)
[2019-01-08 15:37] LABS: ALBUMIN 4.6 g/dL (3.5-5.0); ALKALINE PHOSPHATASE 117 U/L (38-126); ANION GAP 12 (5-19); ASPARTATE AMINO TRANSFERASE 18 U/L (17-59); BILIRUBIN,DIRECT 0.3 mg/dL (0.0-0.4); BILIRUBIN,TOTAL 0.3 mg/dL (0.2-1.3); BLOOD UREA NITROGEN 32 mg/dL (7-20); CALCIUM 9.7 mg/dL (8.4-10.2); CARBON DIOXIDE 26 mmol/L (22-30); CHLORIDE 102 mmol/L (98-107); GLUCOSE 144 mg/dL (75-110); POTASSIUM 5.1 mmol/L (3.6-5.0); TOTAL PROTEIN 8.4 g/dL (6.3-8.2)
[2019-01-08] MEDS ORDERED: ONDANSETRON HCL INJ/PF 4 MG/2 ML SDV ONE (17:11)
[2019-01-08 20:11] LABS: APPEARANCE,URINE CLEAR; BILIRUBIN,URINE NEGATIVE (NEGATIVE); COLOR,URINE YELLOW; GLUCOSE, URINE NEGATIVE (NEGATIVE); KETONES,URINE NEGATIVE (NEGATIVE); PROTEIN,URINE NEGATIVE (NEGATIVE); URINE SPECIFIC GRAVITY 1.015; UROBILINOGEN,URINE NEGATIVE mg/dL (<2.0)
[2019-01-08 21:10] VITALS: BP 141/87
--- NOTE | 2019-01-10 13:31 | ER Document Report ---
Entered by CARYN GODFREY SCRIBE 01/08/19 [id number] Acting as scribe for:LEILA HESTER MD ED GI/ - General Chief Complaint: Nausea/Vomiting Stated Complaint: VOMITING Time Seen by Provider: 01/08/19 14:14 Primary Care Provider: CATRACHITO RG MD [Primary Care Provider] - Follow up as needed Mode of Arrival: Wheelchair Information source: Patient Notes: Patient is a 58-year-old male who presents to the emergency department today with complaints of nausea and vomiting which began last night with associated urinary retention this morning. at bedside states the patient has vomited "25 or 30 times this morning". Patient complains of right lower extremity pain and he has as a postop boot on from ORIF of the right ankle on August 10. Patient is on pain management for this. Patient states he has not had any sick contacts. TRAVEL OUTSIDE OF THE [place] IN LAST 30 DAYS: No - Related Data Allergies/Adverse Reactions: codeine [Codeine] Allergy (Verified 01/08/19 14:13) N/V/D, hives latex Allergy (Verified 01/08/19 14:13) Blisters, takes skin off pregabalin [From Lyrica] Allergy (Verified 01/08/19 14:13) Generalized edema Past Medical History - General Information source: Patient - Social History Smoking Status: Former Smoker Cigarette use (# per day): No Chew tobacco use (# tins/day): No Frequency of alcohol use: None Drug Abuse: None Family History: Reviewed & Not Pertinent Patient has suicidal ideation: No Patient has homicidal ideation: No - Past Medical History Cardiac Medical History: Reports: Hx Coronary Artery Disease, Hx H ypercholesterolemia, Hx Hypertension - controlled on meds Pulmonary Medical History: Reports: Hx COPD - not on home O2, Hx Sleep Apnea - not compliant with cpap GI Medical History: Reports: Hx Hepatitis - HEP C/REMISSION Musculoskeletal Medical History: Reports Hx Arthritis, Reports Hx Musculoskeletal Trauma Skin Medical History: Reports Hx Cellulitis - chronic nonhealing right ankle fx/wound Psychiatric Medical History: Reports: Hx Depression Traumatic Medical History: Reports: Hx Fractures - right jorge fx repaired w/hardware 07/[address] chawla Infectious Medical History: Reports: Hx Hepatitis - HEP C/REMISSION Past Surgical History: Reports: Hx Cholecystectomy, Hx Neurologic Surgery - back, Hx Orthopedic Surgery - ORIF right bimalleolar ankle fracture, 08/10/2018 - Immunizations Immunizations up to date: Yes Hx Diphtheria, Pertussis, Tetanus Vaccination: Yes Review of Systems - Review of Systems Constitutional: No symptoms reported EENT: No symptoms reported Cardiovascular: No symptoms reported Respiratory: No symptoms reported Gastrointestinal: See HPI, Nausea, Vomiting. denies: Abdominal pain Genitourinary: See HPI, Burning, Retention Male Genitourinary: No symptoms reported Musculoskeletal: No symptoms reported Skin: No symptoms reported Hematologic/Lymphatic: No symptoms reported Neurological/Psychological: No symptoms reported -: Yes All other systems reviewed and negative Physical Exam - Vital signs Vitals: Temp Pulse Resp BP Pulse Ox 97.9 F 106 H 18 145/96 H 100 01/08/19 13:51 01/08/19 13:51 01/08/19 13:51 01/08/19 13:51 01/08/19 13:51 - Notes Notes: Physical Exam: General: Alert, appears well. HEENT: Normocephalic. Atraumatic. PERRL. Extraocular movements intact. Oropharynx clear. Neck: Supple. Non-tender. Respiratory: No respiratory distress. Clear and equal breath sounds bilaterally. Cardiovascular: Regular rate and rhythm. Abdominal: Normal Inspection. Non-tender. No distension. Normal Bowel Sounds. Back: No gross abnormalities. Extremities: Moves all four extremities. Upper extremities: Normal inspection. Normal ROM. Lower extremities: Normal inspection. No edema. Normal ROM. Neurological: Normal cognition. AAOx4. Normal speech. Psychological: Normal affect. Normal Mood. Skin: Warm. Dry. Normal color. Course - Re-evaluation Re-evalutation: 01/08/19 19:12 Patient's labs within normal limits are nonsignificant. Patient was found to have no abdominal pain but over the course of his stay he had acute urinary retention. He does have a history of BPH and is taking tamsulosin on a daily basis. Indwelling Boyer was placed with bladder bag. Patient already has urology establishment and he is to follow-up early next week for reevaluation. In regards to his vomiting, improved with nausea medications will provide Zofran prescription for this. Do not feel like he has any acute intra-abdominal pathology his labs are normal he does not have any abdominal pain. We will check his urinalysis to ensure no signs of infection 01/08/19 19:13 01/08/19 20:32 Urinalysis shows no signs of infection will be placed with leg bladder bag and he is to follow-up with his urologist as previously discussed - Vital Signs Vital signs: Temp Pulse Resp BP Pulse Ox 97.9 F 106 H 18 145/96 H 100 01/08/19 13:51 01/08/19 13:51 01/08/19 13:51 01/08/19 13:51 01/08/19 13:51 - Laboratory Result Diagrams: 01/08/19 15:00 01/08/19 15:00 Laboratory results interpreted by me: 01/08/19 01/08/19 15:00 15:00 RDW 15.0 H Lymph % (Auto) 10.6 L [place] % (Auto) 2.9 L Seg Neutrophils % 86.2 H Potassium 5.1 H BUN 32 H Creatinine 1.46 H Est GFR (MDRD) Non-Af 49 L Glucose 144 H Total Protein 8.4 H Discharge - Discharge Clinical Impression: Acute urinary retention Vomiting Qualifiers: Vomiting type: unspecified Vomiting Intractability: non-intractable Nausea presence: with nausea Qualified Code(s): R11.2 - Nausea with vomiting, unspecified Condition: Good Disposition: HOME, SELF-CARE Instructions: Vomiting ([facility]), Antinausea Medication ([facility]), Urinary Retention ([facility]), Boyer Catheter Care ([facility]) Additional Instructions: Please follow-up with your urologist and call them tomorrow discussing your acute urinary retention and need for placement of Boyer catheter Prescriptions: Ondansetron [Zofran Odt 4 mg Tablet] 1 tab PO ASDIR PRN #15 tab.rapdis PRN Reason: For Nausea/Vomiting Referrals: CATRACHITO RG MD [Primary Care Provider] - Follow up as needed I personally performed the services described in the documentation, reviewed and edited the documentation which was dictated to the scribe in my presence, and it accurately records my words and actions.
== END 2019-01-08 21:32 | disposition home or self-care (01) ==
LOC: ER 13:40
DX: R11.2 Nausea with vomiting, unspecified (principal); N40.1 Benign prostatic hyperplasia with lower urinary tract symptoms; R33.8 Other retention of urine; M79.604 Pain in right leg; I25.10 Atherosclerotic heart disease of native coronary artery without angina pectoris; I10 Essential (primary) hypertension; J44.9 Chronic obstructive pulmonary disease, unspecified; Z98.890 Other specified postprocedural states; Z79.899 Other long term (current) drug therapy; Z87.891 Personal history of nicotine dependence; Z88.5 Allergy status to narcotic agent; Z88.6 Allergy status to analgesic agent; Z91.040 Latex allergy status
CPT/HCPCS: 99284; 36415; 83690; 85025; 80053; 81001; J2405; J7030

== ENCOUNTER 2019-08-06 15:48 | Emergency (ER) | payer MEDICARE ==
[2019-08-06 16:11] LABS: ABSOLUTE BASOPHILS # (AUTO) 0.1 10^3/uL (0.0-0.2); ABSOLUTE LYMPHOCYTES (AUTO) 1.7 10^3/uL (0.5-4.7); ABSOLUTE MONOCYTES (AUTO) 0.6 10^3/uL (0.1-1.4); ABSOLUTE NEUT (AUTO) 6.1 10^3/uL (1.7-8.2); BASOPHILS % (AUTO) 0.6 % (0-2); EOSINOPHILS % (AUTO) 0.2 % (0-6); HEMATOCRIT 37.8 % (37.9-51.0); LYMPHOCYTES % (AUTO) 20.3 % (13-45); MEAN CORPUSCULAR HEMOGLOBIN 30.8 pg (27.0-33.4); MEAN CORPUSCULAR HGB CONC 34.3 g/dL (32.0-36.0); MEAN CORPUSCULAR VOLUME 90 fl (80-97); MONOCYTES % (AUTO) 6.8 % (3-13); PLATELET COUNT 301 10^3/uL (150-450); RED BLOOD COUNT 4.22 10^6/uL (4.35-5.55); RED CELL DISTRIBUTION WIDTH 14.7 % (11.5-14.0); SEGMENTED NEUTROPHILS % (AUTO) 72.1 % (42-78); TOTAL CELLS COUNTED % (AUTO) 100 %; WHITE BLOOD COUNT 8.4 10^3/uL (4.0-10.5)
[2019-08-06 16:13] LABS: INTERNATIONAL RATION (INR) 1.07; PROTHROMBIN TIME 13.9 SEC (11.4-15.4)
[2019-08-06 16:14] LABS: PARTIAL THROMBOPLASTIN TIME 27.7 SEC (23.5-35.8)
--- NOTE | 2019-08-06 16:14 | ER Document Report ---
ED General - General Chief Complaint: S/S of Possible Stroke Stated Complaint: NAUSEA,DIZZINESS Time Seen by Provider: 08/06/19 16:10 Primary Care Provider: CATRACHITO RG MD [Primary Care Provider] - Follow up as needed Notes: 58-year-old man presents to the emergency department with a history of episode of shaking/seizure-like activity which occurred last night according to the , patient did developed some slurred speech and increased weakness had to be helped from his chair to move around. He also experience a fall and fall last night and episode of falling. EMS was called and the patient notes, increase in falling recently. Patient fell last night and had some seizure activity afterwards. According to the patient is not had his usual self, shaking episodes are new and weakness with speech being slurred is also new. 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 He is on a number of medications for treatment of this syndrome. Buspirone, Seroquel, methadone, baclofen, meloxicam, trazodone, he also takes lisinopril, meclizine, and Flomax. TRAVEL OUTSIDE OF THE [place] IN LAST 30 DAYS: No - Related Data Allergies/Adverse Reactions: codeine [Codeine] Allergy (Verified 01/08/19 14:13) N/V/D, hives latex Allergy (Verified 01/08/19 14:13) Blisters, takes skin off pregabalin [From Lyrica] Allergy (Verified 01/08/19 14:13) Generalized edema Past Medical History - Social History Smoking Status: Never Smoker Frequency of alcohol use: None Drug Abuse: None Family History: Reviewed & Not Pertinent Patient has homicidal ideation: No - Past Medical History Cardiac Medical History: Reports: Hx Coronary Artery Disease, Hx Hypercholesterolemia, Hx Hypertension - controlled on meds Denies: Hx Heart Attack Pulmonary Medical History: Reports: Hx COPD - not on home O2, Hx Sleep Apnea - not compliant with cpap Denies: Hx Asthma, Hx Bronchitis, Hx Pneumonia Neurological Medical History: Denies: Hx Cerebrovascular Accident, Hx Seizures Endocrine Medical History: Denies: Hx Diabetes Mellitus Type 1, Hx Diabetes M ellitus Type 2 Renal/ Medical History: Denies: Hx End Stage Renal Disease, Hx Hemodialysis, Hx Peritoneal Dialysis GI Medical History: Reports: Hx Hepatitis - HEP C/REMISSION. Denies: Hx Hiatal Hernia, Hx Ulcer Musculoskeletal Medical History: Reports Hx Arthritis, Reports Hx Musculoskeletal Trauma Skin Medical History: Reports Hx Cellulitis - chronic nonhealing right ankle fx/wound Psychiatric Medical History: Reports: Hx Depression Traumatic Medical History: Reports: Hx Fractures - right jorge fx repaired w/hardware 07/[address] chawla Infectious Medical History: Reports: Hx Hepatitis - HEP C/REMISSION Past Surgical History: Reports: Hx Cholecystectomy, Hx Neurologic Surgery - back, Hx Orthopedic Surgery - ORIF right bimalleolar ankle fracture, 08/10/2018. Denies: Hx Open Heart Surgery, Hx Pacemaker - Immunizations Immunizations up to date: Yes Hx Diphtheria, Pertussis, Tetanus Vaccination: Yes Review of Systems - Review of Systems Notes: Constitutional: Negative for fever. HENT: Negative for sore throat. Eyes: Negative for visual changes. Cardiovascular: Negative for chest pain. Respiratory: Negative for shortness of breath. Gastrointestinal: Negative for abdominal pain, vomiting or diarrhea. Genitourinary: Negative for dysuria. Musculoskeletal: + Back pain. Skin: Negative for rash. Neurological: + Right-sided weakness, + slurred speech, + seizure-like activity Physical Exam - Vital signs Vitals: Temp 98.2 F 08/06/19 16:04 - Notes Notes: PHYSICAL EXAMINATION: Physical Exam: General: Well-nourished well-developed in no acute distress HEENT: NC/AT, pupils equal round and reactive to light, MM moist,nares clear, oropharynx clear, airway patent Neck: supple, no adenopathy, no masses. Good range of motion Lungs: clear, no wheezing, no rales no rhonchi CVS: Regular rate and rhythm no murmur gallop or rub Abdomen: Soft, active, nontender, no masses, no hepatosplenomegaly Ext: No edema, clubbing or cyanosis. Neuro: Alert and responsive, answers questions appropriately, moving all 4 extremities on command, speech slurred, increased right nasolabial fold, patient's shifted to the right Skin: Intact no open lesions, no rash Course - Re-evaluation Re-evalutation: 08/06/19 19:07 Patient's arrived at the emergency department notes that this is not his normal function. The shaking episodes and weakness and falls are new. He has a number of medications, however, has been taking them for several months. CT scan of the head and MRI are negative for signs of stroke. Patient was given 1 g of Keppra IV given the episodes and the lack of clarity as to if he may have had a seizure. The other question is this related to his medications. 08/06/19 19:24 I have contacted the neurology service at [facility], the provider, Rula Skinner PA-C, notes that the patient will need a CTA head and neck which will be performed at [facility]. I discussed the transfer plans with the patient's , she is adamant that he needs to be seen at a facility with specialty services. 08/06/19 19:54 The hospitalist at the [facility] has accepted the patient in transfer. - Vital Signs Vital signs: Temp Pulse Resp BP Pulse Ox 98.2 F 84 14 128/70 H 94 08/06/19 16:04 08/06/19 18:00 08/06/19 19:02 08/06/19 19:02 08/06/19 19:02 - Laboratory Result Diagrams: 08/06/19 15:51 08/06/19 15:51 Laboratory results interpreted by me: 08/06/19 08/06/19 15:51 15:51 RBC 4.22 L Hgb 13.0 L Hct 37.8 L RDW 14.7 H BUN 28 H - Diagnostic Test Radiology reviewed: Image reviewed, Reports reviewed Radiology results interpreted by me: 08/06/19 19:10 Chest x-ray: No acute cardiopulmonary findings CT head noncontrast: No acute intracranial findings, no signs of stroke. MRI of the head, noncontrast: No acute findings, microvascular cerebral vascular disease. - EKG Interpretation by Me EKG shows normal: Sinus rhythm - EKG reveals normal sinus rhythm rate of 80, no acute ST or T wave abnormalities seen. Normal axis. Critical Care Note - Critical Care Note Total time excluding time spent on procedures (mins): 60 - Critical care time s pent obtaining history from patient or surrogate, discussions with consultants, development of treatment plan with patient or surrogate, evaluation of patient's response to treatment, examination of patient, ordering and performing treatments and interventions, ordering and review of laboratory studies, re- evaluation of patient's condition, ordering and review of radiographic studies and review of old charts Discharge - Discharge Clinical Impression: Observed seizure-like activity, Slurred speech, Right sided weakness COPD (chronic obstructive pulmonary disease) Qualifiers: COPD type: unspecified COPD Qualified Code(s): J44.9 - Chronic obstructive pulmonary disease, unspecified Condition: Stable Disposition: [facility] Referrals: CATRACHITO RG MD [Primary Care Provider] - Follow up as needed
--- NOTE | 2019-08-06 16:15 | RADIOLOGY REPORT (SQ) ---
EXAM DESCRIPTION: CT HEAD WITHOUT IMAGES COMPLETED DATE/TIME: 08/06/2019 4:06 pm REASON FOR STUDY: Stroke-like symptoms COMPARISON: CT head 11/17/2018 TECHNIQUE: Axial images acquired through the brain without intravenous contrast. Images reviewed wi th bone, brain and subdural windows. Additional sagittal and coronal reconstructions were generated. Images stored on PACS. All CT scanners at this facility use dose modulation, iterative reconstruction, and/or weight based d osing when appropriate to reduce radiation dose to as low as reasonably achievable (ALARA). [facility]: Dose Right [facility]: CareDose [facility]: Dose Right [facility]: Teradose 4D [facility]: Language Cloud RADIATION DOSE: mGy. LIMITATIONS: None. FINDINGS: VENTRICLES: Normal size and contour. CEREBRUM: No masses. No hemorrhage. No midline shift. No evidence for acute infarction. Normal gra y/white matter differentiation. No areas of low density in the white matter. CEREBELLUM: No masses. No hemorrhage. No alteration of density. No evidence for acute infarction. EXTRAAXIAL SPACES: No fluid collections. No masses. ORBITS AND GLOBE: No intra- or extraconal masses. Normal contour of globe without masses. Postsurgi lyndsey changes of cataract surgery. CALVARIUM: No fracture. PARANASAL SINUSES: Mild mucosal thickening within the right maxillary and ethmoid sinuses. SOFT TISSUES: No mass or hematoma. OTHER: No other significant finding. IMPRESSION: No acute intracranial findings. EVIDENCE OF ACUTE STROKE: NO. COMMENT: Quality ID # [id number]: Final reports with documentation of one or more dose reduction techniques (e.g., Automated exposure control, adjustment of the mA and/or kV according to patient size, use of iterative reconstruction technique) TECHNICAL DOCUMENTATION: JOB ID: [id number] 2010 [employer]- All Rights Reserved Reading location - IP/workstation name: [email or web address]
[2019-08-06 16:21] LABS: ALBUMIN 4.5 g/dL (3.5-5.0); ALKALINE PHOSPHATASE 97 U/L (38-126); ANION GAP 7 (5-19); ASPARTATE AMINO TRANSFERASE 21 U/L (17-59); BILIRUBIN,DIRECT 0.3 mg/dL (0.0-0.4); BILIRUBIN,TOTAL 0.5 mg/dL (0.2-1.3); BLOOD UREA NITROGEN 28 mg/dL (7-20); CARBON DIOXIDE 30 mmol/L (22-30); CHLORIDE 101 mmol/L (98-107); CREATINE KINASE 124 U/L (55-170); GLUCOSE 103 mg/dL (75-110); POTASSIUM 4.8 mmol/L (3.6-5.0); TOTAL PROTEIN 7.9 g/dL (6.3-8.2)
[2019-08-06 16:32] LABS: CREATINE KINASE MB 3.23 ng/mL (<4.55)
[2019-08-06 16:38] LABS: TROPONIN I < 0.012 ng/mL
[2019-08-06] MEDS ORDERED: ONDANSETRON HCL INJ/PF 4 MG/2 ML SDV IV ONE (16:42)
[2019-08-06] MEDS ORDERED: LEVETIRACETAM 1000 MG/NACL-ISO 1,000 MG/100 ML RTUPB IV ONE (16:42)
[2019-08-06 16:53] LABS: APPEARANCE,URINE CLEAR; BILIRUBIN,URINE NEGATIVE (NEGATIVE); COLOR,URINE YELLOW; GLUCOSE, URINE NEGATIVE (NEGATIVE); KETONES,URINE NEGATIVE (NEGATIVE); PROTEIN,URINE NEGATIVE (NEGATIVE); URINE SPECIFIC GRAVITY 1.021; UROBILINOGEN,URINE NEGATIVE mg/dL (<2.0)
[2019-08-06 17:08] LABS: URINE AMPHETAMINES SCREEN NEGATIVE; URINE BARBITURATES SCREEN NEGATIVE; URINE BENZODIAZEPINES SCREEN NEGATIVE; URINE COCAINE SCREEN NEGATIVE; URINE MARIJUANA (THC) SCREEN NEGATIVE; URINE PHENCYCLIDINE SCREEN NEGATIVE
[2019-08-06 17:09] LABS: URINE METHADONE SCREEN UNCONFIRMED POSITIVE
--- NOTE | 2019-08-06 17:24 | RADIOLOGY REPORT (SQ) ---
EXAM DESCRIPTION: CHEST SINGLE VIEW IMAGES COMPLETED DATE/TIME: 08/06/2019 4:04 pm REASON FOR STUDY: Stroke-like symptoms COMPARISON: 12/21/2018 TECHNIQUE: Single frontal radiographic view of the chest acquired. NUMBER OF VIEWS: One view. LIMITATIONS: None. FINDINGS: LUNGS AND PLEURA: No pneumothorax. No consolidation or pleural effusion. MEDIASTINUM AND HILAR STRUCTURES: Stable. HEART AND VASCULAR STRUCTURES: Stable. BONES: No acute findings. HARDWARE: None in the chest. OTHER: No other significant finding. IMPRESSION: NO ACUTE FINDINGS. TECHNICAL DOCUMENTATION: JOB ID: [id number] [place]-72 2010 [employer]- All Rights Reserved Reading location - IP/workstation name: [email or web address]
--- NOTE | 2019-08-06 18:14 | RADIOLOGY REPORT (SQ) ---
EXAM DESCRIPTION: MRI HEAD WITHOUT IMAGES COMPLETED DATE/TIME: 08/06/2019 5:54 pm REASON FOR STUDY: strokelike symptoms COMPARISON: CT head without contrast performed earlier on the same day. MRI brain 10/20/2012 TECHNIQUE: Multiplanar imaging includes non-contrasted T1, T2, FLAIR, and diffusion with ADC map seq uences. Images stored on PACS. LIMITATIONS: Several sequences are motion degraded. FINDINGS: ANATOMY: No anomalies. Normal vascular flow voids. Pituitary fossa normal. CSF SPACES: Normal in size and contour. No hemorrhage. CEREBRUM: Sulci and gyri normal in size and contour. Progressive scattered T2/FLAIR hyperintense foc i within the subcortical, deep and periventricular white matter, compatible with chronic small vessel ischemic changes. No evidence of hemorrhage, mass, or extraaxial fluid collection. POSTERIOR FOSSA: No signal alteration. No hemorrhage. No edema, masses or mass effect. Internal dick tory canals, cerebello-pontine angles, mastoids normal. DIFFUSION IMAGING: Negative for acute or sub-acute infarction. ORBITS: No masses. Globes normal. Postsurgical changes of cataract surgery. PARANASAL SINUSES: Mild mucosal thickening within the right maxillary and ethmoid sinuses. Left max illary sinus mucous retention cyst. OTHER: No other significant finding. IMPRESSION: No acute ischemia. Progressive chronic small vessel ischemic changes. EVIDENCE OF ACUTE STROKE: NO. TECHNICAL DOCUMENTATION: JOB ID: [id number] [employer]- All Rights Reserved Reading location - IP/workstation name: [email or web address]
--- NOTE | 2019-08-06 19:01 | EKG REPORT ---
SEVERITY:- NORMAL ECG - SINUS RHYTHM : Confirmed by: Virgil Kramer 06-Aug-2019 19:01:25
[2019-08-06 21:08] VITALS: BP 154/88
--- NOTE | 2019-08-06 21:47 | ER Document Report ---
Doctor's Note Notes: 08/06/19 21:46 Transport has arrived to take patient to [facility]. This MD went to the patient's bedside and examined the patient prior to his transfer. Patient is sleeping has normal heart sounds and normal breath sounds and appears to be in no acute distress at this time. Patient appears stable for transport.
== END 2019-08-06 21:56 | disposition short-term general hospital (02) ==
LOC: ER 15:48
DX: R53.1 Weakness (principal); H53.8 Other visual disturbances; R29.818 Other symptoms and signs involving the nervous system; R29.6 Repeated falls; G03.9 Meningitis, unspecified; M54.9 Dorsalgia, unspecified; I25.10 Atherosclerotic heart disease of native coronary artery without angina pectoris; I10 Essential (primary) hypertension; J44.9 Chronic obstructive pulmonary disease, unspecified; Z79.899 Other long term (current) drug therapy; Z79.891 Long term (current) use of opiate analgesic; Z88.6 Allergy status to analgesic agent; Z88.5 Allergy status to narcotic agent; Z91.041 Radiographic dye allergy status
CPT/HCPCS: 93005; 99291; 51701; 96374; 96375; 36415; 82553; 82962; 82550; 85025; 85610; 85730; 80053; 81001; 84484; 80307; 70551; 71045; 70450; 93010; J2405; J1953

== ENCOUNTER 2019-09-21 15:20 | Emergency (ER) | payer MEDICARE ==
--- NOTE | 2019-09-21 15:36 | ER Document Report ---
ED Medical Screen (RME) - General Chief Complaint: General Weakness Stated Complaint: GENERAL WEAKNESS Time Seen by Provider: 09/21/19 15:35 Primary Care Provider: CATRACHITO RG MD [Primary Care Provider] - Follow up as needed Mode of Arrival: Medic Information source: Patient Notes: 59-year-old male presented to ED for complaint of being sick. He states he is had nausea and has vomited twice the last time was a couple hours ago. States he has not had any fevers no diarrhea no other problems. He states both of his legs hurt but that is due to a chronic condition. He is alert oriented respirations regular nonlabored speaking in full sentences. He did give fluids from EMS. He states he does smoke a pack a day drinks about once a month does not do any drugs except for what is prescribed for him. I have greeted and performed a rapid initial assessment of this patient. A comprehensive ED assessment and evaluation of the patient, analysis of test results and completion of medical decision making process will be conducted by an additional ED providers. TRAVEL OUTSIDE OF THE [place] IN LAST 30 DAYS: No - Related Data Allergies/Adverse Reactions: codeine [Codeine] Allergy (Verified 01/08/19 14:13) N/V/D, hives latex Allergy (Verified 01/08/19 14:13) Blisters, takes skin off pregabalin [From Lyrica] Allergy (Verified 01/08/19 14:13) Generalized edema Past Medical History - Past Medical History Cardiac Medical History: Reports: Hx Coronary Artery Disease, Hx Hypercholesterolemia, Hx Hypertension - controlled on meds Denies: Hx Heart Attack Pulmonary Medical History: Reports: Hx COPD - not on home O2, Hx Sleep Apnea - not compliant with cpap Denies: Hx Asthma, Hx Bronchitis, Hx Pneumonia Neurological Medical History: Denies: Hx Cerebrovascular Accident, Hx Seizures Endocrine Medical History: Denies: Hx Diabetes Mellitus Type 1, Hx Diabetes Mellitus Type 2 Renal/ Medical History: Denies: Hx End Stage Renal Disease, Hx Hemodialysis, Hx Peritoneal Dialysis GI Medical History: Reports: Hx Hepatitis - HEP C/REMISSION. Denies: Hx Hiatal Hernia, Hx Ulcer Musculoskeltal Medical History: Reports Hx Arthritis, Reports Hx Musculoskeletal Trauma Skin Medical History: Reports Hx Cellulitis - chronic nonhealing right ankle fx/wound Psychiatric Medical History: Reports: Hx Depression Traumatic Medical History: Reports: Hx Fractures - right jorge fx repaired w/hardware 07/[address] chawla Infectious Medical History: Reports: Hx Hepatitis - HEP C/REMISSION Past Surgical History: Reports: Hx Cholecystectomy, Hx Neurologic Surgery - back, Hx Orthopedic Surgery - ORIF right bimalleolar ankle fracture, 08/10/2018. Denies: Hx Open Heart Surgery, Hx Pacemaker - Immunizations Immunizations up to date: Yes Hx Diphtheria, Pertussis, Tetanus Vaccination: Yes Doctor's Discharge - Discharge Referrals: CATRACHITO RG MD [Primary Care Provider] - Follow up as needed
[2019-09-21] MEDS ORDERED: ONDANSETRON HCL INJ/PF 4 MG/2 ML SDV IV ONE (15:37)
[2019-09-21 16:05] LABS: ABSOLUTE BASOPHILS # (AUTO) 0.1 10^3/uL (0.0-0.2); ABSOLUTE LYMPHOCYTES (AUTO) 0.9 10^3/uL (0.5-4.7); ABSOLUTE MONOCYTES (AUTO) 0.5 10^3/uL (0.1-1.4); ABSOLUTE NEUT (AUTO) 10.5 10^3/uL (1.7-8.2); BASOPHILS % (AUTO) 0.5 % (0-2); EOSINOPHILS % (AUTO) 0.2 % (0-6); HEMATOCRIT 41.9 % (37.9-51.0); LYMPHOCYTES % (AUTO) 7.3 % (13-45); MEAN CORPUSCULAR HGB CONC 33.3 g/dL (32.0-36.0); MEAN CORPUSCULAR VOLUME 90 fl (80-97); MONOCYTES % (AUTO) 4.4 % (3-13); PLATELET COUNT 268 10^3/uL (150-450); RED BLOOD COUNT 4.66 10^6/uL (4.35-5.55); RED CELL DISTRIBUTION WIDTH 14.8 % (11.5-14.0); SEGMENTED NEUTROPHILS % (AUTO) 87.6 % (42-78); TOTAL CELLS COUNTED % (AUTO) 100 %
[2019-09-21 16:25] LABS: ALBUMIN 4.6 g/dL (3.5-5.0); ALKALINE PHOSPHATASE 109 U/L (38-126); ANION GAP 7 (5-19); ASPARTATE AMINO TRANSFERASE 74 U/L (17-59); BILIRUBIN,DIRECT 0.4 mg/dL (0.0-0.4); BILIRUBIN,TOTAL 0.5 mg/dL (0.2-1.3); BLOOD UREA NITROGEN 45 mg/dL (7-20); CALCIUM 9.6 mg/dL (8.4-10.2); CARBON DIOXIDE 26 mmol/L (22-30); CHLORIDE 106 mmol/L (98-107); GLUCOSE 113 mg/dL (75-110); POTASSIUM 5.1 mmol/L (3.6-5.0); TOTAL PROTEIN 8.2 g/dL (6.3-8.2)
--- NOTE | 2019-09-21 16:25 | ER Document Report ---
Entered by CARYN GODFREY SCRIBE 09/21/19 [id number] Acting as scribe for:SEBASTIAN SERRANO MD ED General - General Chief Complaint: General Weakness Stated Complaint: GENERAL WEAKNESS Time Seen by Provider: 09/21/19 15:35 Primary Care Provider: CATRACHITO RG MD [Primary Care Provider] - Follow up as needed Mode of Arrival: Medic Information source: Patient Notes: This 59 year old male patient presents to the emergency department today with complaints of nausea and vomiting. Patient vomited twice prior to arrival per E notes. He states he also fell recently but states he can't remember when. Patient is on pain management, taking 10mg percocet and 10mg methadone. Patient states he walks without assistance at baseline. TRAVEL OUTSIDE OF THE [place] IN LAST 30 DAYS: No - Related Data Allergies/Adverse Reactions: codeine [Codeine] Allergy (Verified 09/21/19 15:40) N/V/D, hives latex Allergy (Verified 09/21/19 15:40) Blisters, takes skin off pregabalin [From Lyrica] Allergy (Verified 09/21/19 15:40) Generalized edema Past Medical History - General Information source: Patient - Social History Smoking Status: Current Every Day Smoker Chew tobacco use (# tins/day): No Frequency of alcohol use: Occasional Drug Abuse: None Family History: Reviewed & Not Pertinent - Past Medical History Cardiac Medical History: Reports: Hx Coronary Artery Disease, Hx Hypercholesterolemia, Hx Hypertension - controlled on meds Denies: Hx Heart Attack Pulmonary Medical History: Reports: Hx COPD - not on home O2, Hx Sleep Apnea - not compliant with cpap Denies: Hx Asthma, Hx Bronchitis, Hx Pneumonia Neurological Medical History: Denies: Hx Cerebrovascular Accident, Hx Seizures Endocrine Medical History: Denies: Hx Diabetes Mellitus Type 1, Hx Diabetes Mellitus Type 2 Renal/ Medical History: Denies: Hx End Stage Renal Disease, Hx Hemodialysis, Hx Peritoneal Dialysis GI Medical History: Reports: Hx Hepatitis - HEP C/REMISSION. Denies: Hx Hiatal Hernia, Hx Ulcer Musculoskeletal Medical History: Reports Hx Arthritis, Reports Hx Musculoskeletal Trauma Skin Medical History: Reports Hx Cellulitis - chronic nonhealing right ankle fx/wound Psychiatric Medical History: Reports: Hx Depression Traumatic Medical History: Reports: Hx Fractures - right jorge fx repaired w/hardware 07/[address] chawla Infectious Medical History: Reports: Hx Hepatitis - HEP C/REMISSION Past Surgical History: Reports: Hx Cholecystectomy, Hx Neurologic Surgery - back, Hx Orthopedic Surgery - ORIF right bimalleolar ankle fracture, 08/10/2018. Denies: Hx Open Heart Surgery, Hx Pacemaker - Immunizations Immunizations up to date: Yes Hx Diphtheria, Pertussis, Tetanus Vaccination: Yes Physical Exam - Vital signs Vitals: Temp Pulse Resp BP Pulse Ox 98.2 F 95 21 H 140/93 H 99 09/21/19 15:29 09/21/19 15:29 09/21/19 15:29 09/21/19 15:29 09/21/19 15:29 - Notes Notes: Physical Exam: General: Alert. HEENT: Normocephalic. Atraumatic. PERRL. Extraocular movements intact. Oropharynx clear. Neck: Supple. Non-tender. Respiratory: No respiratory distress. Clear and equal breath sounds bilaterally. Cardiovascular: Regular rate and rhythm. Abdominal: Obese. Non-tender. No distension. Normal Bowel Sounds. Back: No gross abnormalities. Extremities: Moves all four extremities. Upper extremities: Right proximal dorsal forearm has an old scabbed over abrasio n without surrounding erythema. Lower extremities: Tenderness with palpation to bilateral legs which is chronic. Neurological: Normal cognition. AAOx4. Normal speech. Psychological: Normal affect. Normal Mood. Skin: Warm. Dry. Normal color. Course - Re-evaluation Re-evalutation: 09/21/19 20:17 The patient's arrived and confirms that he did fall on his right arm but it was yesterday and he fell on a log outdoors. They do not know when his last tetanus shot was. She does confirm that he was outside in his shed which does not have air conditioning and he does not drink enough water. He has been receiving prescriptions for gabapentin 800 mg 4 times daily, she has reduced him to 3 times daily, I did reinforce with her that 3 times daily with the maximum recommended dose of that medication. - Vital Signs Vital signs: Temp Pulse Resp BP Pulse Ox 98.2 F 95 21 H 140/93 H 99 09/21/19 15:32 09/21/19 15:29 09/21/19 15:29 09/21/19 15:29 09/21/19 15:29 - Laboratory Result Diagrams: 09/21/19 15:47 09/21/19 15:47 Laboratory results interpreted by me: 09/21/19 09/21/19 09/21/19 15:47 15:47 15:47 WBC 12.0 H RDW 14.8 H Lymph % (Auto) 7.3 L Absolute Neuts (auto) 10.5 H Seg Neutrophils % 87.6 H Potassium 5.1 H BUN 45 H Creatinine 1.65 H Est GFR ( Amer) 52 L Est GFR (MDRD) Non-Af 43 L Glucose 113 H AST 74 H Creatine Kinase 2611 H Discharge - Discharge Clinical Impression: Dehydration Rhabdomyolysis Qualifiers: Rhabdomyolysis type: non-traumatic Qualified Code(s): M62.82 - Rhabdomyolysis Heat exposure Qualifiers: Encounter type: initial encounter Qualified Code(s): T67.9XXA - Effect of heat and light, unspecified, initial encounter Avulsion of skin of right forearm Qualifiers: Encounter type: initial encounter Qualified Code(s): S51.801A - Unspecified open wound of right forearm, initial encounter Condition: Stable Disposition: HOME, SELF-CARE Additional Instructions: Your evaluation today shows that you suffered from some heat injury when you were out in your "man cave" in the heat we have been having. You were not drinking nearly enough water to be out in that kind of heat and humidity. As you can see from the elevated CK muscle enzymes, your muscles were injured by the heat and dehydration. It is very important that you drink plenty of fluids throughout the day in the evening for the next several days and stay indoors where it is cool. Keep the skin abrasion on your right forearm clean and dressed with bacitracin ointment. Follow-up with your primary care provider if not improving. RETURN TO THE EMERGENCY ROOM IF ANY NEW OR WORSENING SYMPTOMS. Referrals: CATRACHITO RG MD [Primary Care Provider] - Follow up as needed I personally performed the services described in the documentation, reviewed and edited the documentation which was dictated to the scribe in my presence, and it accurately records my words and actions.
[2019-09-21 16:40] LABS: APPEARANCE,URINE CLEAR; BILIRUBIN,URINE NEGATIVE (NEGATIVE); COLOR,URINE YELLOW; GLUCOSE, URINE NEGATIVE (NEGATIVE); KETONES,URINE NEGATIVE (NEGATIVE); LEUKOCYTE ESTERASE,URINE NEGATIVE (NEGATIVE); NITRITE,URINE NEGATIVE (NEGATIVE); PROTEIN,URINE NEGATIVE (NEGATIVE); URINE SPECIFIC GRAVITY 1.018; UROBILINOGEN,URINE NEGATIVE mg/dL (<2.0)
[2019-09-21 16:55] LABS: URINE AMPHETAMINES SCREEN NEGATIVE; URINE BARBITURATES SCREEN NEGATIVE; URINE BENZODIAZEPINES SCREEN NEGATIVE; URINE COCAINE SCREEN NEGATIVE; URINE MARIJUANA (THC) SCREEN NEGATIVE; URINE PHENCYCLIDINE SCREEN NEGATIVE
[2019-09-21] MEDS ORDERED: NORMAL SALINE 1000 ML 1,000 ML IV ONE ×3 (16:55→18:38)
[2019-09-21 16:56] LABS: URINE METHADONE SCREEN UNCONFIRMED POSITIVE
[2019-09-21] MEDS ORDERED: DIPH/PERTUSS(ACELL)/TETANUS VAC/PF 0.5 ML SYR (>=10YO) IM ONE (20:18)
[2019-09-21 21:11] VITALS: BP 162/95
== END 2019-09-21 21:12 | disposition home or self-care (01) ==
LOC: ER 15:20
DX: T67.9XXA Effect of heat and light, unspecified, initial encounter (principal); X30.XXXA Exposure to excessive natural heat, initial encounter; E86.0 Dehydration; R11.2 Nausea with vomiting, unspecified; S50.811A Abrasion of right forearm, initial encounter; W19.XXXA Unspecified fall, initial encounter; Y92.009 Unspecified place in unspecified non-institutional (private) residence as the place of occurrence of the external cause; M62.82 Rhabdomyolysis; I25.10 Atherosclerotic heart disease of native coronary artery without angina pectoris; I10 Essential (primary) hypertension; J44.9 Chronic obstructive pulmonary disease, unspecified; F17.200 Nicotine dependence, unspecified, uncomplicated; Z23 Encounter for immunization; Z79.891 Long term (current) use of opiate analgesic; Z79.899 Other long term (current) drug therapy; Z88.6 Allergy status to analgesic agent; Z88.5 Allergy status to narcotic agent; Z91.040 Latex allergy status
CPT/HCPCS: 99284; 96361; 90471; 96374; 36415; 87086; 82550; 83690; 85025; 80053; 81001; 80307; 90715; J2405; J7030

== ENCOUNTER → 2019-11-07 | Outpatient (CLI) | payer MEDICARE ==
[2019-11-07 12:35] VITALS: BP 158/82
--- NOTE | 2019-11-07 12:35 | ER RDC ASSESSMENT REPORT ---
Intake - In the Last 14 days Have you traveled outside [place]?: No Have you been in close contact with someone CONFIRMED: Yes Worked in Healthcare?: No - Symptoms Subjective Fever(Premium feverish): No Chills: No Muscule Aches: No Runny Nose: No Sore Throat: No Cough (New or worsening chronic cough): No Shortness of breath: No Nausea or Vomiting: Yes Headache: No Abdominal Pain: No Diarrhea(3 or more loose stools in last 24 hours): Yes - Do you have any of the following Chronic lung disease: Asthma or emphysema or COPD: Yes Cystic Fibrosis: No Diabetes: No High Blood Pressure: Yes Cardiovascular Disease: Yes Chronic Kidney Disease: No Chronic Liver Disease: No Chronic blood disorder like Sickle Cell Disease: No Weak immune system due to disease or medication: No Neurologic condition that limits movement: No Developmental delay - Moderate to Severe: No Morbid Obesity (>100 pounds over ideal weight): No - Objective Temperature: 98.3 F Pulse Rate: 93 Respiratory Rate: 18 Blood Pressure: 158/82 O2 Sat by Pulse Oximetry: 95 Objective: Given above, testing performed: covid Disposition: Home; Selfcare General - General Stated Complaint: other Time Seen by Provider: 11/07/19 12:00 Mode of Arrival: Ambulatory Information source: Patient - HPI Notes: 59-year-old male presents to [facility] clinic for COVID-19 testing. Patient reports his roommate was in contact with a landlord that has tested positive for COVID- 19. Patient does admit some nausea and diarrhea but states this is related to underlying disorders and not acute. Denies any fever, chills, cough, shortness of breath, headache, myalgia, sore throat, or rhinorrhea. - Related Data Allergies/Adverse Reactions: codeine [Codeine] Allergy (Verified 09/21/19 15:40) N/V/D, hives latex Allergy (Verified 09/21/19 15:40) Blisters, takes skin off pregabalin [From Lyrica] Allergy (Verified 09/21/19 15:40) Generalized edema Past Medical History - General Information source: Patient - Social History Smoking Status: Former Smoker Family History: Reviewed & Not Pertinent - Past Medical History Cardiac Medical History: Reports: Hx Coronary Artery Disease, Hx Hypercholesterolemia, Hx Hypertension - controlled on meds Denies: Hx Heart Attack Pulmonary Medical History: Reports: Hx COPD - not on home O2, Hx Sleep Apnea - not compliant with cpap Denies: Hx Asthma, Hx Bronchitis, Hx Pneumonia EENT Medical History: Reports: None Neurological Medical History: Reports: Other. Denies: Hx Cerebrovascular Accident, Hx Seizures Other: vertigo Endocrine Medical History: Reports: None. Denies: Hx Diabetes Mellitus Type 1, Hx Diabetes Mellitus Type 2 Renal/ Medical History: Reports: None. Denies: Hx End Stage Renal Disease, Hx Hemodialysis, Hx Peritoneal Dialysis Malignancy Medical History: Reports None GI Medical History: Reports: Hx Hepatitis - HEP C/REMISSION. Denies: Hx Hiatal Hernia, Hx Ulcer Musculoskeletal Medical History: Reports Hx Arthritis, Reports Hx Musculoskeletal Trauma Skin Medical History: Reports Hx Cellulitis - chronic nonhealing right ankle fx/wound Psychiatric Medical History: Reports: Hx Depression Traumatic Medical History: Reports: Hx Fractures - right jorge fx repaired w/hardware 07/[address] chawla Infectious Medical History: Reports: Hx Hepatitis - HEP C/REMISSION Past Surgical History: Reports: Hx Cholecystectomy, Hx Neurologic Surgery - back, Hx Orthopedic Surgery - ORIF right bimalleolar ankle fracture, 08/10/2018. Denies: Hx Open Heart Surgery, Hx Pacemaker Physical Exam - General General appearance: Appears well, Alert In distress: None Notes: PHYSICAL EXAMINATION: GENERAL: Well-appearing and in no acute distress. HEAD: Atraumatic, normocephalic. EYES: sclera anicteric, conjunctiva are normal. ENT: nares patent. Moist mucous membranes. NECK: Normal range of motion, supple without lymphadenopathy. LUNGS: No increased work of breathing. Lung sounds CTAB and equal. No wheezes rales or rhonchi. HEART: Regular rate and rhythm without murmurs. ABDOMEN: Soft, nontender, normal bowel sounds, no guarding. EXTREMITIES: Normal range of motion, no pitting edema. No cyanosis. NEUROLOGICAL: A&O x 3. Normal speech. PSYCH: Normal mood, normal affect. SKIN: Warm, Dry, normal turgor, no rashes or lesions noted Patient Education/Counseling Counseling/Education: Patient presents with symptoms associated with possible Covid 19 infection. Patient does not have emergency worrying symptoms such as difficulty breathing, shortness of breath, chest pain, pressure, confusion or cyanosis. Patient appears suitable for discharge as vital signs are stable and patient is nontoxic in appearance. Good return precautions have been discussed with patient, patient verbalized understanding and is agreeable with discharge plan of care at this time. Guidance for worsening S/SX: As a person under investigation for Covid 19, the [facility], division of public health advises you to adhere to the following guidance until your test results are reported to you. If your test result is positive, you will receive additional information from your provider and your local health department at that time. Remain at home until you are cleared by the health provider or public health authorities. Keep a log of visitors to your home, notify any visitors to your home of your isolation status. If you plan to move to a new address or leave the county, notify the local health department in your County. Call your doctor or seek care if you have an urgent medical need. Before seeking medical care, call ahead to get instructions from the provider before arriving at the medical office clinic or hospital. Notify them that you are being tested for the virus that causes Covid 19 so that arrangements can be made, as necessary, to prevent transmission to others in the healthcare setting. Next, notify the local health department in your county. If a medical emergency arises and you need to call 911, inform the first responders that you are being tested for the virus that causes Covid 19. Next, notify the local health department in your county. RDC Discharge - Discharge Clinical Impression: Encounter for screening laboratory testing for COVID-19 virus Condition: Good Disposition: Home; Selfcare
== END ==
LOC: RDC 11:12
PROVIDERS: ATTEND Registered Nurse
DX: Z20.828 Contact with and (suspected) exposure to other viral communicable diseases (principal)
CPT/HCPCS: U0003; C9803; 87635; 99201; 99211

== ENCOUNTER 2020-01-08 00:34 | Emergency (ER) | payer MEDICARE ==
--- NOTE | 2020-01-08 01:24 | ER Document Report ---
ED Medical Screen (RME) - General Chief Complaint: Pain Stated Complaint: TAILBONE PAIN Time Seen by Provider: 01/08/20 01:18 Primary Care Provider: CATRACHITO RG MD [Primary Care Provider] - Follow up as needed Mode of Arrival: Ambulatory Information source: Patient Notes: 59-year-old male coming in today with tailbone pain. Says he fell 2 weeks ago. Having pain tonight. Difficult to sleep. Has chronic back pain normally. Takes methadone for this. Denies bladder or bowel dysfunction. Denies saddle anesthesia. Denies focal weakness. Denies urinary symptoms. Wants to get an x-ray to see if he broke this area. General nontoxic, no distress Lumbar spine: Tender to the mid lumbosacral region. No step-off I have greeted and performed a rapid initial assessment of this patient. A comprehensive ED assessment and evaluation of the patient, analysis of test results and completion of the medical decision making process will be conducted by additional ED providers. TRAVEL OUTSIDE OF THE [place] IN LAST 30 DAYS: No - Related Data Allergies/Adverse Reactions: codeine [Codeine] Allergy (Verified 09/21/19 15:40) N/V/D, hives latex Allergy (Verified 09/21/19 15:40) Blisters, takes skin off pregabalin [From Lyrica] Allergy (Verified 09/21/19 15:40) Generalized edema Past Medical History - Past Medical History Cardiac Medical History: Reports: Hx Coronary Artery Disease, Hx Hypercholesterolemia, Hx Hypertension - controlled on meds Denies: Hx Heart Attack Pulmonary Medical History: Reports: Hx COPD - not on home O2, Hx Sleep Apnea - not compliant with cpap Denies: Hx Asthma, Hx Bronchitis, Hx Pneumonia Neurological Medical History: Denies: Hx Cerebrovascular Accident, Hx Seizures Endocrine Medical History: Denies: Hx Diabetes Mellitus Type 1, Hx Diabetes Mellitus Type 2 Renal/ Medical History: Denies: Hx End Stage Renal Disease, Hx Hemodialysis, Hx Peritoneal Dialysis GI Medical History: Reports: Hx Hepatitis - HEP C/REMISSION. Denies: Hx Hiatal Hernia, Hx Ulcer Musculoskeltal Medical History: Reports Hx Arthritis, Reports Hx Musculoskeletal Trauma Skin Medical History: Reports Hx Cellulitis - chronic nonhealing right ankle fx/wound Psychiatric Medical History: Reports: Hx Depression Traumatic Medical History: Reports: Hx Fractures - right jorge fx repaired w/hardware 07/[address] chawla Infectious Medical History: Reports: Hx Hepatitis - HEP C/REMISSION Past Surgical History: Reports: Hx Cholecystectomy, Hx Neurologic Surgery - back, Hx Orthopedic Surgery - ORIF right bimalleolar ankle fracture, 08/10/2018. Denies: Hx Open Heart Surgery, Hx Pacemaker - Immunizations Immunizations up to date: Yes Hx Diphtheria, Pertussis, Tetanus Vaccination: Yes Physical Exam - Vital signs Vitals: Temp Pulse Resp BP Pulse Ox 97.8 F 88 18 142/77 H 96 01/08/20 00:42 01/08/20 00:42 01/08/20 00:42 01/08/20 00:42 01/08/20 00:42 Course - Vital Signs Vital signs: Temp Pulse Resp BP Pulse Ox 97.8 F 88 18 142/77 H 96 01/08/20 00:42 01/08/20 00:42 01/08/20 00:42 01/08/20 00:42 01/08/20 00:42 Doctor's Discharge - Discharge Referrals: CATRACHITO RG MD [Primary Care Provider] - Follow up as needed
--- NOTE | 2020-01-08 02:10 | RADIOLOGY REPORT (SQ) ---
Sacrum and coccyx x-ray three views on 01/08/2020 1:34 AM CLINICAL INDICATION: Fall two weeks ago, pain COMPARISON: None FINDINGS: Vascular calcifications are noted. Mild increased stool is noted in the colon suggesting constipation. Calcifications in the pelvis are consistent with phleboliths. The SI joints are well aligned. Degenerative changes are noted in the lower lumbar spine. There are no fractures. IMPRESSION: No acute abnormality.
[2020-01-08 04:08] VITALS: BP 134/77
--- NOTE | 2020-01-08 04:31 | ER Document Report ---
ED General - General Chief Complaint: Low Back Pain Stated Complaint: TAILBONE PAIN Time Seen by Provider: 01/08/20 01:18 Primary Care Provider: CATRACHITO RG MD [Primary Care Provider] - Follow up in 3-5 days Mode of Arrival: Ambulatory TRAVEL OUTSIDE OF THE [place] IN LAST 30 DAYS: No - HPI Notes: 59-year-old male to the emergency department with complaints of 2 weeks of tail bone pain. He states that he and his significant other fell while they were trying to get on a pallet outside their home. He states he fell directly onto the tailbone. He denies any saddle paresthesia, bladder or bowel incontinence, urinary retention. He states that he has had his normal radiculopathy from his chronic back pain in his legs. They have not changed. He states he has been concerned that he may be broke his tailbone. Of note, he is in chronic pain management. He takes Percocet, baclofen, methadone. He denies any other pain. His significant other is also states that he has a small decubitus ulcer on his buttocks. She states that they would like some antibiotics because it seems to be getting a little bit worse. She states it got worse after some skin was pulled off from the adhesive dressing she was using. Denies any fevers or chills - Related Data Allergies/Adverse Reactions: codeine [Codeine] Allergy (Verified 09/21/19 15:40) N/V/D, hives latex Allergy (Verified 09/21/19 15:40) Blisters, takes skin off pregabalin [From Lyrica] Allergy (Verified 09/21/19 15:40) Generalized edema Home Medications: methadone, percocet, lisinopril, Past Medical History - General Information source: Patient, Relative - Social History Smoking Status: Current Every Day Smoker Frequency of alcohol use: None Drug Abuse: None Family History: Reviewed & Not Pertinent - Past Medical History Cardiac Medical History: Reports: Hx Coronary Artery Disease, Hx Hype rcholesterolemia, Hx Hypertension - controlled on meds Denies: Hx Heart Attack Pulmonary Medical History: Reports: Hx COPD - not on home O2, Hx Sleep Apnea - not compliant with cpap Denies: Hx Asthma, Hx Bronchitis, Hx Pneumonia Neurological Medical History: Denies: Hx Cerebrovascular Accident, Hx Seizures Endocrine Medical History: Denies: Hx Diabetes Mellitus Type 1, Hx Diabetes Mellitus Type 2 Renal/ Medical History: Denies: Hx End Stage Renal Disease, Hx Hemodialysis, Hx Peritoneal Dialysis GI Medical History: Reports: Hx Hepatitis - HEP C/REMISSION. Denies: Hx Hiatal Hernia, Hx Ulcer Musculoskeletal Medical History: Reports Hx Arthritis, Reports Hx Musculoskeletal Trauma Skin Medical History: Reports Hx Cellulitis - chronic nonhealing right ankle fx/wound Psychiatric Medical History: Reports: Hx Depression Traumatic Medical History: Reports: Hx Fractures - right jorge fx repaired w/hardware 07/[address] chawla Infectious Medical History: Reports: Hx Hepatitis - HEP C/REMISSION Past Surgical History: Reports: Hx Cholecystectomy, Hx Neurologic Surgery - back, Hx Orthopedic Surgery - ORIF right bimalleolar ankle fracture, 08/10/2018. Denies: Hx Open Heart Surgery, Hx Pacemaker - Immunizations Immunizations up to date: Yes Hx Diphtheria, Pertussis, Tetanus Vaccination: Yes Review of Systems - Review of Systems Constitutional: denies: Chills, Fever EENT: No symptoms reported Cardiovascular: denies: Chest pain, Palpitations, Heart racing, Orthopnea, Dyspnea, Syncope, Dizziness, Lightheaded Respiratory: denies: Cough, Short of breath Gastrointestinal: denies: Abdominal pain, Diarrhea, Nausea, Vomiting Genitourinary: denies: Incontinence, Retention Musculoskeletal: Other - Tailbone pain, see HPI Skin: Other - Decubitus ulcer to the left buttocks see HPI Neurological/Psychological: No symptoms reported -: Yes All other systems reviewed and negative Physical Exam - Vital signs Vitals: Temp Pulse Resp BP Pulse Ox 97.8 F 88 18 142/77 H 96 01/08/20 00:42 01/08/20 00:42 01/08/20 00:42 01/08/20 00:42 01/08/20 00:42 Interpretation: Normal - General General appearance: Appears well, Alert In distress: None - HEENT Head: Normocephalic, Atraumatic Eyes: Normal Pupils: PERRL Neck: Normal, Supple - Respiratory Respiratory status: No respiratory distress Chest status: Nontender Breath sounds: Normal. No: Rales, Rhonchi, Wheezing Chest palpation: Normal - Cardiovascular Rhythm: Regular Heart sounds: Normal auscultation Murmur: No - Abdominal Inspection: Normal Distension: No distension Bowel sounds: Normal Tenderness: Nontender. No: Tender, McBurney's point, Joyner's sign, Guarding, Rebound Organomegaly: No organomegaly - Back Back: Normal, Nontender Notes: Patient is to palpation to the midline coccyx. There is no jennifer bruising. There is no edema. There is no tenderness to palpation over the midline cervical, thoracic, lumbar spine. There is no step-off or deformity. 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 He was irritable and difficult to obtain a history from. He states multiple times that he would just like to be discharged, Irritable - Skin Skin Temperature: Warm Skin Moisture: Dry Notes: To the left buttocks there is a stage II decubitus ulcer with some mild scabbing and mild erythema. Slightly warm to the touch. Not foul-smelling or have bowel drainage. No streaking erythema. Course - Re-evaluation Re-evalutation: 01/08/20 Impression: Fall, coccyx contusion. Stage II decubitus. Will write for antibiotics for the decub for possibility of coverage for small cellulitis. Advised patient to take his pain medicine. I also advised ice and a donut pillow. Encouraged to return if any worsening symptoms. We will have him follow-up with primary care. Will discharge home - Vital Signs Vital signs: Temp Pulse Resp BP Pulse Ox 97.8 F 72 18 134/77 H 95 01/08/20 00:42 01/08/20 04:04 01/08/20 00:42 01/08/20 04:04 01/08/20 04:04 - Diagnostic Test Radiology reviewed: Image reviewed, Reports reviewed Discharge - Discharge Clinical Impression: Coccyx contusion Qualifiers: Encounter type: initial encounter Qualified Code(s): S30.0XXA - Contusion of lower back and pelvis, initial encounter Fall Qualifiers: Encounter type: initial encounter Qualified Code(s): W19.XXXA - Unspecified fall, initial encounter Decubitus skin ulcer Qualifiers: Pressure injury location: buttock Pressure injury stage: stage 2 Laterality: left Qualified Code(s): L89.322 - Pressure ulcer of left buttock, stage 2 Condition: Stable Disposition: HOME, SELF-CARE Instructions: Contusion ([facility]), Decubitus Ulcer ([facility]) Additional Instructions: Continue your pain medicines at home. Get a donut pillow and use that to sit on. Apply ice to the tailbone 3 times a day for 20 minutes at a time. For the stage II decubitus ulcer on her buttocks please apply antibiotic ointment and take oral antibiotics. Return if worsening symptoms such as worsening pain, fevers, chills. Please follow-up with primary care physician. Prescriptions: Bacitracin [Bacitracin Oint Packets 144/Box] 1 each TP BID #1 packet Clindamycin HCl 300 mg PO TID #21 capsule Referrals: CATRACHITO RG MD [Primary Care Provider] - Follow up in 3-5 days
== END 2020-01-08 05:12 | disposition home or self-care (01) ==
LOC: ER 00:34
DX: S30.0XXA Contusion of lower back and pelvis, initial encounter (principal); W19.XXXA Unspecified fall, initial encounter; Y93.89 Activity, other specified; Y92.009 Unspecified place in unspecified non-institutional (private) residence as the place of occurrence of the external cause; L89.322 Pressure ulcer of left buttock, stage 2; M54.10 Radiculopathy, site unspecified; R45.4 Irritability and anger; F17.200 Nicotine dependence, unspecified, uncomplicated; I25.10 Atherosclerotic heart disease of native coronary artery without angina pectoris; I10 Essential (primary) hypertension; J44.9 Chronic obstructive pulmonary disease, unspecified; Z79.891 Long term (current) use of opiate analgesic; Z79.899 Other long term (current) drug therapy; Z88.6 Allergy status to analgesic agent; Z88.5 Allergy status to narcotic agent; Z91.040 Latex allergy status
CPT/HCPCS: 72220; 99283